=== PATIENT | male | born 1955 | race Hispanic/Latino ===

== ENCOUNTER 2018-06-06 20:23 | Observation (INO) | payer OTHER ==
--- OUTSIDE RECORDS SUMMARY | 2018-06-06 20:25 | XMS REPORT ---
:1955 Author Organization eClinicalWorks Care Team Providers Name Role Phone Rober Rocky Provider Role Unavailable Allergies No Known Allergies Problems Problem Type Condition Code Onset Dates Condition Status Problem Nocturia R35.1 Active Problem Hyperlipidemia E78.5 Active Problem Hypertension I10 Active Problem Hyponatremia E87.1 Active Problem Family history of diabetes mellitus Z83.3 Active Problem SOB (shortness of breath) R06.02 Active Problem Frequency of urination R35.0 Active Problem Allergic rhinitis, seasonal J30.2 Active Problem Erectile dysfunction N52.9 Active Problem Family hx of prostate cancer Z80.42 Active Assessment Wheezing R06.2 Active Assessment Allergic rhinitis, seasonal J30.2 Active Assessment Hyperlipidemia E78.5 Active Assessment SOB (shortness of breath) R06.02 Active Assessment Hypertension I10 Active Assessment Insomnia G47.00 Active Problem Insomnia G47.00 Active Medications Medication Code Code Instructions Start End Status Dosage System Date Date Ezetimibe [facility] [place] 35367792525 10 MG Orally Active 1 tablet Once a day Flonase ND 84139942264 50 MCG/ACT Active 1 spray in Nasally Once a each day nostril Aspirin ND 94379913973 81 MG Orally Active 1 tablet Once a day Cozaar [facility] [place] 97200550737 25 Active TAKE ONE TABLET BY MOUTH DAILY ProAir HFA [facility] [place] 23509284884 108 (90 Base) Active 2 puffs as MCG/ACT needed Inhalation every 6 hrs Albuterol ND 71876276043 (2.5 MG/3ML) June 14, Active 3 ml as Sulfate 0.083% 2018 needed Inhalation Three times a day PRN Cough, Wheezing, Shortness of Breath Symbicort ND 43827057215 160-4.5 MCG/ACT Active 2 puffs Inhalation Twice a day Results No Known Results Summary Purpose eClinicalWorks Submission
--- OUTSIDE RECORDS SUMMARY | 2018-06-06 20:26 | XMS REPORT ---
:1955 Author Organization eClinicalWorks Care Team Providers Name Role Phone Chepe Richterh Provider Role Unavailable Allergies, Adverse Reactions, Alerts Substance Reaction Event Type Viagra Info Not Available Drug Allergy Crestor Info Not Available Drug Allergy Problems Problem Type Condition Code Onset Dates Condition Status Problem Hypertension I10 Active Problem Allergic rhinitis, seasonal J30.2 Active Problem Hyperlipidemia E78.5 Active Problem SOB (shortness of breath) R06.02 Active Problem Hyponatremia E87.1 Active Problem GERD without esophagitis K21.9 Active Problem Family hx of prostate cancer Z80.42 Active Problem Frequency of urination R35.0 Active Problem Family history of diabetes mellitus Z83.3 Active Problem Erectile dysfunction N52.9 Active Assessment Allergic rhinitis, seasonal J30.2 Active Assessment GERD without esophagitis K21.9 Active Assessment Hyponatremia E87.1 Active Assessment Statin not tolerated Z78.9 Active Assessment Hypertension I10 Active Assessment Insomnia G47.00 Active Problem Insomnia G47.00 Active Assessment Hyperlipidemia E78.5 Active Problem Nocturia R35.1 Active Medications Medication Code Code Instructions Start End Status Dosage System Date Date Albuterol [facility] 97799948305 (2.5 MG/3ML) Active 3 ml as Sulfate 0.083% needed Inhalation Three times a day PRN Cough, Wheezing, Shortness of Breath Aspirin ND 47104119896 81 MG Orally Active 1 tablet Once a day Advair HFA [facility] 50296742413 115-21 MCG/ACT Feb , Active 2 puffs Inhalation 2018 Twice a day Pantoprazole ND 52044348759 40 MG Orally Active 1 tablet Sodium Once a day ProAir HFA ND 96153925422 90 Active INHALE TWO PUFFS BY MOUTH FOUR TIMES A DAY NEEDED FOR COUGH,WHEEZI NG AND SHORTNESS OF BREATH Ezetimibe ND 09914800187 10 MG Active TAKE ONE TABLET BY MOUTH DAILY Flonase ND 89825427023 50 MCG/ACT Active 1 spray in Nasally Once a each nostril day Symbicort [facility] 11213021639 160-4.5 MCG/ACT July 15, Active 2 puffs Inhalation 2018 Twice a day Ezetimibe [facility] 60367633035 10 MG Orally Active 1 tablet Once a day Cozaar [facility] 31436822028 50 MG Orally Active take one Once a day tablet by mouth daily Breo Ellipta [facility] 56016393702 100-25 MCG/INH Active 1 puff Inhalation Once a day Results No Known Results Summary Purpose eClinicalWorks Submission
--- OUTSIDE RECORDS SUMMARY | 2018-06-06 20:26 | XMS REPORT ---
[...] Start End Status Dosage System Date Date Symbicort [facility] 60705813243 160-4.5 MCG/ACT Active 2 puffs Inhalation Twice a day ProAir HFA [facility] 13472802385 108 (90 Base) Active 2 puffs as MCG/ACT needed Inhalation every 6 hrs Cozaar [facility] 44874283132 25 Active TAKE ONE TABLET BY MOUTH DAILY Albuterol ND 03298771204 (2.5 MG/3ML) Active 3 ml as Sulfate 0.083% needed Inhalation Three times a day PRN Cough, Wheezing, Shortness of Breath Aspirin ND 31871412094 81 MG Orally Active 1 tablet Once a day Ezetimibe ND 48724561343 10 MG Orally Active 1 tablet Once a day Flonase ND 15797639579 50 MCG/ACT Active 1 spray in Nasally Once a each nostril day ProAir HFA [facility] 78347297102 90 Active INHALE TWO PUFFS BY MOUTH FOUR TIMES A DAY NEEDED FOR COUGH,WHEEZI NG AND SHORTNESS OF BREATH Results No Known Results Summary Purpose eClinicalWorks Submission
[2018-06-06 20:58] LABS: Absolute Lymphocytes (CBC) 0.9 K/uL (0.7-4.9); Absolute Monocytes 0.5 K/uL (0.1-1.3); Basophils % 0.4 % (0-1.3); Eosinophils % 0.1 % (0-4.4); Lymphocytes % 8.4 % (15.3-44.8); MPV 7.2 fL (7.6-11.3); Monocytes % 4.8 % (3.3-12.3); RBC Red Blood Cell Count 4.76 M/uL (4.33-5.43)
[2018-06-06 21:16] LABS: Protime INR 1.11
[2018-06-06 21:24] LABS: Blood Morphology Comment NOT SEEN (NOT SEEN); Platelet Estimate ADEQ; Urine White Blood Cell Casts OK
[2018-06-06 21:27] LABS: ALT/SGPT 66 U/L (12-78); AST/SGOT 45 U/L (15-37); Alkaline Phosphatase 58 U/L (45-117); BUN Blood Urea Nitrogen 9 mg/dL (7-18); Bicarbonate 25 mmol/L (21-32); Bilirubin Direct 0.2 mg/dL (0-0.2); Bilirubin Total 1.5 mg/dL (0.2-1.0); CKMB Creatine Kinase MB < 1.0 ng/mL (0.3-3.6); Creatine Phosphokinase 152 U/L (39-308); Glucose Level 132 mg/dL (74-106); Lipase 77 U/L (73-393); Magnesium 1.6 mg/dL (1.8-2.4); NT PRO-BNP 59 pg/mL (<125); Potassium 4.4 mmol/L (3.5-5.1); Sodium Level 129 mmol/L (136-145); Troponin (Emerg Dept Use Only) < 0.02 ng/mL (0.0-0.045)
--- NOTE | 2018-06-06 21:29 | RAD REPORT ---
EXAM DESCRIPTION: RAD - Chest Single View - 06/06/2018 9:22 pm CLINICAL HISTORY: DYSPNEA Chest pain. COMPARISON: Chest Pa And Lat (2 Views) dated 04/13/2018; Chest Single View dated 03/08/2017; CHEST SINGL E VIEW dated 05/10/2015 FINDINGS: Portable technique limits examination quality. Mild diffuse interstitial prominence is noted which may indicate underlying bronchitis or reactive ai rway disease. No focal infiltrate typical of pneumonia seen. The heart is normal in size. No displace d fractures.
[2018-06-06] MEDS ORDERED: Levofloxacin500mg IV 500 MG/100 ML BAG IV ONE (23:23)
[2018-06-06] MEDS ORDERED: CEFTRIAXONE 1000 MG/VIAL ONE (23:23)
[2018-06-06] MEDS ORDERED: NA CHLORIDE 0.9% 100 ML IV ONE (23:24)
[2018-06-06] MEDS ORDERED: NA CHLORIDE 0.9% 1,000 ML ONE (23:24)
--- NOTE | 2018-06-07 00:48 | EDPHYS ---
Physician Documentation [facility] Name: Joel Romano Age: 62 yrs Sex: Male : 1955 Arrival Date: 06/06/2018 Time: 20:27 Bed 14 Private MD: Rober [facility] ED Physician Yogi Nair HPI: 06/06 22:03 This 62 yrs old Male presents to ER via Wheelchair with complaints of tw4 Breathing Difficulty, Chest Pain. 22:03 The patient has shortness of breath at rest. Onset: The symptoms/episode began/occurred tw4 yesterday. Duration: The symptoms are continuous, and are unchanged since they started. The patient's shortness of breath has no apparent modifying factors. Associated signs and symptoms: The patient has no apparent associated signs or symptoms. Severity of symptoms: At their worst the symptoms were moderate in the emergency department the symptoms are unchanged. The patient has not experienced similar symptoms in the past. Historical: - Allergies: 20:46 No Known Allergies; aj1 - Home Meds: 20:46 Breo Ellipta 100-25 mcg/dose inhalation dsdv 1 puff once daily [Active]; ezetimibe oral aj1 oral [Active]; pantoprazole oral oral [Active]; losartan oral oral [Active]; - PMHx: 20:46 Hyperlipidemia; Hypertension; GERD; aj1 - Immunization history:: Flu vaccine is not up to date. - Social history:: Smoking status: Patient/guardian denies using tobacco. - Ebola Screening: : Patient denies travel to an Ebola-affected area in the 21 days before illness onset. ROS: 22:03 Constitutional: Negative for fever, chills, and weight loss, Eyes: Negative for injury, tw4 pain, redness, and discharge, Cardiovascular: Negative for chest pain, palpitations, and edema, Abdomen/GI: Negative for abdominal pain, nausea, vomiting, diarrhea, and constipation, Back: Negative for injury and pain, MS/Extremity: Negative for injury and deformity, Skin: Negative for injury, rash, and discoloration. 22:03 Respiratory: Positive for Exam: 22:04 Head/Face: Normocephalic, atraumatic. Chest/axilla: Normal chest wall appearance and tw4 motion. Nontender with no deformity. No lesions are appreciated. Cardiovascular: Regular rate and rhythm with a normal S1 and S2. No gallops, murmurs, or rubs. Normal PMI, no JVD. No pulse deficits. 22:04 Abdomen/GI: Soft, non-tender, with normal bowel sounds. No distension or tympany. No guarding or rebound. No evidence of tenderness throughout. Back: No spinal tenderness. No costovertebral tenderness. Full range of motion. MS/ Extremity: Pulses equal, no cyanosis. Neurovascular intact. Full, normal range of motion. Neuro: Awake and alert, GCS 15, oriented to person, place, time, and situation. Cranial nerves II-XII grossly intact. Motor strength 5/5 in all extremities. Sensory grossly intact. Cerebellar exam normal. Normal gait. 22:04 Constitutional: The patient appears in obvious distress, moderately distressed. 22:04 Respiratory: moderate respiratory distress is noted, Respirations: normal, Breath sounds: wheezing: Vital Signs: 20:41 BP 120 / 72; Pulse 118; Resp 29; Temp 98.7; Pulse Ox 85% on R/A; Weight 77.11 kg (R); aj1 Height 5 ft. 11 in. (180.34 cm) (R); Pain 7/10; 21:15 BP 134 / 82; Pulse 106; Resp 22 S; Pulse Ox 90% on 4 lpm NC; cc3 22:10 BP 126 / 74; Pulse 89; Resp 21 S; Pulse Ox 91% on 4 lpm NC; cc3 23:27 BP 113 / 67; Pulse 91; Resp 22 S; Pulse Ox 94% 2 lpm ; cc3 06/07 00:07 BP 132 / 81; Pulse 88; Resp 18 S; Pulse Ox 90% on 2 lpm NC; cc3 01:30 BP 151 / 79; Pulse 87; Resp 18 S; Pulse Ox 92% on 2 lpm NC; cc3 06/06 20:41 Body Mass Index 23.71 (77.11 kg, 180.34 cm) aj1 MDM: 06/06 20:42 Patient medically screened. tw4 06/07 03:14 Differential diagnosis: Anemia Anxiety Reaction asthma, pneumonia, Pneumothorax. Data tw4 reviewed: vital signs, nurses notes. Data interpreted: pl sql developer: rhythm is normal sinus rhythm. Counseling: I had a detailed discussion with the patient and/or guardian regarding: the historical points, exam findings, and any diagnostic results supporting the discharge/admit diagnosis. Special discussion: I discussed with the patient/guardian in detail that at this point there is no indication for admission to the hospital. It is understood, however, that if the symptoms persist or worsen the patient needs to return immediately for re-evaluation. 06/06 20:31 Order name: Blood Culture Adult (2) [facility] 06/06 20:31 Order name: BMP; Complete Time: 21:30 [facility] 06/06 21:30 Interpretation: Normal except: GLUC 132; CL 95; NA 129; GFR 68. 06/06 20:31 Order name: CBC with Diff; Complete Time: 21:30 [facility] 06/06 21:30 Interpretation: Normal except: MPV 7.2; DEANDRE% 86.3; LYM% 8.4; NEUT A 9.0. [facility] 06/06 20:31 Order name: Ckmb [facility] 06/06 20:31 Order name: CPK [facility] 06/06 20:31 Order name: D-Dimer; Complete Time: 21:30 [facility] 06/06 21:30 Interpretation: Normal except: D-DIMER 536. [facility] 06/06 20:31 Order name: Hepatic Function; Complete Time: 21:30 [facility] 06/06 20:31 Order name: Lipase [facility] 06/06 20:31 Order name: Magnesium [facility] 06/06 20:31 Order name: NT PRO-BNP [facility] 06/06 20:31 Order name: PT-INR [facility] 06/06 20:31 Order name: Ptt, Activated [facility] 06/06 20:31 Order name: Troponin (emerg Dept Use Only) [facility] 06/06 21:24 Order name: CBC Smear Scan [facility] 06/06 20:31 Order name: XRAY CXR (1 view) [facility] 06/06 20:31 Order name: EKG; Complete Time: 20:32 [facility] 06/06 20:31 Order name: Cardiac monitoring; Complete Time: 20:46 [facility] 06/06 20:31 Order name: EKG - Nurse/Tech; Complete Time: 20:46 [facility] 06/06 20:31 Order name: IV Saline Lock; Complete Time: 20:46 [facility] 06/06 20:31 Order name: Labs collected and sent; Complete Time: 20:47 06/06 20:31 Order name: O2 Per Protocol; Complete Time: 20:47 tw4 06/06 20:31 Order name: O2 Sat Monitoring; Complete Time: 20:47 tw4 06/06 21:05 Order name: CT Chest For PE Angio tw4 06/07 01:00 Order name: Flu tw4 06/07 01:13 Order name: Lactate EDMS 06/07 01:13 Order name: Procalcitonin EDMS EC/02 22:05 Rate is 104 beats/min. Rhythm is regular, Sinus tachycardia. QRS Bulger is Normal. [place] tw4 interval is normal. QRS interval is normal. QT interval is normal. No Q waves. T waves are Normal. No ST changes noted. Clinical impression: Sinus tachycardia. Interpreted by me. Reviewed by me. Administered Medications: 23:10 Drug: NS 0.9% 1000 ml Route: IV; Rate: 1 bolus; Site: right antecubital; cc3 06/07 00:30 Follow up: Response: No adverse reaction; IV Status: Completed infusion; IV Intake: cc3 1000ml 06/06 23:15 Drug: Rocephin - (cefTRIAXone) 2 grams Route: IVPB; Infused Over: 30 mins; Site: right cc3 antecubital; 23:45 Follow up: Response: No adverse reaction; IV Status: Completed infusion; IV Intake: cc3 100ml 23:50 Drug: LevaQUIN 500 mg Volume: 100 ml; Route: IVPB; Infused Over: 60 mins; Site: right cc3 antecubital; 06/07 01:00 Follow up: Response: No adverse reaction; IV Status: Completed infusion; IV Intake: cc3 100ml Disposition: 06/07/18 00:48 Hospitalization ordered by Manuela Edmonds for Inpatient Admission. Preliminary diagnosis is Pneumonia due to other specified bacteria. - Bed requested for Telemetry/MedSurg (Inpatient). - Status is Inpatient Admission. cc3 - Condition is Stable. - Problem is new. - Symptoms have improved. UTI on Admission? No Signatures: Dispatcher [employer] EDKarissa Walters RN RN aj1 Kiana Almanzar RN RN mw Wadley, Terrence, MD MD tw4 Janina De Leon cc3 Corrections: (The following items were deleted from the chart) 00:45 00:45 06/07/2018 00:45 Discharged to Home. Impression: Pneumonia due to other specified tw4 bacteria. Condition is Stable. Forms are Medication Reconciliation Form, Thank You Letter, Antibiotic Education, Prescription Opioid Use. Follow up: Private Physician; When: Upon discharge from the Emergency Department; Reason: If symptoms return, Recheck today's complaints, Continuance of care. Problem is new. Symptoms have improved. tw4 01:16 00:48 Hospitalization Ordered by Manuela Edmonds MD for Inpatient Admission. Preliminary mw diagnosis is Pneumonia due to other specified bacteria. Bed requested for Telemetry/MedSurg (Inpatient). Status is Inpatient Admission. Condition is Stable. Problem is new. Symptoms have improved. UTI on Admission? No. tw4 01:51 01:16 06/07/2018 00:48 Hospitalization Ordered by Manuela Edmonds MD for Inpatient cc3 Admission. Preliminary diagnosis is Pneumonia due to other specified bacteria. Bed requested for Telemetry/MedSurg (Inpatient). Status is Inpatient Admission. Condition is Stable. Problem is new. Symptoms have improved. UTI on Admission? No. mw
--- NOTE | 2018-06-07 00:48 | ER ---
Nurse's Notes [facility] Name: Joel Romano Age: 62 yrs Sex: Male : 1955 Arrival Date: 06/06/2018 Time: 20:27 Bed 14 Private MD: Rocky Richter Diagnosis: Pneumonia due to other specified bacteria Presentation: 06/06 20:41 Acuity: LEV 2 aj1 20:41 Presenting complaint: Patient states: Chest pain, shortness of breath and aj1 non-productive cough since 1300 today. Patient reports that he has been to the ER multiple times for episodes of difficulty breathing, but the special forces officer has not been able to figure out why. Reports chills. Transition of care: patient was not received from another setting of care. Onset of symptoms was June 06, 2018 at 13:00. Risk Assessment: Do you want to hurt yourself or someone else? Patient reports no desire to harm self or others. Initial Sepsis Screen: Does the patient meet any 2 criteria? RR > 20 per min. HR > 90 bpm. Does the patient have a suspected source of infection? Yes: Productive cough/pneumonia. Care prior to arrival: None. 20:41 Method Of Arrival: Wheelchair aj1 Triage Assessment: 20:46 General: Appears uncomfortable, Behavior is cooperative, anxious. Pain: Complains of aj1 pain in chest Pain currently is 7 out of 10 on a pain scale. Neuro: Level of Consciousness is awake, alert, obeys commands. Cardiovascular: Patient's skin is warm and dry. Rhythm is sinus tachycardia. Respiratory: Reports shortness of breath at rest cough that is non-productive, Airway is patent Respiratory effort is even, labored, Respiratory pattern is regular, symmetrical, tachypnea Onset: The symptoms/episode began/occurred today, the patient has moderate shortness of breath. Historical: - Allergies: 20:46 No Known Allergies; aj1 - Home Meds: 20:46 Breo Ellipta 100-25 mcg/dose inhalation dsdv 1 puff once daily [Active]; ezetimibe oral aj1 oral [Active]; pantoprazole oral oral [Active]; losartan oral oral [Active]; - PMHx: 20:46 Hyperlipidemia; Hypertension; GERD; aj1 - Immunization history:: Flu vaccine is not up to date. - Social history:: Smoking status: Patient/guardian denies using tobacco. - Ebola Screening: : Patient denies travel to an Ebola-affected area in the 21 days before illness onset. Screenin:30 Abuse screen: Denies threats or abuse. Denies injuries from another. Nutritional cc3 screening: No deficits noted. Tuberculosis screening: No symptoms or risk factors identified. Fall Risk Ambulatory Aid- None/Bed Rest/Nurse Assist (0 pts). Gait- Normal/Bed Rest/Wheelchair (0 pts) Mental Status- Oriented to own ability (0 pts). Assessment: 20:46 General: see triage assessment. cc3 20:46 Respiratory: Airway is patent Respiratory effort is even, unlabored, Respiratory cc3 pattern is regular, Breath sounds with wheezes bilaterally. 21:14 Reassessment: Patient appears in no apparent distress at this time. Patient and/or cc3 family updated on plan of care and expected duration. Pain level reassessed. Patient is alert, oriented x 3, equal unlabored respirations, skin warm/dry/pink. 21:27 Reassessment: Laboratory staff named Lily called and relayed critical result for cc3 D-Dimer of 536, Dr. Nair informed. 21:40 Reassessment: Patient taken by mechanical manufacturing technician to CT scan department by stretcher on oxygen cc3 therapy by nasal cannula. 22:10 Reassessment: Patient appears in no apparent distress at this time. Patient and/or cc3 family updated on plan of care and expected duration. Pain level reassessed. Patient is alert, oriented x 3, equal unlabored respirations, skin warm/dry/pink. Patient came back from CT scan department, awaiting result. 23:26 Reassessment: Patient appears in no apparent distress at this time. Patient and/or cc3 family updated on plan of care and expected duration. Pain level reassessed. Patient is alert, oriented x 3, equal unlabored respirations, skin warm/dry/pink. / 00:07 Reassessment: Patient appears in no apparent distress at this time. Patient and/or cc3 family updated on plan of care and expected duration. Pain level reassessed. Patient is alert, oriented x 3, equal unlabored respirations, skin warm/dry/pink. 01:35 Reassessment: Patient appears in no apparent distress at this time. Patient and/or cc3 family updated on plan of care and expected duration. Pain level reassessed. Patient is alert, oriented x 3, equal unlabored respirations, skin warm/dry/pink. Patient for admission, room available to 206, report called and handed over to ARUNA Brown for continuity of care and management. 01:51 Reassessment: Patient appears in no apparent distress at this time. Patient and/or cc3 family updated on plan of care and expected duration. Pain level reassessed. Patient is alert, oriented x 3, equal unlabored respirations, skin warm/dry/pink. Patient left ER for admission vitally stable by wheelchair on oxygen therapy by nasal cannula at 2 LPM [facility] Vital Signs: 06/06 20:41 BP 120 / 72; Pulse 118; Resp 29; Temp 98.7; Pulse Ox 85% on R/A; Weight 77.11 kg (R); aj1 Height 5 ft. 11 in. (180.34 cm) (R); Pain 7/10; 21:15 BP 134 / 82; Pulse 106; Resp 22 S; Pulse Ox 90% on 4 lpm NC; cc3 22:10 BP 126 / 74; Pulse 89; Resp 21 S; Pulse Ox 91% on 4 lpm NC; cc3 23:27 BP 113 / 67; Pulse 91; Resp 22 S; Pulse Ox 94% 2 lpm ; cc3 06/07 00:07 BP 132 / 81; Pulse 88; Resp 18 S; Pulse Ox 90% on 2 lpm NC; cc3 01:30 BP 151 / 79; Pulse 87; Resp 18 S; Pulse Ox 92% on 2 lpm NC; cc3 06/06 20:41 Body Mass Index 23.71 (77.11 kg, 180.34 cm) aj1 ED Course: 06/06 20:27 Patient arrived in ED. es 20:27 Rocky Richter DO is Private Physician. es 20:30 Janina De Leon is Primary Nurse. cc3 20:30 Yogi Nair MD is Attending Physician. tw4 20:30 Patient has correct armband on for positive identification. Bed in low position. Call cc3 light in reach. Side rails up X 1. pvc monitor on. Pulse ox on. NIBP on. 20:40 Inserted saline lock: 20 gauge in right antecubital area, using aseptic technique. fc Blood collected. 20:40 Initial lab(s) drawn, by me, sent to lab. First set of blood cultures drawn by me, EKG fc done, by ED staff, reviewed by Yogi Nair MD. 20:41 Triage completed. aj1 20:46 Arm band placed on Patient placed in an exam room, in view of staff members, on oxygen, aj1 on cardiac care nurse, on pulse oximetry, ARUNA Moreno and ARUNA Roa at bedside. Patient placed on 4L nc, but O2 sat only comes up to 88%. Notified Dr. Nair of patient with shortness of breath and low O2 sat despite oxygen administration. 21:16 Radiology exam delayed due to lab results not completed at this time. (BUN/Creatinine). vm2 21:22 XRAY CXR (1 view) In Process Unspecified. EDMS 21:[address] via stretcher. vm2 21:55 CT Chest For PE Angio In Process Unspecified. EDMS 06/07 00:45 Manuela Edmonds MD is Hospitalizing Provider. tw4 01:51 No provider procedures requiring assistance completed. Patient admitted, IV remains in cc3 place. Administered Medications: 06/06 23:10 Drug: NS 0.9% 1000 ml Route: IV; Rate: 1 bolus; Site: right antecubital; cc3 06/07 00:30 Follow up: Response: No adverse reaction; IV Status: Completed infusion; IV Intake: cc3 1000ml 06/06 23:15 Drug: Rocephin - (cefTRIAXone) 2 grams Route: IVPB; Infused Over: 30 mins; Site: right cc3 antecubital; 23:45 Follow up: Response: No adverse reaction; IV Status: Completed infusion; IV Intake: cc3 100ml 23:50 Drug: LevaQUIN 500 mg Volume: 100 ml; Route: IVPB; Infused Over: 60 mins; Site: right cc3 antecubital; 06/07 01:00 Follow up: Response: No adverse reaction; IV Status: Completed infusion; IV Intake: cc3 100ml Intake: 06/06 23:45 IV: 100ml; Total: 100ml. cc3 06/07 00:30 IV: 1000ml; Total: 1100ml. cc3 01:00 IV: 100ml; Total: 1200ml. cc3 Outcome: 00:45 Discharge ordered by . tw4 00:48 Decision to Hospitalize by Provider. tw4 01:35 Admitted to Med/surg accompanied by tech, via wheelchair, room 206, with oxygen, with cc3 chart, Report called to ARUNA Brown 01:35 Condition: stable 01:35 Instructed on the need for admit, Demonstrated understanding of instructions. 01:51 Patient left the ED. cc3 Signatures: Dispatcher [employer] Karissa Sanabria, RN RN Clarisa Martinez Felicia RN RN Brittany Magana 2 Yogi Nair MD MD tw4 Janina De Leon cc3
[2018-06-07] MEDS ORDERED: ACETAMINOPHEN 500 MG TAB PO PRN (01:45)
[2018-06-07] MEDS ORDERED: ONDANSETRON 4 MG/2 ML VIAL IV PRN (01:45)
[2018-06-07] MEDS ORDERED: NA CHLORIDE 0.9% 1,000 ML IV SCH (02:00)
[2018-06-07] MEDS ORDERED: MAGNESIUM SULFATE 1 gm IVPB 1 GM/100 ML BAG IV ONE (02:21)
[2018-06-07 02:28] VITALS: BMI 24.3
[2018-06-07] MEDS: ALBUTEROL 2.5 MG/3 ML NEB SOL NEB PRN ×2 (02:30→08:07)
[2018-06-07] MEDS: IPRATROPIUM BROM 0.5MG/2.5ML NEB PRN ×2 (02:30→08:07)
--- NOTE | 2018-06-07 04:48 | P.HP ---
Certification for Inpatient Patient admitted to: Inpatient With expected LOS: >2 Midnights Practitioner: I am a practitioner with admitting privileges, knowledge of patient current condition, hospital course, and medical plan of care. Services: Services provided to patient in accordance with Admission requirements found in Title 42 Section 412.3 of the Code of Federal Regulations Patient History Date of Service: 06/07/18 Reason for admission: acute respiratory failure History of Present Illness: Mr Romano is a 62 years old male with history of HTN, Dyslipidemia, GERD, former smoker who start about 1 week ago with wet cough. Yesterday he start feeling lethargic, with progressive SOB, worsening cough. He denied fever, but has has chills and sweating episodes. At arrival the patient was febrile 100.2 F, tachypneic, O2 sat 85% on RA. Lab work shows normal WBC count, with normal lactate but elevated Procalcitonin. Sodium and chloride low consistent with volume depletion. D-Dimer was mildly elevated, subsequent CTA chest shows no PE , however, it was remarkable for bibasilar patchy infiltrate, more on the left. Allergies No Known Allergies Allergy (Verified 06/07/18 02:07) Home medications list reviewed: Yes Home Medications: Budesonide/Formoterol Fumarate [Symbicort 160-4.5 Mcg Inhaler] 1 puff IH DAILY PRN 06/07/18 Ezetimibe [Zetia*] 1 tab PO DAILY 06/07/18 Fluticasone/Vilanterol [Breo Ellipta 100-25 Mcg INH] 1 puff IH DAILY PRN Losartan Potassium [Cozaar*] 1 tab PO DAILY 06/07/18 Pantoprazole [Protonix Tab*] 1 tab PO DAILY 06/07/18 - Past Medical/Surgical History Has patient received pneumonia vaccine in the past: No Diabetic: No -: htn -: high cholesterol -: GERD Past Surgical History: Reviewed- Non-Contributory - Family History Father -: Cancer, Liver disease Notes: pacreatic [place] Mother -: Diabetes Sister -: Liver disease Brother -: Heart disease - Social History Smoking Status: Former smoker Alcohol use: Yes CD- Drugs: No Caffeine use: No Place of Residence: Home Review of Systems 10-point ROS is otherwise unremarkable Physical Examination - Vital Signs Temperature: 98.7 F Blood Pressure: 118/59 Pulse: 84 Respirations: 20 Pulse Ox (%): 91 - Physical Exam General: Alert, In no apparent distress HEENT: Atraumatic, PERRLA, Mucous membr. moist/pink, EOMI, Sclerae nonicteric Neck: Supple, 2+ carotid pulse no bruit, No LAD, Without JVD or thyroid abnormality Respiratory: Normal air movement, Crackles/rales (left base crackles) Cardiovascular: Regular rate/rhythm, Normal S1 S2 Gastrointestinal: Normal bowel sounds, No tenderness Musculoskeletal: No tenderness Integumentary: No rashes Neurological: Normal speech, Normal strength at 5/5 x4 extr, Normal tone, Normal affect Lymphatics: No axilla or inguinal lymphadenopathy - Studies Laboratory Data (last 24 hrs) 06/06/18 20:40: PT 13.0 H, INR 1.11, APTT 29.6 06/06/18 20:40: WBC 10.5, Hgb 15.1, Hct 44.0, Plt Count 319 06/06/18 20:40: Sodium 129 L, Potassium 4.4, BUN 9, Creatinine 1.11, Glucose 132 H, Magnesium 1.6 L, Total Bilirubin 1.5 H, AST 45 H, ALT 66, Alkaline Phosphatase 58, Lipase 77 Microbiology Data (last 24 hrs): 06/07/18 01:05 Nasopharnyx Influenza Type A Antigen Screen - Final 06/07/18 01:05 Nasopharnyx Influenza Type B Antigen Screen - Final Assessment and Plan - Problems (Diagnosis) (1) Acute respiratory failure Current Visit: Yes Status: Acute Qualifiers: Respiratory failure complication: hypoxia Qualified Code(s): J96.01 - Acute respiratory failure with hypoxia (2) Pneumonia Current Visit: Yes Status: Acute Qualifiers: Pneumonia type: due to unspecified organism Laterality: bilateral Lung location: lower lobe of lung Qualified Code(s): J18.1 - Lobar pneumonia, unspecified organism (3) Hyponatremia Current Visit: Yes Status: Acute (4) Volume depletion Current Visit: Yes Status: Acute - Plan Will admit the patient due to acute respiratory failure secondary to bilateral pneumonia. Influenza negative, blood cultures in process. DVT prophylaxis with Lovenox. Will order IV Rocephin and Azithromycin, IV fluids, breathing treatment and oxygen support. Consult Dr Bradford. - Advance Directives Does patient have a Living Will: No Does patient have a Durable POA for Healthcare: No - Code Status/Comfort Care Code Status Assessed: Yes Code Status: Full Code
[2018-06-07 08:09] LABS: Urine Appearance CLEAR; Urine Bilirubin NEGATIVE (NEG); Urine Blood NEGATIVE (NEG); Urine Color YELLOW; Urine Glucose NEGATIVE (NEG); Urine Protein TRACE (NEG); Urine Specific Gravity 1.015 (1.005-1.030); Urine Urobilinogen 0.2 mg/dL (0.2-1.0); Urine pH 7.5 (5.0-7.0)
[2018-06-07 08:14] LABS: Urine Microscopic Reflex ORDER UMIC
[2018-06-07] MEDS ORDERED: ARFORMOTEROL TARTRATE 15 MCG/2 ML VIAL.NEB NEB SCH (08:56)
[2018-06-07] MEDS ORDERED: AZITHROMYCIN IV 500 MG in NA CHLORIDE 0.9% 250 ML IVPB SCH (09:00)
[2018-06-07] MEDS ORDERED: CEFTRIAXONE 1 GM/NS 50 ML 1 GM/50 ML BAG IV SCH (09:00)
[2018-06-07] MEDS ORDERED: CEFUROXIME 250 MG TAB PO SCH (09:00)
[2018-06-07] MEDS ORDERED: CEFTRIAXONE/SWI 1gm 1 GM/10 ML SYR IV SCH (09:00)
[2018-06-07] MEDS ORDERED: ENOXAPARIN 40 MG/0.4 ML SQ SCH (09:00)
[2018-06-07] MEDS ORDERED: predniSONE 20 MG TAB PO SCH (09:00)
[2018-06-07] MEDS ORDERED: HOME MED 1 EA UNK (Fluticasone/Vilanterol [Breo Ellipta 100-25 Mcg Inh] 1 PUFF) IH PRN (09:13)
[2018-06-07] MEDS ORDERED: Budesonide/Formoterol Fumarate (Symbicort) 160-4.5 Mcg Inhaler IH PRN (09:13)
[2018-06-07 09:24] LABS: Urine Bacteria NONE SEEN /HPF (NONE SEEN); Urine RBC <5 /HPF (NONE SEEN)
[2018-06-07 09:25] LABS: Urine Culture Reflex Order NOT NEEDED
--- NOTE | 2018-06-07 12:39 | P.CNS ---
Date of Consult: 06/07/18 Chief Complaint: Chest pain History of Present Illness: Patient is he was initially evaluated for lower sternal pain and 8 resolved with the use of bronchodilators and proton pump inhibitor the time of my followup 1 or 2 weeks ago he was doing much better he in no discomfort admitted to the hospital with sudden onset of discomfort he also complains of wheezing and tightness he may have underlying obstructive airways disease patient stop taking his Breo under my advice patient is mildly hypernatremic feeling a lot better not pain has resolved Allergies No Known Allergies Allergy (Verified 06/07/18 02:07) Home Medications: Budesonide/Formoterol Fumarate [Symbicort 160-4.5 Mcg Inhaler] 1 puff IH DAILY PRN 06/07/18 Ezetimibe [Zetia*] 1 tab PO DAILY 06/07/18 Fluticasone/Vilanterol [Breo Ellipta 100-25 Mcg INH] 1 puff IH DAILY PRN Losartan Potassium [Cozaar*] 1 tab PO DAILY 06/07/18 Pantoprazole [Protonix Tab*] 1 tab PO DAILY 06/07/18 - Past Medical/Surgical History Diabetic: No -: htn -: high cholesterol -: GERD - Family History Father Medical History: Cancer, Liver disease Notes: pacreatic [place] Mother Medical History: Diabetes Sister Medical History: Liver disease Brother Medical History: Heart disease - Social History Alcohol use: Yes CD- Drugs: No Caffeine use: No Place of Residence: Home Review of Systems 10-point ROS is otherwise unremarkable General: Weakness Physical Examination Temp Pulse Resp BP Pulse Ox 99.2 F 70 18 131/72 95 06/07/18 12:00 06/07/18 12:00 06/07/18 12:00 06/07/18 12:00 06/07/18 12:00 General: Alert, Oriented x3 HEENT: Atraumatic Neck: Supple Respiratory: Clear to auscultation bilaterally Cardiovascular: No edema, Regular rate/rhythm Laboratory Data (last 24 hrs) 06/06/18 20:40: PT 13.0 H, INR 1.11, APTT 29.6 06/06/18 20:40: WBC 10.5, Hgb 15.1, Hct 44.0, Plt Count 319 04/02/19 20:40: Sodium 129 L, Potassium 4.4, BUN 9, Creatinine 1.11, Glucose 132 H, Magnesium 1.6 L, Total Bilirubin 1.5 H, AST 45 H, ALT 66, Alkaline Phosphatase 58, Lipase 77 - Problems (1) Chest pain Current Visit: Yes Status: Acute Plan: Patient is 62 years of age admitted with lower sternal pain he had this pain before patient is also complaining of shortness of breath chest tightness as symptoms improve with the use of PPI and bronchodilator bronchodilator was recently stopped and his symptoms reoccurred more than likely he has underlying obstructive airways disease and will need to resume his Breo at home patient has mild hyponatremia normal renal function CT scan reviewed shows nonspecific inflammatory changes in the left lower lobe official report is pending patient can be discharged home resume his Breo and PPI in addition to low-dose prednisone and cefuroxime follow up with me in 2 weeks otherwise is stable no fever
[2018-06-07 14:40] LABS: Potassium 4.1 mmol/L (3.5-5.1)
[2018-06-07 14:58] LABS: Magnesium 2.4 mg/dL (1.8-2.4)
[2018-06-07 16:12] VITALS: BP 123/71; TEMP 97.9
[2018-06-07 16:19] VITALS: O2SAT 98
--- NOTE | 2018-06-07 23:58 | DS ---
Date of Discharge: 06/07/2018 Retail Selling Specialist: Dr. Bradford with Pulmonology. Discharge Diagnoses: 1.Acute respiratory failure with hypoxia, resolved. 2.Bilateral pneumonia, lower lobe, improving. 3.Hyponatremia, improved. 4.Volume depletion. 5.Obstructive airway disease. 6.Mixed hyperlipidemia, stable. 7.Essential hypertension stable. Hospital Course: The patient is a 62-year-old male with history of hypertension, dyslipidemia, GERD, who comes in with a cough and shortness of breath. The patient is a former smoker. The patient's D -dimer was elevated. CT did not show any PE, did show some bibasilar patchy infiltrates, more on the left. The patient was started on antibiotics and IV fluids. The patient was seen by Dr. Bradford w [facility] Pulmonology and he was switched over to p.o. antibiotics with Ceftin and Brovana. The patient wa s also placed on some oral steroids. The patient's sodium level was repeated and the patient was the n weaned off oxygen. The patient was then cleared for discharge from pulmonology standpoint and was sent home in a stable condition. Activity: As tolerated. Medications: As per medication reconciliation list. Followup: Follow up with PCP in 2-3 days. Follow up with turntable worker, Dr. Bradford, in 2 weeks. Return to ER for worsening condition. Physical Examination: General: Awake, alert, oriented x3. No acute distress. CV: S1, S2. No murmurs. Peripheral pulses present. Respiratory: Diminished breath sounds at the bases. Minimal wheezing. Gastrointestinal: Abdomen is soft, nontender, nondistended. Positive bowel sounds. Extremities: No clubbing, cyanosis, or edema. Neurologic: Nonfocal. SA/MODL Voice ID: [id number] Report ID: [id number]
--- NOTE | 2018-06-08 08:50 | RAD REPORT ---
EXAM DESCRIPTION: [id number] - Chest For Pe Angio TECHNIQUE: CT angiography of the chest was performed with axial dataset after bolus intravenous inje ction of intravenous contrast including computer-generated multiplanar MIP reformations. Total Dose L ength Product: 389. This exam was performed according to our departmental dose-optimization program, which includes automated exposure control, adjustment of the mA and/or kV according to patient size a nd/or use of iterative reconstruction technique. Comparison studies: None. CLINICAL HISTORY: DYSPNEA. CT Chest: FINDINGS: Pulmonary arteries: Main, right, left pulmonary arteries are opacified without evidence fo r large, central or saddle embolus. The branching segmental arteries are normal proximally but distal ly not well evaluated due to heterogeneous bolus timing. No evidence for acute pulmonary embolism oth erwise. Cardiac: Heart size: Normal. Pericardial effusion None. Right ventricular strain: None. Left atrial clot: None. Aorta: Normal. Lungs: Small interstitial infiltrate in the right middle lobe. Patchy airspace consolidation in the left lower lobe. Small acinar nodular opacity at the right base and in the lingula. Pleura: No effusion. Mediastinum: Mildly enlarged lymph nodes particularly in the prevascular compartment where the larges t node measures 2.5 cm. Kaylyn: Subcentimeter bilateral hilar nodes.. Musculoskeletal: Unremarkable. Upper abdomen: Fatty liver. IMPRESSION: 1. There is no evidence for acute pulmonary embolism. 2. Patchy bilateral pneumonia particularly in the left lower lobe without pleural effusion. 3. Mild adenopathy. Electronically signed by: Jesus Barroso MD 06/06/2018 10:05 PM CDT Due to temporary technical issues with the PACS/Fluency reporting system, reports are being signed by the in house radiologist as a courtesy to ensure prompt reporting. The interpreting radiologist is f ully responsible for the content of the report.
[2018-06-08] MEDS ORDERED: LOSARTAN POTASSIUM 50 MG PO SCH (09:00)
[2018-06-08] MEDS ORDERED: EZETIMIBE 10 MG PO SCH (09:00)
[2018-06-08] MEDS ORDERED: PANTOPRAZOLE 40 MG PO SCH (09:00)
== END 2018-06-07 17:55 | disposition home or self-care (01) ==
LOC: ER 20:23 → ERHOLD 06-07 01:17 → INTOOBSV 06-07 01:17 → 2ND 06-07 01:41
PROVIDERS: ADMIT Internal Medicine; ATTEND Family Medicine
DX: J96.01 Acute respiratory failure with hypoxia (principal); J18.1 Lobar pneumonia, unspecified organism; E87.1 Hypo-osmolality and hyponatremia; E86.9 Volume depletion, unspecified; J44.9 Chronic obstructive pulmonary disease, unspecified; E78.2 Mixed hyperlipidemia; I10 Essential (primary) hypertension; K21.9 Gastro-esophageal reflux disease without esophagitis; E78.00 Pure hypercholesterolemia, unspecified; Z87.891 Personal history of nicotine dependence
CPT/HCPCS: 96365; 96367; 87040 ×2; 85025; 80048 ×2; 36415; 83735 ×2; 82550; 85610; 85379; 80076; 83605; 85730; 84484; 82553; 83690; 84145; 83880; 87804 ×2; 71275; 71045; 94640; 99285; Q9967; J1650; J3475; J7605; J0696; J7030 ×2; G0378 ×2; 81003; 81015; J0456; J7512

== ENCOUNTER 2020-02-13 08:12 | Day surgery (SDC) | payer OTHER ==
--- NOTE | 2020-02-11 08:58 | RAD REPORT ---
EXAM DESCRIPTION: RAD - Chest Pa And Lat (2 Views) - 02/11/2020 8:51 am CLINICAL HISTORY: pre op Chest pain. COMPARISON: Chest Single View dated 06/06/2018; Chest Pa And Lat (2 Views) dated 04/13/2018; Chest Singl e View dated 03/08/2017; CHEST SINGLE VIEW dated 05/10/2015 FINDINGS: The lungs are clear. The heart is upper limit of normal in size. No displaced fractures. IMPRESSION: No acute or concerning finding suspected.
[2020-02-11 08:59] LABS: Absolute Lymphocytes (CBC) 2.9 K/uL (0.7-4.9); Basophils % 1.4 % (0-1.3); Hematocrit 40.9 % (39.6-49.0); Lymphocytes % 43.7 % (15.3-44.8); MPV 7.1 fL (7.6-11.3); RBC Red Blood Cell Count 4.38 M/uL (4.33-5.43)
[2020-02-13] MEDS ORDERED: Ringers Lactate 1,000 ML IV ONE (09:07)
[2020-02-13 09:21] VITALS: BP 148/87; TEMP 97.4; O2SAT 98
[2020-02-13] MEDS ORDERED: LIDOCAINE 1% MPF 5 ML VIAL ONE (10:42)
[2020-02-13] MEDS ORDERED: propofoL 200 MG/20 ML VIAL IV ONE (10:42)
--- NOTE | 2020-02-13 11:05 | ENDO RPT ---
[address], [address] COLONOSCOPY PROCEDURE REPORT EXAM DATE: 02/13/2020 PATIENT NAME: Joel Romano MR #: [id number] BIRTHDATE: 1955 ATTENDING: Chago Claire M.D. STATUS: outpatient POLICE CHIEF: Donna Blackman RN and Nola Reynolds RN INDICATIONS: The patient is a 64 yr old Male here for a colonoscopy due to colon cancer screening and constipation PROCEDURE PERFORMED: Colonoscopy with hot biopsy polypectomy MEDICATIONS: Per Anesthesia. ESTIMATED BLOOD LOSS: None CONSENT: The patient understands the risks and benefits of the procedure and understands that these risks include, but are not limited to: sedation, allergic reaction, infection, perforation and/or bleeding. Alternative means of evaluation and treatment include, among others: physical exam, x-rays, and/or surgical intervention. The patient elects to proceed with this endoscopic procedure. DESCRIPTION OF PROCEDURE: During intra-op preparation period all mechanical medical equipment was checked for proper function. Hand hygiene and appropriate measures for infection prevention was taken. Procedure, possible complications, alternatives including, but not limited to possibility of bleeding, perforation, tear, infection, sepsis, need for surgery, need for blood transfusion, were explained to the patient. After the risks, benefits and alternatives of the procedure were thoroughly explained, Informed consent was verified, confirmed and timeout was successfully executed by the treatment team. The patient was placed in the left lateral position. A digital rectal exam was performed and revealed an enlarged prostate. After appropriate level of anesthesia, the scope was passed. The EC-[id number] ([id number]) endoscope was introduced through the anus and advanced to the cecum, which was identified by the ileocecal valve. The quality of the prep was good. The instrument was then slowly withdrawn as the colon was fully examined. Scope withdrawal time was 15 minutes. COLON FINDINGS: Small internal hemorrhoids were found. A small smooth semi-pedunculated polyp was found in the rectum. A biopsy was performed. Retroflexed views revealed no abnormalities. The scope was then completely withdrawn from the patient and the procedure terminated. ADVERSE EVENTS: There were no complications. IMPRESSIONS: 1. Small internal hemorrhoids 2. Small semi-pedunculated polyp was found in the rectum; biopsy was performed RECOMMENDATIONS: 1. follow-up: office 1 week(s) 2. increase dietary water 3. fiber rich diet RECALL: Return in 3 year(s) for Colonoscopy. Chago Claire M.D. eSigned: Chago Claire M.D. 02/13/2020 11:05 AM cc: Rocky Richter MD CPT CODES: ICD9 CODES: 1. 600.0 Hypertrophy (benign) of prostate 2. 569.0 Anal and rectal polyp PATIENT NAME: Juan Antonio Joel C. MR#: [id number]
[2020-02-13] MEDS: FENTANYL CITR 100 MCG/2 ML ONE ×2 (11:18→11:38)
--- OUTSIDE RECORDS SUMMARY | 2020-02-13 11:40 | XMS REPORT | Continuity of Care Document ---
:1955 Author Organization [facility] t Address [address] [place] [address] Care Team Providers Name Role Phone Unavailable Unavailable Unavailable Problems Condition Condition Condition Status Onset Resolution Last Treating Co mments Source Name Details Category Date Date Treatment Clinician Date Nocturia Nocturia [facility] Hyperlipid Hyperlipid Problem Active [facility] emia [facility] Hypertensi Hypertensi Problem Active [facility] Hyponatrem Hyponatrem Problem Active [facility] ia [facility] Family Family Problem Active [facility] history of history of Lani kes - diabetes diabetes Memori a mellitus mellitus l [facility] SOB SOB Problem Active [facility] (shortness (shortness Lani kes - of breath) of breath) Me moria [facility] Frequency Frequency Problem Active [facility] - urination urination Navdeep diane l [facility] Allergic Allergic Diagnosis Active [facility] rhinitis, rhinitis, Luke s - seasonal seasonal Memori a l [facility] Erectile Erectile Problem Active [facility] dysfunctio dysfunctio Lani kes - n n Memoria [facility] Family hx Family hx Problem Active [facility] - prostate prostate Memori a cancer cancer [facility] Insomnia Insomnia Problem [facility] GERD GERD Problem Active [facility] without without [facility] - esophagiti esophagiti Me moria s s l [facility] Chronic Chronic Problem Active [facility] obstructiv obstructiv Lani kes - e e Memoria pulmonary pulmonary l disease, disease, Outpat i unspecifie unspecifie en t d COPD d COPD Clinics type type Subclinica Subclinica Diagnosis Active [facility] - hypothyroi hypothyroi Me moria dism dism l [facility] Non-season Non-season Problem Active [facility] al al [facility] - allergic allergic Memori a rhinitis, rhinitis, l unspecifie unspecifie Ou tpati d trigger d trigger ent Clinics Allergic Allergic Problem Active [facility] rhinitis, rhinitis, Luke s - unspecifie unspecifie Me moria d d l seasonalit seasonalit Ou tpati y, y, ent unspecifie unspecifie Cl inics d trigger d trigger Screen for Screen for Diagnosis Active [facility] colon colon [facility] - cancer cancer Memoria [facility] Statin not Statin not Diagnosis Active [facility] tolerated tolerated Luke s - Memoria l [facility] Former Former Diagnosis Active [facility] heavy [facility] Elevated Elevated Diagnosis Active [facility] PSA PSA kes - [facility] Encounter Encounter Diagnosis Active [facility] for for [facility] - wellness wellness Memori a examinatio examinatio l n in adult n in adult Ou tpati ent Clinics Allergies, Adverse Reactions, Alerts Allergy Allergy Status Severity Reaction(s) Onset Inactive Treating Comm ents Source Name Type Date Date Clinician Viagra Adverse Active Info Not [facility] Reaction Available [facility] Crestor Adverse Active Info Not [facility] Reaction Available [facility] Medications Ordered Filled Start Stop Current Ordering Indication Dosage Frequency Signature Comments Components Source Medication Medication Date Date Medication? Clinician (SIG) Name Name Fluticasone Fluticasone 2020-0 Yes Rocky [address] [facility] -Salmeterol -Salmeterol 5-15 [facility] - 00:00: Memoria 00 [facility] Aspirin Aspirin Yes Rocky [address] [facility] Advair HFA Advair HFA Yes Rocky [address] [facility] [address] [facility] Flonase Flonase Yes Rocky [address] spray [address] [facility]ter each [facility] - nostril Memoria [facility] Cozaar Cozaar Yes Rocky take one [facility] tablet by [facility] - mouth Memoria daily [facility] Ezetimibe Ezetimibe Yes Rocky [address] [facility] Omeprazole Omeprazole Yes Rocky [address] [facility] Albuterol Albuterol Yes Rocky [address] [facility] Sulfate Sulfate Richter needed [facility] Albuterol Albuterol Yes Rocky [address] [facility] Sulfate HFA Sulfate HFA [facility] needed [facility] Immunizations Ordered Filled Immunization Date Status Comments Sour e Immunization Name Name Flucelvax - Flucelvax - 2018-12-[address] [facility] - multidose vial multidose vial 00:00:00 [facility] Afluria Afluria 2018-07-[address] [facility] - 00:00:00 [facility] TDAP > 7 TDAP > 7 2018-07-[address] [facility] - Years-Adacel Years-Adacel 00:00:00 [facility] Procedures This patient has no known procedures. Encounters Start End Encounter Admission Attending Care Care Encounter Source Date/Time Date/Time Type Type Clinicians Facility Department ID 2019-10-25 2019-10-25 [facility] [id number] [facility] 11:00:00 11:00:00 [facility] Medicine Medicine Outpati ent Clinics 2019-09-12 2019-09-12 [facility] [id number] [facility] 13:02:00 13:02:00 [facility] Medicine l Medicine Outpati ent Clinics 2019-08-17 2019-08-17 [facility] [id number] [facility] 10:00:00 10:00:00 [facility] Medicine l Medicine Outpati ent Clinics 2019-07-24 2019-07-24 [facility] [id number] [facility] 15:08:00 15:08:00 [facility] [employer] [facility] Medicine l Medicine Outpati ent Clinics 2019-07-13 2019-07-13 [facility] [id number] 10:33:00 10:33:00 [facility] Medicine l Medicine Outpati ent Clinics 2019-07-09 2019-07-09 [facility] [id number] [address] 08:00:00 08:00:00 t Calvin Calvin benchee Luke s - Drive [facility] Medicine l Medicine Outpati ent Clinics 2019-04-02 2019-04-02 [facility] [id number] [facility] 16:24:00 16:24:00 t Calvin Calvin benchee [employer] Loft s - Drive [facility] l Medicine Outpati ent Clinics 2019-04-02 2019-04-02 [facility] [id number] [address] 09:45:00 09:45:00 t Calvin Calvin benchee [employer] - Drive [facility] l Medicine Outpati ent Clinics 2019-03-19 2019-03-19 [facility] [id number] [address] 09:00:00 09:00:00 t Calvin Calvin benchee [employer] s - Drive [facility] l Medicine Outpati ent Clinics 2018-12-25 2018-12-25 [facility] [id number] [address] 10:00:00 10:00:00 t Calvin Calvin [employer] s - Drive [facility] Medicine l Medicine Outpati ent Clinics 2018-09-26 2018-09-26 [facility] [id number] [address] 14:45:00 14:45:00 t Calvin Calvin [employer] s - Drive [facility] Medicine l Medicine Outpati ent Clinics 2018-07-12 2018-07-12 [facility] [id number] 14:45:00 14:45:00 t Calvin Calvin benchee [employer] - Drive [facility] Medicine l Medicine Outpati ent Clinics 2018-06-12 2018-06-12 [facility] [id number] 14:45:00 14:45:00 t Calvin Calvin [employer] s - Drive [facility] l Medicine Outpati ent Clinics 2018-05-08 2018-05-08 [facility] [id number] 09:00:00 09:00:00 t Calvin Calvin benchee [employer] - Drive [facility] Medicine l Medicine Outpati ent Clinics 2017-08-15 2017-08-15 [facility] [id number] 08:30:00 08:30:00 t [facility] 2017-06-14 2017-06-14 Outpatient Denzel Ramirez [id number] [address] 11:00:00 11:00:00 [facility] Results This patient has no known results.
[2020-02-13] MEDS ORDERED: GLUCAGON 1 MG/VIAL ONE ×2 (12:08→12:35)
[2020-02-13] MEDS ORDERED: ONDANSETRON 4 MG/2 ML VIAL ONE (12:13)
--- NOTE | 2020-02-13 13:19 | RAD REPORT ---
EXAM DESCRIPTION: RAD - Abdomen W Erect - 02/13/2020 12:38 pm CLINICAL HISTORY: post colonoscopy , abdominal pain and distention COMPARISON: No comparisons TECHNIQUE: Supine and upright views of the abdomen were obtained. FINDINGS: There is prominent- is distention of the colon, not unexpected or unusual post colonoscopy . There is no free air or pneumatosis. Air is seen within several nondilated small bowel loops. No velasco spicious calcifications. Stomach is decompressed. No bone abnormalities of significance. IMPRESSION: Prominent gas distention of the entire colon without free air, pneumatosis or other armen gent finding.
== END 2020-02-13 14:05 | disposition home or self-care (01) ==
LOC: OR 08:12
PROVIDERS: ATTEND Surgery
PROC: 0DBP8ZX Excision of Rectum, Via Natural or Artificial Opening Endoscopic, Diagnostic (ICD-10-PCS; principal; 2020-02-13 09:30)
DX: D12.8 Benign neoplasm of rectum (principal); K64.9 Unspecified hemorrhoids; K59.00 Constipation, unspecified; Z20.828 Contact with and (suspected) exposure to other viral communicable diseases; I10 Essential (primary) hypertension; R09.81 Nasal congestion
CPT/HCPCS: 93005; 85025; 80048; 36415; 88305; 74019; 71046; 45384; U0002; J2704; J1610 ×2; J3010; J7120; J2405

== ENCOUNTER 2020-04-20 14:44 | Observation (INO) | payer OTHER ==
[2020-04-20 15:41] LABS: Absolute Lymphocytes (CBC) 2.8 K/uL (0.7-4.9); Basophils % 0.6 % (0-1.3); Lymphocytes % 18.9 % (15.3-44.8); MPV 7.2 fL (7.6-11.3); RBC Red Blood Cell Count 4.61 M/uL (4.33-5.43)
[2020-04-20 15:42] LABS: Protime INR 1.01
[2020-04-20 15:57] LABS: ALT/SGPT 30 U/L (12-78); AST/SGOT 21 U/L (15-37); Albumin 4.3 g/dL (3.4-5.0); Alkaline Phosphatase 61 U/L (45-117); BUN Blood Urea Nitrogen 11 mg/dL (7-18); Bicarbonate 26 mmol/L (21-32); Bilirubin Direct 0.1 mg/dL (0-0.2); Bilirubin Total 0.6 mg/dL (0.2-1.0); Glucose Level 93 mg/dL (74-106); Magnesium 1.8 mg/dL (1.8-2.4); NT PRO-BNP 10 pg/mL (<125); Potassium 3.9 mmol/L (3.5-5.1); Protein, Total 8.1 g/dL (6.4-8.2); Sodium Level 132 mmol/L (136-145); Troponin (Emerg Dept Use Only) < 0.02 ng/mL (0.0-0.045)
[2020-04-20] MEDS ORDERED: ONDANSETRON 4 MG/2 ML VIAL ONE (16:31)
[2020-04-20] MEDS ORDERED: MORPHINE 4 MG/ML SYR ONE (16:31)
--- NOTE | 2020-04-20 16:38 | RAD REPORT ---
EXAM DESCRIPTION: Nery Single View04/20/2020 3:42 pm CLINICAL HISTORY: Chest pain COMPARISON: 2019 FINDINGS: The lungs appear clear of acute infiltrate. The heart is normal size IMPRESSION: No acute abnormalities displayed
--- NOTE | 2020-04-20 18:41 | RAD REPORT ---
EXAM DESCRIPTION: CT - Chest For Pe Angio - 04/20/2020 6:21 pm CLINICAL HISTORY: Chest pain COMPARISON: 2019 TECHNIQUE: Dynamically enhanced axial 3 mm thick images of the chest were obtained during administra tion of <100> mL Isovue 370 IV contrast. Coronal and oblique reconstruction images were generated and reviewed. Exam utilizes a protocol for optimal evaluation of pulmonary arterial tree. Maximum intensity projections 3D imaging was utilized All CT scans are performed using dose optimization technique as appropriate and may include automated exposure control or mA/KV adjustment according to patient size. FINDINGS: Suboptimal opacification of the pulmonary arteries. In addition respiratory motion artifac t limits evaluation the peripheral pulmonary arteries. No gross central pulmonary embolism seen A thoracic aortic aneurysm is not noted. A pleural effusion is not seen. A pericardial effusion is not seen. A lung consolidation is not present. Fatty liver IMPRESSION: No gross central pulmonary embolism seen
[2020-04-20] MEDS ORDERED: CEFTRIAXONE/SWI 1gm 1 GM/10 ML SYR ONE (18:57)
--- NOTE | 2020-04-20 19:01 | ER ---
Nurse's Notes [facility] Name: Joel Romano Age: 64 yrs Sex: Male : 1955 Arrival Date: 04/20/2020 Time: 14:46 Bed 16 Private MD: Diagnosis: Chest pain, unspecified Presentation: 04/20 14:55 Chief complaint: Patient states: Chest pressure since 8 am, gotten worse today. No SOB ll1 or cough. Coronavirus screen: Client denies travel out of the [place] in the last 14 days. At this time, the client does not indicate any symptoms associated with coronavirus-19. Ebola Screen: Patient denies travel to an Ebola-affected area in the 21 days before illness onset. Initial Sepsis Screen: Does the patient meet any 2 criteria? HR > 90 bpm. No. Patient's initial sepsis screen is negative. Does the patient have a suspected source of infection? No. Patient's initial sepsis screen is negative. Risk Assessment: Do you want to hurt yourself or someone else? Patient reports no desire to harm self or others. Onset of symptoms was April 20, 2020. 14:55 Method Of Arrival: Ambulatory ll1 14:55 Acuity: LEV 3 ll1 Historical: - Allergies: 14:57 eggs; ll1 14:57 preservitives; ll1 - PMHx: 14:57 GERD; Hyperlipidemia; Hypertension; ll1 - PSHx: 14:57 None; ll1 - Immunization history:: Flu vaccine is up to date. - Social history:: Smoking status: Patient denies any tobacco usage or history of. Screenin:34 Abuse screen: Denies threats or abuse. Nutritional screening: No deficits noted. vg1 Tuberculosis screening: No symptoms or risk factors identified. Fall Risk No fall in past 12 months (0 pts). No secondary diagnosis (0 pts). IV access (20 points). Ambulatory Aid- None/Bed Rest/Nurse Assist (0 pts). Gait- Normal/Bed Rest/Wheelchair (0 pts) Mental Status- Oriented to own ability (0 pts). Total Sawyer Fall Scale indicates No Risk (0-24 pts). Assessment: 15:30 General: Appears in no apparent distress. uncomfortable, Behavior is calm, cooperative. vg1 Pain: Complains of pain in mid-sternal area Pain does not radiate. Pain currently is 7 out of 10 on a pain scale. Quality of pain is described as sharp, Pain began earlier today. Neuro: Level of Consciousness is awake, alert, obeys commands, Oriented to person, place, time, situation. Neuro: Denies headache. Cardiovascular: Patient's skin is warm and dry. Respiratory: Airway is patent Respiratory effort is even, unlabored, Respiratory pattern is regular, symmetrical. GI: Patient currently denies diarrhea, nausea, vomiting. : No signs and/or symptoms were reported regarding the genitourinary system. EENT: No signs and/or symptoms were reported regarding the EENT system. Derm: Skin is intact, is healthy with good turgor. Musculoskeletal: Circulation, motion, and sensation intact. 17:52 Reassessment: Patient appears in no apparent distress at this time. No changes from vg1 previously documented assessment. Patient and/or family updated on plan of care and expected duration. Pain level reassessed. Patient is alert, oriented x 3, equal unlabored respirations, skin warm/dry/pink. Patient states symptoms have not improved. Vital Signs: 14:55 BP 177 / 113; Pulse 97; Resp 18; Temp 98.6; Pulse Ox 99% ; Weight 79.38 kg; Height 5 ll1 ft. 10 in. (177.80 cm); Pain 7/10; 15:33 BP 159 / 106; Pulse 95; Resp 20; Pulse Ox 100% on R/A; vg1 16:30 BP 185 / 114; Pulse 110; Resp 18; Pulse Ox 95% on R/A; vg1 17:30 BP 166 / 104; Pulse 113; Resp 18; Pulse Ox 95% on R/A; vg1 18:30 BP 160 / 93; Pulse 108; Resp 20; Pulse Ox 95% on R/A; vg1 19:00 BP 160 / 96; Pulse 105; Resp 16; Pulse Ox 96% on R/A; vg1 14:55 Body Mass Index 25.11 (79.38 kg, 177.80 cm) ll1 ED Course: 14:46 Patient arrived in ED. ds1 14:56 Triage completed. ll1 14:57 Arm band placed on Patient placed in an exam room, on a stretcher. ll1 15:04 Kurt Negrete PA is PHCP. [facility] 15:04 Yogi Nair MD is Attending Physician. [facility] 15:09 Brittany Emery, RN is Primary Nurse. vg1 15:28 Initial lab(s) drawn, by me, sent to lab. Inserted saline lock: 20 gauge in left vg1 antecubital area, using aseptic technique. Blood collected. 15:34 EKG done, by ED staff, reviewed by Kurt MONTELONGO. Patient maintains SpO2 saturation vg1 greater than 95% on room air. 15:35 Patient has correct armband on for positive identification. Placed in gown. Bed in low vg1 position. Call light in reach. Side rails up X 1. 15:35 school lunch monitor on. Pulse ox on. NIBP on. vg1 19:00 Kolton Wilkerson MD is Hospitalizing Provider. [facility] 20:40 Repeat lab(s) drawn. by me, sent to lab. jp3 20:40 Troponin (emerg Dept Use Only) Sent. jp3 21:09 No provider procedures requiring assistance completed. Patient admitted, IV remains in vg1 place. Administered Medications: 16:20 Drug: Zofran (Ondansetron) 4 mg Route: IVP; Site: left antecubital; vg1 21:21 Follow up: Response: No adverse reaction vg1 16:21 Drug: morphine 4 mg {Note: rass 0.} Route: IVP; Site: left antecubital; vg1 21:20 Follow up: Response: No adverse reaction; Pain is decreased vg1 18:45 Drug: Rocephin 1 grams Route: IV; Rate: calculated rate; Site: left antecubital; vg1 21:08 Follow up: IV Status: Completed infusion vg1 Outcome: 19:01 Decision to Hospitalize by Provider. [facility] 21:09 Admitted to Tele accompanied by tech, via wheelchair, room 215, with chart, Report vg1 called to ARUNA Peña 21:09 Condition: stable vg1 21:09 Instructed on the need for admit. 21:20 Patient left the ED. vg1 Signatures: Kurt Negrete PA PA [facility] Violetta Hernandez ds1 Earl Frank jp3 Brittany Emery, RN RN vg1 Nimco Ruiz RN RN ll1 Corrections: (The following items were deleted from the chart) 14:57 14:55 Pulse 100bpm; Resp 18bpm; Pulse Ox 99%; Temp 98.6F; 79.38 kg; Height 5 ft. 10 ll1 in.; BMI: 25.1; Pain 7/10; ll1
--- NOTE | 2020-04-20 19:01 | EDPHYS ---
Physician Documentation [facility] Name: Joel Romano Age: 64 yrs Sex: Male : 1955 Arrival Date: 04/20/2020 Time: 14:46 Bed 16 Private MD: ED Physician Yogi Nair HPI: 04/20 15:06 This 64 yrs old Male presents to ER via Ambulatory with complaints of Chest jmm Pain. 15:06 The patient or guardian reports chest pain that is located primarily in the substernal jmm area. Onset: 1 week(s) ago. The pain does not radiate. The chest pain is described as tightness. Duration: The patient or guardian reports a single episode, that is still ongoing. Modifying factors: The symptoms are alleviated by nothing. the symptoms are aggravated by nothing. The patient has not experienced similar symptoms in the past. Historical: - Allergies: 14:57 eggs; ll1 14:57 preservitives; ll1 - PMHx: 14:57 GERD; Hyperlipidemia; Hypertension; ll1 - PSHx: 14:57 None; ll1 - Immunization history:: Flu vaccine is up to date. - Social history:: Smoking status: Patient denies any tobacco usage or history of. ROS: 15:06 Constitutional: Negative for fever, chills, and weight loss. jmm 15:06 Cardiovascular: Positive for chest pain. 15:06 Respiratory: Positive for Negative for shortness of breath. 15:06 All other systems are negative. Exam: 15:06 Constitutional: This is a well developed, well nourished patient who is awake, alert, jmm and in no acute distress. Head/Face: atraumatic. Eyes: EOMI, no conjunctival erythema appreciated ENT: Moist Mucus Membranes Neck: Trachea midline, Supple Chest/axilla: Normal chest wall appearance and motion. Cardiovascular: Regular rate and rhythm. No edema appreciated Respiratory: Normal respirations, no respiratory distress appreciated Abdomen/GI: Non distended, soft Back: Normal ROM Skin: General appearance color normal MS/ Extremity: Moves all extremities, no obvious deformities appreciated, no edema noted to the lower extremities Neuro: Awake and alert, normal gait Psych: Behavior is normal, Mood is normal, Patient is cooperative and pleasant Vital Signs: 14:55 BP 177 / 113; Pulse 97; Resp 18; Temp 98.6; Pulse Ox 99% ; Weight 79.38 kg; Height 5 ll1 ft. 10 in. (177.80 cm); Pain 7/10; 15:33 BP 159 / 106; Pulse 95; Resp 20; Pulse Ox 100% on R/A; vg1 16:30 BP 185 / 114; Pulse 110; Resp 18; Pulse Ox 95% on R/A; vg1 17:30 BP 166 / 104; Pulse 113; Resp 18; Pulse Ox 95% on R/A; vg1 18:30 BP 160 / 93; Pulse 108; Resp 20; Pulse Ox 95% on R/A; vg1 19:00 BP 160 / 96; Pulse 105; Resp 16; Pulse Ox 96% on R/A; vg1 14:55 Body Mass Index 25.11 (79.38 kg, 177.80 cm) ll1 MDM: 15:39 Patient medically screened. [facility] 18:56 Data reviewed: vital signs, nurses notes. Counseling: I had a detailed discussion with [facility] the patient and/or guardian regarding: the historical points, exam findings, and any diagnostic results supporting the discharge/admit diagnosis, lab results, the need for further work-up and treatment in the hospital. 18:56 ED course: I discussed the patient with Dr. Wilkerson whom accepted the patient for [facility] admission. . 04/20 15:06 Order name: Basic Metabolic Panel [facility] 04/20 15:06 Order name: CBC with Diff [facility] 04/20 15:06 Order name: LFT's [facility] 04/20 15:06 Order name: Magnesium [facility] 04/20 15:06 Order name: NT PRO-BNP [facility] 04/20 15:06 Order name: PT-INR [facility] 04/20 15:06 Order name: Troponin (emerg Dept Use Only) [facility] 04/20 15:53 Order name: Protime (+INR); Complete Time: 18:41 [facility] 04/20 15:55 Order name: CBC with Automated Diff; Complete Time: 16:05 [facility] 04/20 16:14 Order name: Basic Metabolic Panel; Complete Time: 16:41 [facility] 04/20 16:14 Order name: Liver (Hepatic) Function; Complete Time: 16:41 [facility] 04/20 16:14 Order name: Troponin (Emerg Dept Use Only); Complete Time: 16:41 [facility] 04/20 16:14 Order name: NT PRO-BNP; Complete Time: 16:41 [facility] 04/20 16:14 Order name: Magnesium; Complete Time: 16:41 [facility] 04/20 15:06 Order name: XRAY Chest (1 view) [facility] 04/20 15:06 Order name: EKG; Complete Time: 15:07 [facility] 04/20 15:06 Order name: Cardiac monitoring; Complete Time: 15:18 [facility] 04/20 15:06 Order name: EKG - Nurse/Tech; Complete Time: 15:18 [facility] 04/20 15:06 Order name: IV Saline Lock; Complete Time: 15:30 [facility] 04/20 16:38 Order name: RAD; Complete Time: 16:41 [facility] 04/20 17:31 Order name: D-Dimer [facility] 04/20 17:50 Order name: CT Chest For PE Angio [facility] 04/20 18:29 Order name: D-Dimer; Complete Time: 18:41 [facility] 04/20 18:41 Order name: CT; Complete Time: 18:41 [facility] 04/20 19:21 Order name: COVID-19 : Document "Date of Symptom Onset" if Symptomatic. [facility] 04/20 19:56 Order name: CORONAVIRUS [facility] 04/20 20:41 Order name: SARS-COV-2 RT PCR; Complete Time: 14:38 [facility] 04/20 15:06 Order name: Labs collected and sent; Complete Time: 15:30 [facility] 04/20 15:06 Order name: O2 Per Protocol; Complete Time: 15:18 [facility] 04/20 15:06 Order name: O2 Sat Monitoring; Complete Time: 15:19 [facility] Administered Medications: 16:20 Drug: Zofran (Ondansetron) 4 mg Route: IVP; Site: left antecubital; vg1 21:21 Follow up: Response: No adverse reaction vg1 16:21 Drug: morphine 4 mg {Note: rass 0.} Route: IVP; Site: left antecubital; vg1 21:20 Follow up: Response: No adverse reaction; Pain is decreased vg1 18:45 Drug: Rocephin 1 grams Route: IV; Rate: calculated rate; Site: left antecubital; vg1 21:08 Follow up: IV Status: Completed infusion vg1 Disposition: 04/20/20 19:01 Hospitalization ordered by Kolton Wilkerson for Observation. Preliminary diagnosis is Chest pain, unspecified. - Bed requested for Telemetry/MedSurg (observation). - Status is Observation. vg1 - Condition is Stable. - Problem is new. - Symptoms are unchanged. Addendum: 04/25/2020 19:23 Co-signature as Attending Physician, Yogi Nair MD I agree with the assessment and t w4 plan of care. Signatures: Dispatcher [employer] EDMS Kiana Almanzar, RN RN Kurt Negrete PA PA jmm Wadley, Terrence, MD MD tw4 Brittany Emery RN RN vg1 Nimco Ruiz RN RN ll1 Corrections: (The following items were deleted from the chart) 04/20 20:58 19:01 Hospitalization Ordered by Kolton Wilkerson MD for Observation. Preliminary diagnosis is Chest pain, unspecified. Bed requested for Telemetry/MedSurg (observation). Status is Observation. Condition is Stable. Problem is new. Symptoms are unchanged. [facility] 21:20 20:58 04/20/2020 19:01 Hospitalization Ordered by Kolton Wilkerson MD for Observation. vg1 Preliminary diagnosis is Chest pain, unspecified. Bed requested for Telemetry/MedSurg (observation). Status is Observation. Condition is Stable. Problem is new. Symptoms are unchanged.
[2020-04-20] MEDS ORDERED: SODIUM CHLORIDE 0.9% 10ML INJ IV PRN (19:34)
[2020-04-20] MEDS ORDERED: ACETAMINOPHEN 500 MG TAB PO PRN (19:35)
[2020-04-20] MEDS ORDERED: ALBUTEROL 2.5 MG/3 ML NEB SOL NEB PRN (19:35)
[2020-04-20] MEDS ORDERED: ONDANSETRON 4 MG/2 ML VIAL IV PRN (19:35)
[2020-04-20] MEDS ORDERED: MORPHINE 2 MG/ML SYR IV PRN (19:35)
[2020-04-20] MEDS ORDERED: HYDRALAZINE HCL 20 MG/ML VIAL IV PRN (19:38)
--- NOTE | 2020-04-20 19:47 | P.HP ---
Certification for Inpatient Patient admitted to: Observation With expected LOS: <2 Midnights Patient will require the following post-hospital care: None Practitioner: I am a practitioner with admitting privileges, knowledge of patient current condition, hospital course, and medical plan of care. Services: Services provided to patient in accordance with Admission requirements found in Title 42 Section 412.3 of the Code of Federal Regulations Patient History Date of Service: 04/20/20 Reason for admission: Chest pain History of Present Illness: 64-year-old male with past medical history of hypertension, recurrent GERD, former tobacco use, quit over 40 years ago, no previous history of coronary artery disease, admitted after presenting because of chest pain. Patient states chest pain is more substernal , described it as chest tightness. He has described chest tightness is typical of his usual acid reflux. He states no symptoms of palpitation, dizziness. . He described previous workup for COPD including PFT which he reports was relatively normal. He states his symptoms typically improved after MDI albuterol inhaler. He denies any nausea or vomiting. He describes a family history of father having coronary artery disease but from complication of prostate cancer in his 70s In the ER chest x-ray was normal EKG shows mild sinus tachycardia at 92 beats per min but no ST in insert changes. CTA of the chest shows no evidence of PE or infiltrates. Initial cardiac enzyme was negative He has been admitted for presumed rule out chest pain. In the ED his blood pressure was elevated at 174/116 on presentation Allergies egg Adverse Reaction (Verified 02/11/20 08:54) congestion wheat Adverse Reaction (Verified 02/11/20 08:54) congestion Home Medications: Ezetimibe [Zetia*] 1 tab PO BEDTIME 06/07/18 Losartan Potassium [Cozaar*] 100 mg PO BEDTIME 06/07/18 Albuterol Sulfate [Proair Hfa] 1 puff IH PRN PRN 02/11/20 Fexofenadine HCl [Mariza Allergy] 60 mg PO DAILY 02/11/20 - Past Medical/Surgical History Diabetic: No -: htn -: high cholesterol -: GERD Past Surgical History: Reviewed- Non-Contributory - Family History Father -: Cancer, Liver disease Notes: pacreatic CA Mother -: Diabetes Sister -: Liver disease Brother -: Heart disease - Social History Smoking Status: Former smoker Smoking therapy provided: No Alcohol use: Yes CD- Drugs: No Caffeine use: No Place of Residence: Home Review of Systems 10-point ROS is otherwise unremarkable Physical Examination - Physical Exam General: Alert, In no apparent distress, Oriented x3, Cooperative HEENT: Atraumatic, Normocephalic, PERRLA Neck: Supple, 2+ carotid pulse no bruit, JVD not distended Respiratory: Normal air movement, Expiratory wheezes (moderate) Cardiovascular: No edema, Normal pulses, Regular rate/rhythm, Normal S1 S2 Capillary refill: <2 Seconds Gastrointestinal: Normal bowel sounds, Non-distended, Tenderness (epigastric area) Musculoskeletal: No clubbing, No swelling Integumentary: No rashes, No breakdown Neurological: Normal gait, Normal speech, Normal strength at 5/5 x4 extr, Normal tone, Cranial nerves 3-12 intact - Studies Laboratory Data (last 24 hrs) 04/20/20 15:28: PT 11.6, INR 1.01 04/20/20 15:28: WBC 14.70 H, Hgb 14.4, Hct 43.0, Plt Count 312 04/20/20 15:28: Sodium 132 L, Potassium 3.9, BUN 11, Creatinine 0.87, Glucose 93, Magnesium 1.8 D, Total Bilirubin 0.6, AST 21, ALT 30, Alkaline Phosphatase 61 Imagings Data: CT chest-FINDINGS: Suboptimal opacification of the pulmonary arteries. In addition respiratory motion artifact limits evaluation the peripheral pulmonary arteries. No gross central pulmonary embolism seen A thoracic aortic aneurysm is not noted. A pleural effusion is not seen. A pericardial effusion is not seen. A lung consolidation is not present. Fatty liver IMPRESSION: No gross central pulmonary embolism seen Assessment and Plan - Problems (Diagnosis) (1) Hypertensive urgency Current Visit: Yes Status: Acute (2) Gastric reflux syndrome Current Visit: Yes Status: Acute (3) Reactive airway disease with acute exacerbation Current Visit: Yes Status: Acute (4) Chest pain Current Visit: No Status: Acute - Plan #Chest pain-likely due to gastritis Rule out acute coronary syndrome. Serial set of cardiac enzymes. Obtain lipid panel Continue losartan/Lovenox/statin #GERD-with reflux symptoms -will start IV Protonix b.i.d. -may need EGD as outpatient - advice to do PPI daily at discharge #Hypertension urgency-continue losartan We add amlodipine IV hydralazine p.r.n. #Reactive airway disease with intermittent wheezing-start IV Solu-Medrol -duo nebs Q 6 #DVT prophylaxis-subcutaneous Lovenox #Advanced directives-full code #Disposition-possible hospital stay for less than 24 hr Discharge Plan: Home - Advance Directives Does patient have a Living Will: No Does patient have a Durable POA for Healthcare: No Physician Review: Patient Assessed, Agree with Above Assessment and Plan Time Spent Managing Pts Care (In Minutes): 65
[2020-04-20] MEDS ORDERED: LOSARTAN POTASSIUM 50 MG TABLET PO SCH (21:00)
[2020-04-20] MEDS ORDERED: EZETIMIBE 10 MG TAB PO SCH (21:00)
[2020-04-20] MEDS: ALBUTEROL 2.5 MG/3 ML NEB SOL NEB SCH (21:40)
[2020-04-20] MEDS: IPRATROPIUM BROM 0.5MG/2.5ML NEB SCH (21:40)
[2020-04-20] MEDS: PANTOPRAZOLE 40 MG INJ IVP SCH (22:08)
[2020-04-20] MEDS: AMLODIPINE 5 MG TAB PO SCH (22:09)
[2020-04-20] MEDS: METHYLPREDNISOLONE 40 MG INJ IV SCH (22:10)
[2020-04-20] MEDS: NA CHLORIDE 0.9% 1,000 ML IV SCH (22:13)
[2020-04-20 22:41] VITALS: BMI 25.7
[2020-04-21] MEDS: METHYLPREDNISOLONE 40 MG INJ IV SCH ×2 (01:00→09:22)
[2020-04-21] MEDS: ALBUTEROL 2.5 MG/3 ML NEB SOL NEB SCH ×2 (01:40→07:52)
[2020-04-21] MEDS: IPRATROPIUM BROM 0.5MG/2.5ML NEB SCH ×3 (01:40→14:30)
[2020-04-21 04:54] LABS: Albumin 3.9 g/dL (3.4-5.0); Bilirubin Total 1.2 mg/dL (0.2-1.0); Potassium 4.2 mmol/L (3.5-5.1); Protein, Total 7.6 g/dL (6.4-8.2)
[2020-04-21] MEDS: NA CHLORIDE 0.9% 1,000 ML IV SCH (06:33)
--- NOTE | 2020-04-21 08:35 | P.DS ---
Admission Date: 04/20/20 Discharge Date: 04/21/20 Primary Care Provider: Dr. Richter Disposition: ROUTINE DISCHARGE Discharge Condition: GOOD Reason for Admission: Chest pain Consultations: none Procedures: COVID: Negative CT Scan: FINDINGS: Suboptimal opacification of the pulmonary arteries. In addition respiratory motion artifact limits evaluation the peripheral pulmonary arteries. No gross central pulmonary embolism seen A thoracic aortic aneurysm is not noted. A pleural effusion is not seen. A pericardial effusion is not seen. A lung consolidation is not present. Fatty liver IMPRESSION: No gross central pulmonary embolism seen CXR: COMPARISON: 2019 FINDINGS: The lungs appear clear of acute infiltrate. The heart is normal size IMPRESSION: No acute abnormalities displayed Medical Problem List: Chest pain atypical likely GERD related Hypertension uncontrolled Hyperlipidemia COPD Allergic rhinitis Hyperglycemia with pre diabetes CT scan showing a fatty liver Brief History of Present Illness: 64-year-old male with history of hypertension, hyperlipidemia, former tobacco use and COPD. Patient presented with chest pain. Patient reports chest pain mainly to the epigastric region. Radiated to the upper abdomen. Patient was admitted for further evaluation and treatment. Patient reports history of GERD. Patient had not been taking his anti reflux medication. Initial CT scan unremarkable. Chest x-ray unremarkable. Patient was admitted for further evaluation and treatment. Blood pressures were elevated upon admission. Hospital Course: Patient presented with chest pain. Chest pain was atypical to the epigastric region. Patient with history of GERD. Patient ran out of medication. So far cardiac enzymes unremarkable. CT chest unremarkable. At discharge patient without significant pain. At discharge patient will continue with Protonix 40 mg daily. Recommend GI follow up as an outpatient. Patient would benefit with EGD as an outpatient to further evaluate. Would also recommend follow up with cardiology as an outpatient for further evaluation including echocardiogram and cardiac stress test due to multiple risk factors. Patient with hypertension. Blood pressure on controlled. Additional medication was required. At discharge patient will continue with Norvasc 5 mg daily and losartan 100 mg daily. Patient may also continue with aspirin 81 mg daily. Recommend to maintain blood pressure less than 130/80. If blood pressure remains above 140/90 then blood pressure medication may need to be further adjusted. This can be done with the help of his PCP. Patient with hyperlipidemia. LDL 104. At discharge patient will continue with Lipitor 10 mg daily and Zetia daily as prescribed. Recommend follow up with PCP to further monitor and adjust. Patient with history of COPD. Patient takes Symbicort. Patient will continue with this at discharge. Patient was given IV Solu-Medrol during his stay. Will provide pro air 2 puffs 3 times a day as needed for shortness of breath. Will send home with Prednisone 10 mg one pill twice daily for 7 days then one pill daily for 7 days. Patient with history of tobacco use. Patient no longer smokes. This can be further monitored and evaluated by pulmonology as an outpatient. Patient with allergic rhinitis. At discharge patient will continue with Mariza as directed. Patient with hyperglycemia. Hemoglobin A1c 5.6. Patient with pre diabetes. Education on diabetes provided. Recommend to recheck hemoglobin A1c in 3-6 months to monitor his progress. This can be further monitored and addressed by PCP. CT scan revealed fatty liver. Education on fatty liver provided. Vital Signs/Physical Exam: Temp Pulse Resp BP Pulse Ox 96.5 F L 78 18 159/79 H 98 04/21/20 04:00 04/21/20 04:00 04/21/20 04:00 04/21/20 04:00 04/21/20 04:00 General: Alert, In no apparent distress, Oriented x3, Cooperative HEENT: Atraumatic Neck: Supple Respiratory: Clear to auscultation bilaterally, Normal air movement Cardiovascular: Normal pulses, Regular rate/rhythm Gastrointestinal: Normal bowel sounds, Soft and benign, Non-distended, No tenderness, No masses, No rebound, No guarding Musculoskeletal: No erythema, No tenderness, No warmth Neurological: Normal speech, Normal strength at 5/5 x4 extr, Normal tone, Normal affect Laboratory Data at Discharge: WBC 14.70 K/uL (4.3-10.9) H 04/20/20 15:28 Hgb 14.4 g/dL (13.6-17.9) 04/20/20 15:28 Hct 43.0 % (39.6-49.0) 04/20/20 15:28 Plt Count 312 K/uL (152-406) 04/20/20 15:28 PT 11.6 SECONDS (9.5-12.5) 04/20/20 15:28 INR 1.01 04/20/20 15: Sodium 133 mmol/L (136-145) L 04/21/20 04:12 Potassium 4.2 mmol/L (3.5-5.1) 04/21/20 04:12 BUN 10 mg/dL (7-18) 04/21/20 04:12 Creatinine 1.06 mg/dL (0.55-1.3) 04/21/20 04:12 Glucose 194 mg/dL (74-106) H 04/21/20 04:12 Magnesium 1.8 mg/dL (1.8-2.4) D 04/20/20 15:28 Total Bilirubin 1.2 mg/dL (0.2-1.0) H 04/21/20 04:12 AST 15 U/L (15-37) 04/21/20 04:12 ALT 25 U/L (12-78) 04/21/20 04:12 Alkaline Phosphatase 52 U/L (45-117) 04/21/20 04:12 Troponin I < 0.02 ng/mL (0.0-0.045) 04/21/20 04:12 Triglycerides 43 mg/dL (<150) 04/21/20 04:12 Cholesterol 211 mg/dL (<200) H 04/21/20 04:12 HDL Cholesterol 98 mg/dL (40-60) H 04/21/20 04:12 Cholesterol/HDL Ratio 2.15 04/21/20 04:12 Home Medications: Ezetimibe [Zetia*] 1 tab PO BEDTIME 06/07/18 Losartan Potassium [Cozaar*] 100 mg PO BEDTIME 06/07/18 Fexofenadine HCl [Mariza Allergy] 60 mg PO DAILY 02/11/20 Albuterol Sulfate [Proair Hfa] 2 puff IH TID PRN #1 hfa.aer.ad 04/21/20 Amlodipine Besylate [Norvasc] 5 mg PO DAILY #30 tablet 04/21/20 Aspirin [Aspirin EC 81 MG] 81 mg PO DAILY #90 tablet. 04/21/20 Atorvastatin Calcium 1 tab PO DAILY 04/21/20 Budesonide/Formoterol Fumarate [Symbicort 160-4.5 Mcg Inhaler] 2 puff IH BID #1 hfa.aer.ad 04/21/20 Pantoprazole [Protonix Tab] 40 mg PO DAILY #30 tab 04/21/20 predniSONE [Deltasone*] 10 mg PO SEECOM #21 tab 02/15/21 New Medications: Aspirin [Aspirin EC 81 MG] 81 mg PO DAILY #90 tablet. predniSONE [Deltasone*] 10 mg PO SEECOM #21 tab Amlodipine Besylate [Norvasc] 5 mg PO DAILY #30 tablet Albuterol Sulfate [Proair Hfa] 2 puff IH TID PRN #1 hfa.aer.ad PRN Reason: Shortness Of Breath Pantoprazole [Protonix Tab] 40 mg PO DAILY #30 tab Budesonide/Formoterol Fumarate [Symbicort 160-4.5 Mcg Inhaler] 2 puff IH BID #1 hfa.aer.ad Physician Discharge Instructions: Recommend follow up with PCP in 1 week to follow up this hospitalization. Patient presented with chest pain. Chest pain was atypical to the epigastric region. Patient with history of GERD. Patient ran out of medication. So far cardiac enzymes unremarkable. CT chest unremarkable. At discharge patient without significant pain. At discharge patient will continue with Protonix 40 mg daily. Recommend GI follow up as an outpatient. Patient would benefit with EGD as an outpatient to further evaluate. Would also recommend follow up with cardiology as an outpatient for further evaluation including echocardiogram and cardiac stress test due to multiple risk factors. Patient with hypertension. Blood pressure on controlled. Additional medication was required. At discharge patient will continue with Norvasc 5 mg daily and losartan 100 mg daily. Patient may also continue with aspirin 81 mg daily. Recommend to maintain blood pressure less than 130/80. If blood pressure remains above 140/90 then blood pressure medication may need to be further adjusted. This can be done with the help of his PCP. Patient with hyperlipidemia. LDL 104. At discharge patient will continue with Lipitor 10 mg daily and Zetia daily as prescribed. Recommend follow up with PCP to further monitor and adjust. Patient with history of COPD. Patient takes Symbicort. Patient will continue with this at discharge. Patient was given IV Solu-Medrol during his stay. Will provide pro air 2 puffs 3 times a day as needed for shortness of breath. Patient with history of tobacco use. Patient no longer smokes. This can be further monitored and evaluated by pulmonology as an outpatient. Patient was evaluate for home oxygen prior to discharge. Patient with allergic rhinitis. At discharge patient will continue with Mariza as directed. Patient with hyperglycemia. Suspect diabetes mellitus type 2. Hemoglobin A1c obtained. Education on diabetes provided. This can be further monitored and addressed by PCP. CT scan revealed fatty liver. Education on fatty liver provided. Diet: AHA Activity: Ad geraldine Followup: Rocky Richter, [Primary Care Provider] - Time spent managing pt's care (in minutes): 55
[2020-04-21] MEDS ORDERED: ASPIRIN EC 81 MG TAB PO SCH (09:00)
[2020-04-21] MEDS ORDERED: ENOXAPARIN 40 MG/0.4 ML SQ SCH (09:00)
[2020-04-21] MEDS: AMLODIPINE 5 MG TAB PO SCH (09:19)
[2020-04-21] MEDS: PANTOPRAZOLE 40 MG INJ IVP SCH (09:20)
[2020-04-21 10:01] VITALS: O2SAT 98
[2020-04-21 12:26] VITALS: BP 133/72; TEMP 97.8
--- NOTE | 2020-04-21 13:14 | EKG ---
Test Date: 2020-04-20 Test Time: 15:13:50 Generator Operator: TERRY MEASUREMENT RESULTS: Intervals: Rate: 92 WA: 188 QRSD: 96 QT: 366 QTc: 452 Anderson: P: 71 WA: 188 QRS: 76 T: 64 INTERPRETIVE STATEMENTS: Normal sinus rhythm Normal ECG Compared to ECG 02/11/2020 08:33:31 Sinus bradycardia no longer present Electronically Signed On 04-21-20 13:12:33 SCALE TECHNICIAN by Malachi Payne
[2020-04-21] MEDS ORDERED: predniSONE 10 MG TAB PO SCH (21:00)
== END 2020-04-21 15:22 | disposition home or self-care (01) ==
LOC: ER 14:44 → ERHOLD 19:36 → 2ND 21:11
PROVIDERS: ADMIT Internal Medicine; ATTEND Family Medicine
DX: R07.89 Other chest pain (principal); I10 Essential (primary) hypertension; E78.5 Hyperlipidemia, unspecified; J44.9 Chronic obstructive pulmonary disease, unspecified; J30.9 Allergic rhinitis, unspecified; R73.9 Hyperglycemia, unspecified; R73.03 Prediabetes; K76.0 Fatty (change of) liver, not elsewhere classified; J45.901 Unspecified asthma with (acute) exacerbation; K21.9 Gastro-esophageal reflux disease without esophagitis; R00.0 Tachycardia, unspecified; E78.00 Pure hypercholesterolemia, unspecified; Z20.822 Contact with and (suspected) exposure to COVID-19; Z87.891 Personal history of nicotine dependence; Z91.012 Allergy to eggs; Z83.3 Family history of diabetes mellitus; Z82.49 Family history of ischemic heart disease and other diseases of the circulatory system; Z80.42 Family history of malignant neoplasm of prostate
CPT/HCPCS: 96365; 93005; 85025; 80048; 36415; 83735; 85610; 80061; 82947 ×3; 85379; 80076; 83036; 84484 ×4; 80053; 83880; 71275; 71045; 94640; 96375; 99285; 96366; U0003; Q9967; C9113 ×2; J1650; J2270; J0696; J7030 ×2; J2405; J2920 ×2; G0378

== ENCOUNTER 2022-08-18 05:55 | Emergency (ER) | payer OTHER ==
--- OUTSIDE RECORDS SUMMARY | 2022-08-18 05:59 | XMS REPORT | Continuity of Care Document ---
:1955 Author Organization [facility] t Address [address] [place] [address] [place] [id number] Care Team Providers Name Role Phone Rocky Richter Attending Clinician Unavailable Problems Condition Condition Condition Status Onset Resolution Last Treating Co mments Source Name Details Category Date Date Treatment Clinician Date Nocturia Nocturia Problem Commo n [facility] Insomnia Insomnia Problem Commo n [facility] Hyperlipid Hyperlipid Problem C ommon emia emia [facility] Hypertensi Hypertensi Problem C ommon on on [facility] Frequency Frequency Problem Com mon of of Spirit urination urination - CH I [facility] Seasonal Allergic Problem Commo n allergic rhinitis, Spiri t rhinitis seasonal [facility] FH: Family Problem Common Diabetes history of Spir it mellitus diabetes - [facility] mellitus [facility] Hyponatrem Hyponatrem Problem C ommon ia ia [facility] [id number] [id number] Problem Common (shortness Spirit of breath) [facility] [id number] Non-season Problem Com mon al Spirit allergic - [facility] rhinitis, St unspecifie [facility] Erectile Erectile Problem Commo n dysfunctio dysfunctio Sp sage n n [facility] [id number] Tinnitus, Problem Co mmon 102 bilateral [facility] Family Family hx Problem Common history of of Spirit prostate prostate - [facility] cancer cancer [facility] [id number] GERD Problem Common without [facility] esophagiti [facility] s [facility] [id number] Chronic Problem Common obstructiv [facility] e [facility] pulmonary [facility] unspecifie [facility] type [id number] Subclinica Problem Com mon l [facility] hypothyroi - [facility] dism [facility] Allergies, Adverse Reactions, Alerts Allergy Allergy Status Severity Reaction(s) Onset Inactive Treating Comm ents Source Name Type Date Date Clinician rosuvast rosuvast Active Unknown Commo n atin atin [facility] sildenaf sildenaf Active Unknown Commo n il il [facility] Social History Social Habit Start Date Stop Date Quantity Comments Source History of Tobacco Use Co mmon [facility] Sex Assigned At Com [facility] Smoking Status Start Date Stop Date Source Never Smoker Common [facility] Medications Ordered Filled Start Stop Current Ordering Indication Dosage Frequency Signature Comments Components Source Medication Medication Date Date Medication? Clinician (SIG) Name Name Jelly Reaves No 40mg Common (Triamcinol (Triamcinol 6-10 S pirit one) one) 00:00: [facility] Jelly Reaves No 40mg Common (Triamcinol (Triamcinol 6-10 S pirit one) one) 00:00: [facility] Jelly Reaves No 40mg Common (Triamcinol (Triamcinol 6-10 S pirit one) one) 00:00: - [facility] Fluticasone Fluticasone 2020-0 Yes Rocky 1 puff Common -Salmeterol -Salmeterol 5-15 Richter Spirit 00:00: [facility] Fluticasone Fluticasone 2020-0 No 1{puff} BID Fluticason -Salmeterol -Salmeterol 5-15 e-Salmeter 250-50 250-50 00:00: ol 250-50 MCG/DOSE MCG/DOSE 00 MCG/DOSE Fluticasone Fluticasone 2020-0 No 1{puff} BID Fluticason -Salmeterol -Salmeterol 5-15 e-Salmeter 250-50 250-50 00:00: ol 250-50 MCG/DOSE MCG/DOSE 00 MCG/DOSE Fluticasone Fluticasone 2020-0 No 1{puff} BID Fluticason -Salmeterol -Salmeterol 5-15 e-Salmeter 250-50 250-50 00:00: ol 250-50 MCG/DOSE MCG/DOSE 00 MCG/DOSE Fluticasone Fluticasone 2019-0 No 1{puff} BID Fluticason -Salmeterol -Salmeterol 5-15 e-Salmeter 250-50 250-50 00:00: ol 250-50 MCG/DOSE MCG/DOSE 00 MCG/DOSE Fluticasone Fluticasone 2020-0 No 1{puff} BID Fluticason -Salmeterol -Salmeterol 5-15 e-Salmeter 250-50 250-50 00:00: ol 250-50 MCG/DOSE MCG/DOSE 00 MCG/DOSE Kenalog Kenalog 2019-0 No 40mg Common (Triamcinol (Triamcinol 1-13 S pirit one) one) 00:00: - [facility] 00 [facility] Kenalog Kenalog 2020-0 No 40mg Common (Triamcinol (Triamcinol 1-13 S pirit one) one) 00:00: - [facility] 00 [facility] Kenalog Kenalog 2020-0 No 40mg Common (Triamcinol (Triamcinol 1-13 S pirit one) one) 00:00: - [facility]I 00 [facility] Kenalog Kenalog 2020-0 No 40mg Common (Triamcinol (Triamcinol 1-13 S pirit one) one) 00:00: - [facility] 00 [facility] Aspirin Aspirin Yes Rokcy 1 tablet Com mon Richter Spirit [facility] Advair HFA Advair HFA Yes Rocky 2 puffs Common Richter Spirit [facility] Flonase Flonase Yes Rocky 1 spray in C ommon Richter each Spirit nostril [facility] Cozaar Cozaar Yes Rocky take one Commo n Richter tablet by Spirit mouth - [facility] daily [facility] Ezetimibe Ezetimibe Yes Rocky 1 tablet Common Richter [facility] Omeprazole Omeprazole Yes Rocky 1 capsule Common Richter [facility] Albuterol Albuterol Yes Rocky 3 ml as Common Sulfate Sulfate Richter needed [facility] Albuterol Albuterol Yes Rocky 2 puffs as Common Sulfate HFA Sulfate HFA Richter needed [facility] Albuterol Albuterol No 3{ml_as Albuterol Sulfate Sulfate _needed Sulfate (2.5 (2.5 } (2.5 MG/3ML) MG/3ML) MG/3ML) 0.083% 0.083% 0.083% Atorvastati Atorvastati No 1{table QD Atorvastat n Calcium n Calcium t} in Calcium 10 MG 10 MG 10 MG Albuterol Albuterol No 2{puffs QID Albuterol Sulfate HFA Sulfate HFA _as_nee Sulfate 108 (90 108 (90 ded} HFA 108 Base) Base) (90 Base) MCG/ACT MCG/ACT MCG/ACT Symbicort Symbicort No 2{puffs BID Symbicort 160-4.5 160-4.5 } 160-4.5 MCG/ACT MCG/ACT MCG/ACT amLODIPine amLODIPine No 1{table QD amLODIPine Besylate 5 Besylate 5 t} Besylate 5 MG MG MG Omeprazole Omeprazole No 1{capsu QD Omeprazole 40 MG 40 MG le} 40 MG Advair HFA Advair HFA No 2{puffs BID Advair HFA 230-21 230-21 } 230-21 MCG/ACT MCG/ACT MCG/ACT Cozaar 100 Cozaar 100 No QD Cozaar 100 MG MG MG Ezetimibe Ezetimibe No 1{table QD Ezetimibe 10 MG 10 MG t} 10 MG Prednisone Prednisone No Prednisone 20 mg 20 mg 20 mg Pantoprazol Pantoprazol No 1{table QD Pantoprazo e Sodium 40 e Sodium 40 t} le Sodium MG MG 40 MG Flonase 50 Flonase 50 No 1{spray QD Flonase 50 MCG/ACT MCG/ACT _in_eac MCG/ACT h_nostr il} Vitamin B12 Vitamin B12 No 1{table QD Vitamin 1000 MCG 1000 MCG t} B12 1000 MCG Vitamin D3 Vitamin D3 No Vitamin D3 Symbicort Symbicort No 2{puffs BID Symbicort 160-4.5 160-4.5 } 160-4.5 MCG/ACT MCG/ACT MCG/ACT Atorvastati Atorvastati No 1{table QD Atorvastat n Calcium n Calcium t} in Calcium 10 MG 10 MG 10 MG CoQ-10 CoQ-10 No CoQ-10 Cozaar 100 Cozaar 100 No QD Cozaar 100 MG MG MG amLODIPine amLODIPine No 1{table QD amLODIPine Besylate 5 Besylate 5 t} Besylate 5 MG MG MG Flonase 50 Flonase 50 No 1{spray QD Flonase 50 MCG/ACT MCG/ACT _in_eac MCG/ACT h_nostr il} Albuterol Albuterol No 2{puffs QID Albuterol Sulfate HFA Sulfate HFA _as_nee Sulfate 108 (90 108 (90 ded} HFA 108 Base) Base) (90 Base) MCG/ACT MCG/ACT MCG/ACT Prednisone Prednisone No Prednisone 20 mg 20 mg 20 mg Advair HFA Advair HFA No 2{puffs BID Advair HFA 230-21 230-21 } 230-21 MCG/ACT MCG/ACT MCG/ACT Pantoprazol Pantoprazol No 1{table QD Pantoprazo e Sodium 40 e Sodium 40 t} le Sodium MG MG 40 MG Omeprazole Omeprazole No 1{capsu QD Omeprazole 40 MG 40 MG le} 40 MG Albuterol Albuterol No 3{ml_as Albuterol Sulfate Sulfate _needed Sulfate (2.5 (2.5 } (2.5 MG/3ML) MG/3ML) MG/3ML) 0.083% 0.083% 0.083% Ezetimibe Ezetimibe No 1{table QD Ezetimibe 10 MG 10 MG t} 10 MG Pantoprazol Pantoprazol No 1{table QD Pantoprazo e Sodium 40 e Sodium 40 t} le Sodium MG MG 40 MG Aspirin 81 Aspirin 81 No 1{table QD Aspirin 81 MG MG t} MG Flonase 50 Flonase 50 No 1{spray QD Flonase 50 MCG/ACT MCG/ACT _in_eac MCG/ACT h_nostr il} Ezetimibe Ezetimibe No 1{table QD Ezetimibe 10 MG 10 MG t} 10 MG amLODIPine amLODIPine No 1{table QD amLODIPine Besylate 5 Besylate 5 t} Besylate 5 MG MG MG CoQ-10 CoQ-10 No CoQ-10 Albuterol Albuterol No 3{ml_as Albuterol Sulfate Sulfate _needed Sulfate (2.5 (2.5 } (2.5 MG/3ML) MG/3ML) MG/3ML) 0.083% 0.083% 0.083% Pantoprazol Pantoprazol No 1{table QD Pantoprazo e Sodium 40 e Sodium 40 t} le Sodium MG MG 40 MG Ezetimibe Ezetimibe No Ezetimibe 10 MG 10 MG 10 MG amLODIPine amLODIPine No amLODIPine Besylate 5 Besylate 5 Besylate 5 MG MG MG Advair HFA Advair HFA No 2{puffs BID Advair HFA 230-21 230-21 } 230-21 MCG/ACT MCG/ACT MCG/ACT Vitamin B12 Vitamin B12 No 1{table QD Vitamin 1000 MCG 1000 MCG t} B12 1000 MCG Pantoprazol Pantoprazol No 1{table QD Pantoprazo e Sodium 40 e Sodium 40 t} le Sodium MG MG 40 MG Vitamin D3 Vitamin D3 No Vitamin D3 Albuterol Albuterol No 2{puffs QID Albuterol Sulfate HFA Sulfate HFA _as_nee Sulfate 108 (90 108 (90 ded} HFA 108 Base) Base) (90 Base) MCG/ACT MCG/ACT MCG/ACT Cozaar 100 Cozaar 100 No QD Cozaar 100 MG MG MG Aspirin 81 Aspirin 81 No 1{table QD Aspirin 81 MG MG t} MG Omeprazole Omeprazole No 1{capsu QD Omeprazole 40 MG 40 MG le} 40 MG Atorvastati Atorvastati No 1{table QD Atorvastat n Calcium n Calcium t} in Calcium 10 MG 10 MG 10 MG Losartan Losartan No Losartan Potassium Potassium Potassium 100 MG 100 MG 100 MG Prednisone Prednisone No Prednisone 20 mg 20 mg 20 mg Symbicort Symbicort No 2{puffs BID Symbicort 160-4.5 160-4.5 } 160-4.5 MCG/ACT MCG/ACT MCG/ACT Flonase 50 Flonase 50 No 1{spray QD Flonase 50 MCG/ACT MCG/ACT _in_eac MCG/ACT h_nostr il} Vitamin B12 Vitamin B12 No 1{table QD Vitamin 1000 MCG 1000 MCG t} B12 1000 MCG Symbicort Symbicort No 2{puffs BID Symbicort 160-4.5 160-4.5 } 160-4.5 MCG/ACT MCG/ACT MCG/ACT Aspirin 81 Aspirin 81 No 1{table QD Aspirin 81 MG MG t} MG Omeprazole Omeprazole No 1{capsu QD Omeprazole 40 MG 40 MG le} 40 MG Losartan Losartan No Losartan Potassium Potassium Potassium 100 MG 100 MG 100 MG Albuterol Albuterol No 3{ml_as Albuterol Sulfate Sulfate _needed Sulfate (2.5 (2.5 } (2.5 MG/3ML) MG/3ML) MG/3ML) 0.083% 0.083% 0.083% Pantoprazol Pantoprazol No 1{table QD Pantoprazo e Sodium 40 e Sodium 40 t} le Sodium MG MG 40 MG Ezetimibe Ezetimibe No Ezetimibe 10 MG 10 MG 10 MG Ezetimibe Ezetimibe No 1{table QD Ezetimibe 10 MG 10 MG t} 10 MG Albuterol Albuterol No 2{puffs QID Albuterol Sulfate HFA Sulfate HFA _as_nee Sulfate 108 (90 108 (90 ded} HFA 108 Base) Base) (90 Base) MCG/ACT MCG/ACT MCG/ACT Vitamin D3 Vitamin D3 No Vitamin D3 CoQ-10 CoQ-10 No CoQ-10 amLODIPine amLODIPine No amLODIPine Besylate 5 Besylate 5 Besylate 5 MG MG MG Atorvastati Atorvastati No 1{table QD Atorvastat n Calcium n Calcium t} in Calcium 10 MG 10 MG 10 MG Advair HFA Advair HFA No 2{puffs BID Advair HFA 230-21 230-21 } 230-21 MCG/ACT MCG/ACT MCG/ACT Prednisone Prednisone No Prednisone 20 mg 20 mg 20 mg Pantoprazol Pantoprazol No 1{table QD Pantoprazo e Sodium 40 e Sodium 40 t} le Sodium MG MG 40 MG Vitamin B12 Vitamin B12 No 1{table QD Vitamin 1000 MCG 1000 MCG t} B12 1000 MCG Aspirin 81 Aspirin 81 No 1{table QD Aspirin 81 MG MG t} MG Flonase 50 Flonase 50 No 1{spray QD Flonase 50 MCG/ACT MCG/ACT _in_eac MCG/ACT h_nostr il} CoQ-10 CoQ-10 No CoQ-10 Atorvastati Atorvastati No 1{table QD Atorvastat n Calcium n Calcium t} in Calcium 10 MG 10 MG 10 MG Symbicort Symbicort No 2{puffs BID Symbicort 160-4.5 160-4.5 } 160-4.5 MCG/ACT MCG/ACT MCG/ACT Cozaar 100 Cozaar 100 No QD Cozaar 100 MG MG MG Pantoprazol Pantoprazol No 1{table QD Pantoprazo e Sodium 40 e Sodium 40 t} le Sodium MG MG 40 MG Pantoprazol Pantoprazol No 1{table QD Pantoprazo e Sodium 40 e Sodium 40 t} le Sodium MG MG 40 MG Ezetimibe Ezetimibe No 1{table QD Ezetimibe 10 MG 10 MG t} 10 MG Albuterol Albuterol No 2{puffs QID Albuterol Sulfate HFA Sulfate HFA _as_nee Sulfate 108 (90 108 (90 ded} HFA 108 Base) Base) (90 Base) MCG/ACT MCG/ACT MCG/ACT Prednisone Prednisone No Prednisone 20 mg 20 mg 20 mg Advair HFA Advair HFA No 2{puffs BID Advair HFA 230-21 230-21 } 230-21 MCG/ACT MCG/ACT MCG/ACT Omeprazole Omeprazole No 1{capsu QD Omeprazole 40 MG 40 MG le} 40 MG amLODIPine amLODIPine No 1{table QD amLODIPine Besylate 5 Besylate 5 t} Besylate 5 MG MG MG Albuterol Albuterol No 3{ml_as Albuterol Sulfate Sulfate _needed Sulfate (2.5 (2.5 } (2.5 MG/3ML) MG/3ML) MG/3ML) 0.083% 0.083% 0.083% Vitamin B12 Vitamin B12 No 1{table QD Vitamin 1000 MCG 1000 MCG t} B12 1000 MCG Aspirin 81 Aspirin 81 No 1{table QD Aspirin 81 MG MG t} MG Pantoprazol Pantoprazol No 1{table QD Pantoprazo e Sodium 40 e Sodium 40 t} le Sodium MG MG 40 MG CoQ-10 CoQ-10 No CoQ-10 Immunizations Ordered Immunization Filled Immunization Date Status Commen ts Source Name Name Flucelvax - single Flucelvax - single 2021-11-12 Completed [facility] dose syringe dose syringe 10:33:00 - [facility] Flucelvax - single Flucelvax - single 2021-11-12 Completed [facility] dose syringe dose syringe 10:33:00 - [facility] Flucelvax - single Flucelvax - single 2021-02-10 Completed [facility] dose syringe dose syringe 14:41:00 - [facility] Flucelvax - single Flucelvax - single 2021-02-10 Completed [facility] dose syringe dose syringe 14:41:00 - [facility] Flucelvax - single Flucelvax - single 2021-02-10 Completed [facility] dose syringe dose syringe 14:41:00 - [facility] Flucelvax - single Flucelvax - single 2021-02-10 Completed [facility] dose syringe dose syringe 14:41:00 - [facility] Flucelvax - single Flucelvax - single 2021-02-10 Completed [facility] dose syringe dose syringe 14:41:00 - [facility] COVID-19 Vaccine COVID-19 Vaccine 2020-05-28 Completed Co mmon Spirit (Naveen) (Naveen) 13:44:00 - [facility] COVID-19 Vaccine COVID-19 Vaccine 2020-05-28 Completed Co mmon Spirit (Naveen) (Naveen) 13:44:00 [facility] COVID-19 Vaccine COVID-19 Vaccine 2020-05-28 Completed Co mmon Spirit (Naveen) (Naveen) 13:44:00 [facility] COVID-19 Vaccine COVID-19 Vaccine 2020-05-28 Completed Co mmon Spirit (Naveen) (Naveen) 13:44:00 [facility] COVID-19 Vaccine COVID-19 Vaccine 2020-05-28 Completed Co mmon Spirit (Naveen) (Naveen) 13:44:00 [facility] Afluria single dose Afluria single dose 2020-02-18 Completed [facility] 13:32:00 [facility] Afluria single dose Afluria single dose 2020-02-18 Completed [facility] 13:32:00 - [facility] Afluria single dose Afluria single dose 2020-02-18 Completed [facility] 13:32:00 - [facility] Afluria single dose Afluria single dose 2020-02-18 Completed [facility] 13:32:00 - [facility] Afluria single dose Afluria single dose 2020-02-18 Completed [facility] 13:32:00 - [facility] Flucelvax - Flucelvax - 2018-12-25 Completed Common Spiri t multidose vial multidose vial 09:59:00 - [facility] Flucelvax - Flucelvax - 2018-12-25 Completed [facility] Spiri t multidose vial multidose vial 09:59:00 - [facility] Flucelvax - Flucelvax - 2018-12-25 Completed [facility] Spiri t multidose vial multidose vial 09:59:00 - [facility] Flucelvax - Flucelvax - 2018-12-25 Completed Common Spiri t multidose vial multidose vial 09:59:00 - [facility] Flucelvax - Flucelvax - 2018-12-25 Completed Common Spiri t multidose vial multidose vial 09:59:00 - [facility] Flucelvax - Flucelvax - 2018-12-25 Completed Common Spiri t multidose vial multidose vial 00:00:00 - [facility] Adacel (Tdap) Adacel (Tdap) 2018-07-12 Completed Common S pirit 15:04:00 - [facility] Adacel (Tdap) Adacel (Tdap) 2018-07-12 Completed Common S pirit 15:04:00 - [facility] Adacel (Tdap) Adacel (Tdap) 2018-07-12 Completed Common S pirit 15:04:00 - [facility] Adacel (Tdap) Adacel (Tdap) 2018-07-12 Completed Common S pirit 15:04:00 - [facility] Adacel (Tdap) Adacel (Tdap) 2018-07-12 Completed Common S pirit 15:04:00 - [facility] 15:03:00 - [facility] Afluria Afluria 2018-07-12 Completed [facility] 15:03:00 - [facility] Afluria Afluria 2018-07-12 Completed [facility] 15:03:00 - [facility] 15:03:00 - [facility]12 [facility] 00:00:00 - [facility] TDAP > 7 TDAP > 7 2018-07-12 Completed [facility] Years-Adacel Years-Adacel 00:00:00 - [facility] Vital Signs Vital Name Observation Time Observation Value Comments Source height 2021-11-12 10:50:00 71 [in_i] [facility] weight 2021-11-12 10:50:00 179 [lb_av] [facility] temperature 2021-11-12 10:50:00 97.6 [degF] [facility] bmi 2021-11-12 10:50:00 24.96 kg/m2 [facility] oximetry 2021-11-12 10:50:00 99 % [facility] respiratory rate 2021-11-12 10:50:00 16 /min Comm on [facility] blood pressure 2021-11-12 10:50:00 136 mm[Hg] Common [facility] - systolic [facility] blood pressure 2021-11-12 10:50:00 69 mm[Hg] Common [facility] - diastolic [facility] height 2021-08-14 09:50:00 71 [in_i] [facility] weight 2021-08-14 09:50:00 181.2 [lb_av] [facility] temperature 2021-08-14 09:50:00 97.5 [degF] Common [facility] bmi 2021-08-14 09:50:00 25.27 kg/m2 Common [facility] oximetry 2021-08-14 09:50:00 100 % Common [facility] respiratory rate 2021-08-14 09:50:00 18 /min Comm on [facility] blood pressure 2021-08-14 09:50:00 135 mm[Hg] Common [facility] - systolic [facility] blood pressure 2021-08-14 09:50:00 72 mm[Hg] Common [facility] diastolic [facility] height 2021-02-10 14:30:00 71 [in_i] [facility] weight 2021-02-10 14:30:00 178.9 [lb_av] [facility] temperature 2021-02-10 14:30:00 97.3 [degF] [facility] bmi 2021-02-10 14:30:00 24.95 kg/m2 [facility] oximetry 2021-02-10 14:30:00 99 % Common [facility] respiratory rate 2021-02-10 14:30:00 17 /min Comm on [facility] blood pressure 2021-02-10 14:30:00 128 mm[Hg] [facility] systolic [facility] blood pressure 2021-02-10 14:30:00 85 mm[Hg] Common [facility] diastolic [facility] Procedures This patient has no known procedures. Encounters Start End Encounter Admission Attending Care Care Encounter Source Date/Time Date/Time Type Type Clinicians Facility Department ID 2022-02-10 [facility] [id number] Common 09:20:01 [facility] [id number] [facility] 2021-09-17 [facility] [id number] Common 14:25:00 [place] [id number] [facility] 2021-04-01 Outpatient Richter, STLMLC STLMLC [id number] Common 13:27:44 Rocky [id number] [facility] 2021-04-01 Outpatient Richter, STLMLC STLMLC [id number] Common 12:43:53 Rocky [id number] [facility] 2021-04-01 Outpatient Richter, STLMLC STLMLC [id number] Common 12:33:03 Rocky [id number] [facility] 2021-04-01 Outpatient Richter, STLMLC STLMLC [id number] Common 12:13:11 Rocky [id number] [facility] 2021-04-01 Outpatient Richter, STLMLC STLMLC [id number] Common 12:12:20 Rocky [id number] [facility] 2021-04-01 Outpatient Richter, STLMLC STLMLC [id number] Common 12:08:00 Rocky [id number] [facility] 2021-04-01 Outpatient Richter, STLMLC STLMLC [id number] Common 11:19:27 Rocky [id number] [facility] 2021-04-01 Outpatient Richter, STLMLC STLMLC [id number] Common 11:18:34 Rocky [id number] [facility] 2021-04-01 Outpatient Richter, STLMLC STLMLC [id number] Common 11:18:09 Rocky [id number] [facility] 2021-04-01 Outpatient Richter, STLMLC STLMLC [id number] Common 11:03:20 Rocky [id number] [facility] 2021-04-01 Outpatient Richter, STLMLC STLMLC [id number] Common 11:01:56 Rocky [id number] [facility] 2021-04-01 Outpatient Richter, STLMLC STLMLC [id number] Common 10:59:52 Rocky [id number] [facility] 2022-02-11 2022-02-11 (TEL) STLMLC STLMLC [id number] Co mmon 00:00:00 00:00:00 [facility] 2021-11-12 2021-11-12 PREV VISIT STLMLC STLMLC [id number] Common 00:00:00 00:00:00 EST AGE Richard 40-64 - [facility] 2021-08-14 2021-08-14 OFFICE STLMLC STLMLC [id number] Co mmon 00:00:00 00:00:00 VISIT [facility] ESTAB PT - CHI LEVEL 4 [facility] 2021-08-06 2021-08-06 (TEL) STLMLC STLMLC [id number] Co mmon 00:00:00 00:00:00 [facility] 2021-02-10 2021-02-10 OFFICE STLMLC STLMLC [id number] Co mmon 00:00:00 00:00:00 VISIT Richard [facility] LEVEL 4 [facility] 2020-09-23 2020-09-23 Outpatient STLMLC STLMLC [id number] Common 00:00:00 00:00:00 [facility] 2020-05-28 2020-05-28 Outpatient STLMLC STLMLC [id number] Common 00:00:00 00:00:00 [facility] 2020-05-27 2020-05-27 Outpatient STLMLC STLMLC [id number] Common 00:00:00 00:00:00 [facility] 2020-04-30 2020-04-30 Outpatient STLMLC STLMLC [id number] Common 00:00:00 00:00:00 [facility] 2020-02-18 2020-02-18 Outpatient STLMLC STLMLC [id number] Common 00:00:00 00:00:00 [facility] 2020-02-15 2020-02-15 Outpatient STLMLC STLMLC [id number] Common 00:00:00 00:00:00 [facility] 2019-10-25 2019-10-25 [id number] Common 11:00:00 11:00:[address] [facility] 2019-09-12 2019-09-12 [id number] Common 13:02:00 13:02:[address] [facility] 2019-08-17 2019-08-17 [facility] [id number] Common 10:00:00 10:00:[address] [facility] 2019-07-24 2019-07-24 [facility] [id number] Common 15:08:00 15:08:[address] [facility] 2019-07-13 2019-07-13 [id number] Common 10:33:00 10:33:[address] [facility] 2019-07-09 2019-07-09 [facility] [id number] Common 08:00:00 08:00:[address] [facility] 2019-04-02 2019-04-02 [facility] [id number] Common 16:24:00 16:24:[address] [facility] 2019-04-02 2019-04-02 [facility] [id number] Common 09:45:00 09:45:[address] [facility] 2019-03-19 2019-03-19 [facility] [id number] Common 09:00:00 09:00:[address] [facility] 2018-12-25 2018-12-25 [facility] [id number] Common 10:00:00 10:00:[address] [facility] 2018-09-26 2018-09-26 [facility] [id number] Common 14:45:00 14:45:[address] [facility] 2018-07-12 2018-07-12 [facility] [id number] Common 14:45:00 14:45:[address] [facility] 2018-06-12 2018-06-12 [facility] [id number] Common 14:45:00 14:45:[address] [facility] 2018-05-08 2018-05-08 [facility] [id number] Common 09:00:00 09:00:[address] [facility] 2017-08-15 2017-08-15 [facility] [id number] Common 08:30:00 08:30:[address] [facility] 2017-06-14 2017-06-14 [facility] [id number] Common 11:00:00 11:00:[address] [facility] Results This patient has no known results.
--- NOTE | 2022-08-18 06:29 | ER ---
Nurse's Notes [facility] Name: Joel Romano Age: 67 yrs Sex: Male : 1955 Arrival Date: 08/18/2022 Time: 05:55 Bed 6 Private MD: Diagnosis: Cyst to left temporal region Presentation: 08/18 06:15 Chief complaint: Patient states: left side temporal cyst,onset 10 years ago, worse in pf1 the past 5 days. 06:15 Coronavirus screen: Vaccine status: Patient reports receiving the 1st dose of the Covid pf1 vaccine. J\T\J Client denies travel out of the [place] in the last 14 days. At this time, the client does not indicate any symptoms associated with coronavirus-19. Ebola Screen: Patient negative for fever greater than or equal to 101.5 degrees Fahrenheit, and additional compatible Ebola Virus Disease symptoms. Initial Sepsis Screen: Does the patient meet any 2 criteria? No. Patient's initial sepsis screen is negative. Does the patient have a suspected source of infection? No. Patient's initial sepsis screen is negative. Risk Assessment: Do you want to hurt yourself or someone else? Patient reports no desire to harm self or others. 06:15 Method Of Arrival: Ambulatory pf1 06:15 Acuity: LEV 5 pf1 Historical: - Allergies: 06:28 Eggs; pf1 06:28 preservitives; pf1 06:28 Wheat/glutens; pf1 - PMHx: 06:28 GERD; Hyperlipidemia; Hypertension; pf1 - PSHx: 06:28 None; pf1 - Immunization history:: Adult Immunizations up to date, Client reports receiving the Ruddy \T\ Ruddy single-dose vaccine. Last tetanus immunization: < 5 years ago Flu vaccine is not up to date. - Social history:: Smoking status: Patient denies any tobacco usage or history of. Patient uses alcohol, on a daily basis. Patient/guardian denies using street drugs. Screenin:37 [facility] ED Fall Risk Assessment (Adult) History of falling in the last 3 months, pf1 including since admission No falls in past 3 months (0 pts) Confusion or Disorientation No (0 pts) Intoxicated or Sedated No (0 pts) Impaired Gait No (0 pts) Mobility Assist Device Used No (0 pt) Altered Elimination No (0 pt) Score/Fall Risk Level 0 - 2 = Low Risk Oriented to surroundings, Maintained a safe environment, Educated pt \T\ family on fall prevention, incl call for assistance when getting out of bed, Assessed \T\ reinforced patient's understanding of fall precautions, Provided non-skid footwear, Hourly rounding (assess needs \T\ fall precautionary measures) done, Used ambulatory aids as needed (educated on \T\ assisted with), Used gait belt as appropriate. Abuse screen: Denies threats or abuse. Nutritional screening: No deficits noted. Tuberculosis screening: No symptoms or risk factors identified. Assessment: 06:15 General: Appears in no apparent distress. comfortable, well groomed, well developed, pf1 Behavior is calm, cooperative, appropriate for age, quiet. 06:15 Pain: Complains of pain in left temporal region of location of cyst Pain currently is 6 pf1 out of 10 on a pain scale. Neuro: No deficits noted. Level of Consciousness is awake, alert, obeys commands, Oriented to person, place, time, situation. Cardiovascular: No deficits noted. Capillary refill < 3 seconds Patient's skin is warm and dry. Respiratory: No deficits noted. Airway is patent Respiratory effort is even, unlabored, Respiratory pattern is regular, symmetrical. GI: No deficits noted. No signs and/or symptoms were reported involving the gastrointestinal system. : No deficits noted. No signs and/or symptoms were reported regarding the genitourinary system. EENT: No deficits noted. No signs and/or symptoms were reported regarding the EENT system. Derm: cyst to left temporal region. Musculoskeletal: No deficits noted. No signs and/or symptoms reported regarding the musculoskeletal system. Vital Signs: 06:15 BP 154 / 83; Pulse 71; Resp 18; Temp 97.4; Pulse Ox 99% on R/A; Weight 77.11 kg; Height pf1 5 ft. 10 in. ; Pain 6/10; 06:15 Body Mass Index 24.39 (77.11 kg, 177.8 cm) pf1 06:15 Pain Scale: Adult pf1 ED Course: 05:59 Patient arrived in ED. [id number] 05:59 Cristóbal Ortega MD is Attending Physician. rt 06:15 Patient has correct armband on for positive identification. Bed in low position. Call pf1 light in reach. 06:15 Arm band placed on right wrist. pf1 06:28 Triage completed. pf1 06:37 No provider procedures requiring assistance completed. Patient did not have IV access pf1 during this emergency room visit. Administered Medications: No medications were administered Medication: 06:38 VIS not applicable for this client. pf1 Outcome: 06:28 Discharge ordered by MD. rt 06:37 Discharged to home ambulatory. pf1 06:37 Condition: unchanged 06:37 Discharge instructions given to patient, Instructed on discharge instructions, follow up and referral plans. Demonstrated understanding of instructions, follow-up care. 06:38 Patient left the ED. pf1 Signatures: Bhavana Hollingsworth [email or web address] Cristóbal Ortega MD MD rt Mery Wagner, RN RN pf1
--- NOTE | 2022-08-18 06:29 | EDPHYS ---
Physician Documentation [facility] Name: Joel Romano Age: 67 yrs Sex: Male : 1955 Arrival Date: 08/18/2022 Time: 05:55 Bed 6 Private MD: ED Physician Cristóbal Ortega HPI: 08/18 06:41 This 67 yrs old Male presents to ER via Ambulatory with complaints of Cyst, rt Blurred Vision. 06:41 Patient presents to the ED with 10 years of a cyst to the skin of the left temporal rt region. Patient states that is not growing, however, states that it became mildly red. He reported he had a blurred vision, but, this did resolve when he put his glasses on. He has not seen anybody for this. He denies other acute complaints at this time. Symptoms are mild in severity, no other aggravating alleviating factors.. Historical: - Allergies: 06:28 Eggs; pf1 06:28 preservitives; pf1 06:28 Wheat/glutens; pf1 - PMHx: 06:28 GERD; Hyperlipidemia; Hypertension; pf1 - PSHx: 06:28 None; pf1 - Immunization history:: Adult Immunizations up to date, Client reports receiving the Ruddy \T\ Ruddy single-dose vaccine. Last tetanus immunization: < 5 years ago Flu vaccine is not up to date. - Social history:: Smoking status: Patient denies any tobacco usage or history of. Patient uses alcohol, on a daily basis. Patient/guardian denies using street drugs. ROS: 06:42 Constitutional: Negative for fever, chills, and weight loss, Cardiovascular: Negative rt for chest pain, palpitations, and edema, Respiratory: Negative for shortness of breath, cough, wheezing, and pleuritic chest pain, Abdomen/GI: Negative for abdominal pain, nausea, vomiting, diarrhea, and constipation, Neuro: Negative for headache, weakness, numbness, tingling, and seizure, Psych: Negative for depression, anxiety, suicide ideation, homicidal ideation, and hallucinations. 06:42 Skin: Positive for Cyst, negative for drainage. Exam: 06:42 Constitutional: This is a well developed, well nourished patient who is awake, alert, rt and in no acute distress. Head/Face: Normocephalic, atraumatic. Chest/axilla: Normal chest wall appearance and motion. Nontender with no deformity. No lesions are appreciated. Cardiovascular: Regular rate and rhythm with a normal S1 and S2. No gallops, murmurs, or rubs. Normal PMI, no JVD. No pulse deficits. Respiratory: Lungs have equal breath sounds bilaterally, clear to auscultation and percussion. No rales, rhonchi or wheezes noted. No increased work of breathing, no retractions or nasal flaring. Abdomen/GI: Soft, non-tender, with normal bowel sounds. No distension or tympany. No guarding or rebound. No evidence of tenderness throughout. 06:42 Eyes: Conjunctiva normal, pupils equally round reactive to light, extraocular muscles intact. 06:42 Skin: There is an apparent cyst without fluctuance, obvious drainage or erythema to the left parietotemporal region. Is freely mobile.. Vital Signs: 06:15 BP 154 / 83; Pulse 71; Resp 18; Temp 97.4; Pulse Ox 99% on R/A; Weight 77.11 kg; Height pf1 5 ft. 10 in. ; Pain 6/10; 06:15 Body Mass Index 24.39 (77.11 kg, 177.8 cm) pf1 06:15 Pain Scale: Adult pf1 MDM: 06:28 Patient medically screened. rt 06:43 Differential Diagnosis Epidermal cyst, basal cell carcinoma. Data reviewed: vital rt signs, nurses notes. Test considered but Not performed: CT: Chronic issue, blurred vision resolved when the patient put his glasses back on, further imaging is not indicated.. Counseling: I had a detailed discussion with the patient and/or guardian regarding: the historical points, exam findings, and any diagnostic results supporting the discharge/admit diagnosis, the need for outpatient follow up, Discussed possibly for cancer, believe the patient needs a biopsy, believe that patient be best served at a dermatology clinic. This was discussed with the patient.. Administered Medications: No medications were administered Disposition Summary: 08/18/22 06:28 Discharge Ordered Location: Home rt Problem: new rt Symptoms: are unchanged rt Condition: Stable rt Diagnosis - Cyst to left temporal region rt Followup: rt - With: Private Physician - When: 2 - 3 days - Reason: Discharge Instructions: - Discharge Summary Sheet rt - Epidermoid Cyst, [id number] rt Forms: - Medication Reconciliation Form rt - Thank You Letter rt - Antibiotic Education rt - Prescription Opioid Use rt Signatures: Cristóbal Ortega MD MD rt Mery Wagner, RN RN pf1
[2022-08-18 06:57] VITALS: BP 154/83; TEMP 97.4; O2SAT 99
== END 2022-08-18 06:38 | disposition home or self-care (01) ==
LOC: ER 05:55
DX: L72.8 Other follicular cysts of the skin and subcutaneous tissue (principal); Z91.02 Food additives allergy status; Z91.012 Allergy to eggs; Z91.018 Allergy to other foods
CPT/HCPCS: 99282

== ENCOUNTER 2022-09-23 20:34 | Inpatient (IN) | payer OTHER ==
--- OUTSIDE RECORDS SUMMARY | 2022-09-23 20:38 | XMS REPORT | Continuity of Care Document ---
:1955 Author Organization [facility] t Address [address] [place] [address] [place] [id number] Care Team Providers Name Role Phone Rocky Richter Attending Clinician Unavailable Problems Condition Condition Condition Status Onset Resolution Last Treating Co mments Source Name Details Category Date Date Treatment Clinician Date Nocturia Nocturia Problem Commo n [facility] Insomnia Insomnia Problem Commo n [facility] Hyperlipid Hyperlipid Problem C ommon emia emia [facility] Hypertensi Hypertensi Problem C ommon on on [facility] Frequency Frequency Problem Com mon of of Spirit urination urination - CH I [facility] Seasonal Allergic Problem Commo n allergic rhinitis, Spiri t rhinitis seasonal [facility] FH: Family Problem Common Diabetes history of Spir it mellitus diabetes - [facility] mellitus [facility] Hyponatrem Hyponatrem Problem C ommon ia ia [facility] [id number] SOB Problem Common (shortness Spirit of breath) [facility] [id number] Non-season Problem Com mon al Spirit allergic - [facility] Erectile Erectile Problem Commo n dysfunctio dysfunctio Sp sage n n [facility] [id number] Tinnitus, Problem Co mmon 102 bilateral [facility] Family Family hx Problem Common history of of Spirit prostate prostate - [facility] cancer cancer [facility] [id number] GERD Problem Common without Spirit esophagiti - [facility] s [facility] [id number] Chronic Problem Common obstructiv [facility] e [facility] pulmonary [facility] unspecifie Medica [facility] d [facility] Center type [id number] Subclinica Problem Com mon l [facility] hypothyroi - CHI dism [facility] Allergies, Adverse Reactions, Alerts Allergy Allergy Status Severity Reaction(s) Onset Inactive Treating Comm ents Source Name Type Date Date Clinician rosuvast rosuvast Active Unknown Commo n atin atin [facility] sildenaf sildenaf Active Unknown Commo n il il [facility] Social History Social Habit Start Date Stop Date Quantity Comments Source History of Tobacco Use Co mmon [facility] Sex Assigned At Com mon [facility] Smoking Status Start Date Stop Date Source Never Smoker Common [facility] Medications Ordered Filled Start Stop Current Ordering Indication Dosage Frequency Signature Comments Components Source Medication Medication Date Date Medication? Clinician (SIG) Name Name Jelly Reaves No 40mg Common (Triamcinol (Triamcinol 6-10 S pirit one) one) 00:00: [facility] Jelly Reaves No 40mg Common (Triamcinol (Triamcinol 6-10 S pirit one) one) 00:00: [facility] Jelly Reaves No 40mg Common (Triamcinol (Triamcinol 6-10 S pirit one) one) 00:00: [facility] Fluticasone Fluticasone 2020-0 Yes Rocky 1 puff Common -Salmeterol -Salmeterol 5-15 Richter Spirit 00:00: [facility] Fluticasone Fluticasone 2020-0 No 1{puff} BID Fluticason [...] 250-50 MCG/DOSE MCG/DOSE 00 MCG/DOSE Kenalog Kenalog 0 No 40mg Common (Triamcinol (Triamcinol 1-13 S pirit one) one) 00:00: - [facility]I 00 [facility] Kenalog Kenalog 2019-0 No 40mg Common (Triamcinol (Triamcinol 1-13 S pirit one) one) 00:00: - CHI [facility] Kenalog Kenalog 2020-0 No 40mg Common (Triamcinol (Triamcinol 1-13 S pirit one) one) 00:00: - [facility]I 00 [facility] Kenalog Kenalog 2019-0 No 40mg Common (Triamcinol (Triamcinol 1-13 S pirit one) one) 00:00: - [facility]I 00 [facility] Aspirin Aspirin Yes Rocky 1 tablet Com mon Richter [facility] Advair HFA Advair HFA Yes Rocky 2 puffs Common Richter Spirit [facility] Flonase Flonase Yes Rocky 1 spray in C ommon Richter each Spirit nostril [facility] Cozaar Cozaar Yes Rocky take one Commo n Richter tablet by Spirit mouth - CHI daily [facility] Ezetimibe Ezetimibe Yes Rocky 1 tablet Common Richter [facility] Omeprazole Omeprazole Yes Rocky 1 capsule Common Richter [facility] Albuterol Albuterol Yes Rocky 3 ml as Common Sulfate Sulfate Richter needed [facility] Albuterol Albuterol Yes Rocky 2 puffs as Common Sulfate HFA Sulfate HFA Richter needed [facility] Albuterol Albuterol No 3{ml_as Albuterol Sulfate [...] Spirit dose syringe dose syringe 10:33:00 - [facility] Flucelvax - single Flucelvax - single 2021-11-12 Completed Common Spirit dose syringe dose syringe 10:33:00 - [facility] Flucelvax - single Flucelvax - single 2021-02-10 Completed Common Spirit dose syringe dose syringe 14:41:00 - [facility] Flucelvax - single Flucelvax - single 2021-02-10 Completed Common Spirit dose syringe dose syringe 14:41:00 - [facility] Flucelvax - single Flucelvax - single 2021-02-10 Completed Common Spirit dose syringe dose syringe 14:41:00 - [facility] Flucelvax - single Flucelvax - single 2021-02-10 Completed Common Spirit dose syringe dose syringe 14:41:00 - [facility] Flucelvax - single Flucelvax - single 2021-02-10 Completed Common Spirit dose syringe dose syringe 14:41:00 - [facility] COVID-19 Vaccine COVID-19 Vaccine 2020-05-28 Completed Co mmon Spirit (Naveen) (Naveen) 13:44:00 - [facility] COVID-19 Vaccine COVID-19 Vaccine 2020-05-28 Completed Co mmon Spirit (Naveen) (Naveen) 13:44:00 [facility] COVID-19 Vaccine COVID-19 Vaccine 2020-05-28 Completed Co mmon Spirit (Naveen) (Naveen) 13:44:00 [facility] COVID-19 Vaccine COVID-19 Vaccine 2020-05-28 Completed Co mmon Spirit (Naveen) (Naveen) 13:44:00 [facility] COVID-19 Vaccine COVID-19 Vaccine 2020-05-28 Completed Co mmon Spirit (Naveen) (Naveen) 13:44:00 [facility] Afluria single dose Afluria single dose 2020-02-18 Completed Common Spirit 13:32:00 [facility] Afluria single dose Afluria single dose 2020-02-18 Completed Common Spirit 13:32:00 - [facility] Afluria single dose Afluria single dose 2020-02-18 Completed Common Spirit 13:32:00 - [facility] Afluria single dose Afluria single dose 2020-02-18 Completed Common Spirit 13:32:00 - [facility] Afluria single dose Afluria single dose 2020-02-18 Completed Common Spirit 13:32:00 - [facility] Flucelvax - Flucelvax - 2018-12-25 Completed Common Spiri t multidose vial multidose vial 09:59:00 - [facility] Flucelvax - Flucelvax - 2018-12-25 Completed Common Spiri t multidose vial multidose vial 09:59:00 - [facility] Flucelvax - Flucelvax - 2018-12-25 Completed Common Spiri t multidose vial multidose vial 09:59:00 - [facility] Flucelvax - Flucelvax - 2018-12-25 Completed Common Spiri t multidose vial multidose vial 09:59:00 - [facility] Flucelvax - Flucelvax - 2018-12-25 Completed Common Spiri t multidose vial multidose vial 09:59:00 - [facility] Flucelvax - Flucelvax - 2018-12-25 Completed Common Spiri t multidose vial multidose vial 00:00:00 - [facility] Adacel (Tdap) Adacel (Tdap) 2018-07-12 Completed Common S pirit 15:04:00 - [facility] Adacel (Tdap) Adacel (Tdap) 2018-07-12 Completed Common S pirit 15:04:00 - [facility] Adacel (Tdap) Adacel (Tdap) 2018-07-12 Completed Common S pirit 15:04:00 - [facility] Adacel (Tdap) Adacel (Tdap) 2018-07-12 Completed Common S pirit 15:04:00 - [facility] Adacel (Tdap) Adacel (Tdap) 2018-07-12 Completed Common S [facility] 15:03:00 - [facility] 2018[facility]12 Completed [facility] 15:03:00 - [facility] 2018[facility]12 Completed [facility] 15:03:00 - [facility] 2018-07-12 Completed [facility] 15:03:00 - [facility] 2018-07-12 Completed [facility] 15:03:[facility] - [facility] 2018-07-12 Completed [facility] 00:00:00 - [facility] TDAP > 7 TDAP > 7 2018-07-12 Completed Common Spirit Years-Adacel Years-Adacel 00:00:00 - [facility] Vital Signs Vital Name Observation Time Observation Value Comments Source height 2021-11-12 10:50:00 71 [in_i] [facility] weight 2021-11-12 10:50:00 179 [lb_av] [facility] temperature 2021-11-12 10:50:00 97.6 [degF] [facility] bmi 2021-11-12 10:50:00 24.96 kg/m2 [facility] oximetry 2021-11-12 10:50:00 99 % [facility] respiratory rate 2021-11-12 10:50:00 16 /min Comm on [facility] blood pressure 2021-11-12 10:50:00 136 mm[Hg] Common [facility] - systolic [facility] blood pressure 2021-11-12 10:50:00 69 mm[Hg] Common [facility] - diastolic [facility] height 2021-08-14 09:50:00 71 [in_i] [facility] weight 2021-08-14 09:50:00 181.2 [lb_av] [facility] temperature 2021-08-14 09:50:00 97.5 [degF] Common [facility] bmi 2021-08-14 09:50:00 25.27 kg/m2 Common [facility] oximetry 2021-08-14 09:50:00 100 % [facility] respiratory rate 2021-08-14 09:50:00 18 /min Comm on [facility] blood pressure 2021-08-14 09:50:00 135 mm[Hg] Common [facility] - systolic [facility] blood pressure 2021-08-14 09:50:00 72 mm[Hg] Common [facility] diastolic [facility] height 2021-02-10 14:30:00 71 [in_i] [facility] weight 2021-02-10 14:30:00 178.9 [lb_av] [facility] temperature 2021-02-10 14:30:00 97.3 [degF] [facility] bmi 2021-02-10 14:30:00 24.95 kg/m2 [facility] oximetry 2021-02-10 14:30:00 99 % [facility] respiratory rate 2021-02-10 14:30:00 17 /min Comm on [facility] blood pressure 2021-02-10 14:30:00 128 mm[Hg] Common [facility] systolic [facility] blood pressure 2021-02-10 14:30:00 85 mm[Hg] [facility] diastolic [facility] Procedures This patient has no known procedures. Encounters Start End Encounter Admission Attending Care Care Encounter Source Date/Time Date/Time Type Type Clinicians Facility Department ID 2022-09-23 [facility] [id number] Common 13:58:00 [facility] [id number] [facility] 2022-08-19 Outpatient Richter, [facility] [id number] Common 09:00:00 [facility] [id number] [facility] 2022-02-10 Outpatient Richter, STLMLC STLMLC [id number] Common 09:20:01 Rocky [id number] [facility] 2021-09-17 Outpatient Richter, STLMLC STLMLC [id number] Common 14:25:00 Rocky [id number] [facility] 2021-04-01 Outpatient Richter, STLMLC STLMLC [id number] Common 13:27:44 [place] [id number] [facility] 2021-04-01 Outpatient Richter, STLMLC STLMLC [id number] Common 12:43:53 Rocky [id number] [facility] 2021-04-01 Outpatient Richter, STLMLC STLMLC [id number] Common 12:33:03 Rocky [id number] [facility] 2021-04-01 Outpatient Richter, STLMLC STLMLC [id number] Common 12:13:11 Rocky [id number] [facility] 2021-04-01 Outpatient Richter, STLMLC STLMLC [id number] Common 12:12:20 Rocky [id number] [facility] 2021-04-01 Outpatient Richter, STLMLC STLMLC [id number] Common 12:08:00 Rocky [id number] [facility] 2021-04-01 Outpatient Richter, STLMLC STLMLC [id number] Common 11:19:27 Rocky [id number] [facility] 2021-04-01 Outpatient Richter, STLMLC STLMLC [id number] Common 11:18:34 Rocky [id number] [facility] 2021-04-01 Outpatient Richter, STLMLC STLMLC [id number] Common 11:18:09 Rocky [id number] [facility] 2021-04-01 Outpatient Richter, STLMLC STLMLC [id number] Common 11:03:20 Rocky [id number] [facility] 2021-04-01 Outpatient Richter, STLMLC STLMLC [id number] Common 11:01:56 Rocky [id number] [facility] 2021-04-01 Outpatient Richter, STLMLC STLMLC [id number] Common 10:59:52 [facility] [id number] [facility] 2022-02-11 2022-02-11 (TEL) STLMLC STLMLC [id number] Co mmon 00:00:00 00:00:00 [facility] 2021-11-12 2021-11-12 PREV VISIT STLMLC STLMLC [id number] Common 00:00:00 00:00:00 EST AGE [facility] 40-64 - CHI [facility] 2021-08-14 2021-08-14 OFFICE STLMLC STLMLC [id number] Co mmon 00:00:00 00:00:00 VISIT [facility] PT - CHI LEVEL 4 [facility] 2021-08-06 2021-08-06 (TEL) STLMLC STLMLC [id number] Co mmon 00:00:00 00:00:00 [facility] 2021-02-10 2021-02-10 OFFICE STLMLC STLMLC [id number] Co mmon 00:00:00 00:00:00 VISIT [facility] PT - CHI LEVEL 4 [facility] 2020-09-23 2020-09-23 Outpatient STLMLC STLMLC [id number] Common 00:00:00 00:00:00 [facility] 2020-05-28 2020-05-28 Outpatient STLMLC STLMLC [id number] Common 00:00:00 00:00:00 [facility] 2020-05-27 2020-05-27 Outpatient STLMLC STLMLC [id number] Common 00:00:00 00:00:00 [facility] 2020-04-30 2020-04-30 Outpatient STLMLC STLMLC [id number] Common 00:00:00 00:00:00 [facility] 2020-02-18 2020-02-18 Outpatient STLMLC STLMLC [id number] Common 00:00:00 00:00:00 [facility] 2020-02-15 2020-02-15 Outpatient STLMLC STLMLC [id number] Common 00:00:00 00:00:00 [facility] 2019-10-25 2019-10-25 [id number] Common 11:00:00 11:00:[address] [facility] 2019-09-12 2019-09-12 [facility] [id number] Common 13:02:00 13:02:[address] [facility] 2019-08-17 2019-08-17 [facility] [id number] Common 10:00:00 10:00:[address] [facility] 2019-07-24 2019-07-24 [facility] [id number] Common 15:08:00 15:08:00 [address] [facility] [address] Spir it Road [facility] 2019-07-13 2019-07-13 [facility] [id number] Common 10:33:00 10:33:[address] [facility] 2019-07-09 2019-07-09 [facility] [id number] Common 08:00:00 08:00:[address] [facility] 2019-04-02 2019-04-02 [facility] [id number] Common 16:24:00 16:24:[address] [facility] 2019-04-02 2019-04-02 [facility] [id number] Common 09:45:00 09:45:[address] [facility] 2019-03-19 2019-03-19 [facility] [id number] Common 09:00:00 09:00:[address] [facility] 2018-12-25 2018-12-25 [facility] [id number] Common 10:00:00 10:00:[address] [facility] 2018-09-26 2018-09-26 [facility] [id number] Common 14:45:00 14:45:[address] [facility] 2018-07-12 2018-07-12 [facility] [id number] Common 14:45:00 14:45:[address] [facility] 2018-06-12 2018-06-12 [facility] [id number] Common 14:45:00 14:45:[address] [facility] 2018-05-08 2018-05-08 [facility] [id number] Common 09:00:00 09:00:[address] [facility] 2017-08-15 2017-08-15 [facility] [id number] Common 08:30:00 08:30:[address] [facility] 2017-06-14 2017-06-14 [facility] [id number] Common 11:00:00 11:00:[address] [facility] Results This patient has no known results.
[2022-09-23] MEDS ORDERED: METHYLPREDNISOLONE 125 MG INJ ONE (20:54)
[2022-09-23] MEDS ORDERED: MORPHINE 4 MG/ML SYR ONE (20:55)
[2022-09-23] MEDS ORDERED: ONDANSETRON 4 MG/2 ML VIAL ONE (20:55)
[2022-09-23] MEDS ORDERED: LEVALBUTEROL 1.25 MG/3 ML NEB ONE (20:55)
[2022-09-23] MEDS ORDERED: NA CHLORIDE 0.9% 1,000 ML ONE (20:56)
[2022-09-23] MEDS ORDERED: IPRATROPIUM BROM 0.5MG/2.5ML ONE (20:56)
[2022-09-23] MEDS ORDERED: FAMOTIDINE 20 MG/2 ML VIAL IV ONE (20:56)
[2022-09-23 21:02] LABS: Absolute Lymphocytes (CBC) 3.3 K/uL (0.7-4.9); Hematocrit 41.8 % (39.6-49.0); Lymphocytes % 35.5 % (15.3-44.8); MCV 94.1 fL (80-100); MPV 7.2 fL (7.6-11.3); RBC Red Blood Cell Count 4.44 M/uL (4.33-5.43)
[2022-09-23 21:17] LABS: Albumin 4.1 g/dL (3.4-5.0); Bilirubin Direct 0.2 mg/dL (0-0.2); Bilirubin Indirect, Calculated 0.6 mg/dL (0.2-0.8); Bilirubin Total 0.8 mg/dL (0.2-1.0); Magnesium 2.1 mg/dL (1.6-2.4); Potassium 3.7 mEq/L (3.5-5.1); Protein, Total 7.7 g/dL (6.4-8.2); Troponin High Sensitivity 5.7 pg/mL (<58.9)
--- NOTE | 2022-09-23 21:23 | EDPHYS ---
Physician Documentation [facility] Name: Joel Romano Age: 67 yrs Sex: Male : 1955 Arrival Date: 09/23/2022 Time: 20:34 Bed 7 Private MD: OMAR Physician Rainer Sampson HPI: 09/23 20:39 This 67 yrs old Male presents to ER via Unassigned with complaints of chest maurisio pain days, sob. 20:39 The patient has shortness of breath at rest, with light activity. Onset: The maurisio symptoms/episode began/occurred gradually, 3 day(s) ago. Duration: The symptoms are continuous, and are steadily getting worse. The patient's shortness of breath has no apparent modifying factors. The patient or guardian reports chest pain that is located primarily in the anterior chest wall, bilaterally. Onset: 3 day(s) ago. The pain does not radiate. Associated signs and symptoms: The patient has no apparent associated signs or symptoms. Severity of symptoms: At their worst the symptoms were moderate in the emergency department the symptoms are unchanged. Associated signs and symptoms: Pertinent positives: cough, shortness of breath. The chest pain is described as a pressure, sharp. Duration: The patient or guardian reports multiple episodes, that wax and wane. Modifying factors: The symptoms are alleviated by remaining still, the symptoms are aggravated by activity, deep breath, movement. Severity of pain: At its worst the pain was moderate in the emergency department the pain is unchanged. The patient has not experienced similar symptoms in the past. Historical: - Allergies: 21:10 Eggs; kl 21:10 preservitives; kl 21:10 Wheat/glutens; kl - PMHx: 21:10 GERD; Hyperlipidemia; Hypertension; COPD; kl - PSHx: 21:10 None; kl - Immunization history:: Client reports receiving the 2nd dose of the Covid vaccine, Last tetanus immunization: up to date Pneumococcal vaccine is up to date, Flu vaccine is up to date. - Family history:: not pertinent. - Social history:: Smoking status: Patient/guardian denies using tobacco, but has a distant history of tobacco abuse. ROS: 20:39 Constitutional: Negative for fever, chills, and weight loss, Eyes: Negative for injury, maurisio pain, redness, and discharge, ENT: Negative for injury, pain, and discharge, Neck: Negative for injury, pain, and swelling, Abdomen/GI: Negative for abdominal pain, nausea, vomiting, diarrhea, and constipation, Back: Negative for injury and pain, : Negative for injury, bleeding, discharge, and swelling, MS/Extremity: Negative for injury and deformity, Skin: Negative for injury, rash, and discoloration, Neuro: Negative for headache, weakness, numbness, tingling, and seizure, Psych: Negative for depression, anxiety, suicide ideation, homicidal ideation, and hallucinations, Allergy/Immunology: Negative for hives, rash, and allergies, Endocrine: Negative for neck swelling, polydipsia, polyuria, polyphagia, and marked weight changes, Hematologic/Lymphatic: Negative for swollen nodes, abnormal bleeding, and unusual bruising. 20:39 Cardiovascular: Positive for chest pain. 20:39 Respiratory: Positive for cough, shortness of breath, at rest. Exam: 20:39 Constitutional: This is a well developed, well nourished patient who is awake, alert, maurisio and in no acute distress. Head/Face: Normocephalic, atraumatic. Eyes: Pupils equal round and reactive to light, extra-ocular motions intact. Lids and lashes normal. Conjunctiva and sclera are non-icteric and not injected. Cornea within normal limits. Periorbital areas with no swelling, redness, or edema. ENT: Nares patent. No nasal discharge, no septal abnormalities noted. Tympanic membranes are normal and external auditory canals are clear. Oropharynx with no redness, swelling, or masses, exudates, or evidence of obstruction, uvula midline. Mucous membranes moist. Neck: Trachea midline, no thyromegaly or masses palpated, and no cervical lymphadenopathy. Supple, full range of motion without nuchal rigidity, or vertebral point tenderness. No Meningismus. Chest/axilla: Normal chest wall appearance and motion. Nontender with no deformity. No lesions are appreciated. Abdomen/GI: Soft, non-tender, with normal bowel sounds. No distension or tympany. No guarding or rebound. No evidence of tenderness throughout. Back: No spinal tenderness. No costovertebral tenderness. Full range of motion. Male : Normal genitalia with no discharge or lesions. Skin: Warm, dry with normal turgor. Normal color with no rashes, no lesions, and no evidence of cellulitis. MS/ Extremity: Pulses equal, no cyanosis. Neurovascular intact. Full, normal range of motion. Neuro: Awake and alert, GCS 15, oriented to person, place, time, and situation. Cranial nerves II-XII grossly intact. Motor strength 5/5 in all extremities. Sensory grossly intact. Cerebellar exam normal. Normal gait. Psych: Awake, alert, with orientation to person, place and time. Behavior, mood, and affect are within normal limits. 20:39 Cardiovascular: Rate: normal, Rhythm: regular, Pulses: Pulses are 4+ in bilateral radial, brachial, femoral, popliteal, posterior tibial and and dorsalis pedis arteries.. Heart sounds: normal, Edema: is not appreciated, JVD: is not appreciated. 20:39 Respiratory: mild respiratory distress is noted, Respirations: labored breathing, that is mild, asymmetrical chest movement, is not seen, Breath sounds: bronchial sounds, that are mild, decreased breath sounds, that are mild, rhonchi, are not appreciated, stridor, is not appreciated, + upper airway congestion. wheezing: inspiratory expiratory Respiratory rate: 26 21:23 ECG was reviewed by the Attending Physician. [facility] 21:36 ECG was reviewed by the Attending Physician. [facility] Vital Signs: 20:30 BP 175 / 107; Pulse 105; Resp 25; Pulse Ox 90% on R/A; Weight 77.11 kg (R); Height 5 kl ft. 10 in. ; Pain 7/10; 21:06 BP 147 / 91; Pulse 66; Resp 20; Temp 98.1; Pulse Ox 100% on Nebulizer Mask; kl 22:24 BP 148 / 84; Pulse 73; Resp 20; Pulse Ox 95% on 2 lpm NC; kl 23:36 BP 142 / 78; Pulse 82; Resp 20; Temp 97.9(TE); Pulse Ox 97% on 2 lpm NC; Pain 0/10; kl 20:30 Body Mass Index 24.39 (77.11 kg, 177.8 cm) kl 20:30 Pain Scale: Adult kl 23:36 Pain Scale: Adult kl MDM: 20:36 Patient medically screened. maurisio 20:45 Differential diagnosis: Chronic Obstructive Pulmonary Disease abnormal EKG, anxiety, maurisio chest wall pain, congestive heart failure esophagitis, hiatal hernia, pancreatitis, pleurisy, pneumonia, pneumothorax, pulmonary embolus, stable angina, Myocardial Infarction pneumonia, pulmonary edema, Pulmonary Embolism reactive airway disease, Unstable Angina. Antibiotic administration: Rocephin and Zithromax given. HEART Score: History: Moderately Suspicious (1), ECG: Non specific repolarization disturbance / LBTB / PM (1), Age: > 45 and < 65 years (1), Risk Factors: > or = 3 Risk factors for atherosclerotic disease (2), [Hypercholesterolemia] [Hypertension] [+ Family HX] Troponin: < or = 1 x Normal Limit (0). The patient was given aspirin in the Emergency Department. Immunization status: Pneumococcal vaccine: Influenza vaccine: within last 5 years. Data reviewed: vital signs, nurses notes, lab test result(s), EKG, radiologic studies, CT scan, plain films. Management of patient was discussed with the following:. Management of patient was discussed with the following: Hospitalist: emir castanon. Test considered but Not performed: MRI: no mri chest. Care significantly affected by the following chronic conditions: Hypertension, Chronic Obstructive Pulmonary Disease. Counseling: I had a detailed discussion with the patient and/or guardian regarding: the historical points, exam findings, and any diagnostic results supporting the discharge/admit diagnosis, the presence of at least one elevated blood pressure reading (>120/80) during this emergency department visit, lab results, radiology results, the need for further work-up and treatment in the hospital. 09/23 20:38 Order name: Basic Metabolic Panel; Complete Time: 21:21 [facility] 09/23 20:38 Order name: CBC with Diff; Complete Time: 21:04 [facility] 09/23 20:38 Order name: LFT's; Complete Time: 21:21 [facility] 09/23 20:38 Order name: Magnesium; Complete Time: 21:21 [facility] 09/23 20:38 Order name: NT PRO-BNP; Complete Time: 21:21 [facility] 09/23 20:38 Order name: PT-INR; Complete Time: 22:13 09/23 20:38 Order name: Troponin HS; Complete Time: 21:21 [facility] 09/23 20:38 Order name: Lipase; Complete Time: 21:21 [facility] 09/23 20:38 Order name: Flu 09/23 20:38 Order name: COVID-19 SARS RT PCR 09/23 22:00 Order name: Blood Culture Adult (2) 09/23 22:00 Order name: Lactate w/ 2H reflex if indic. [facility] 09/23 20:38 Order name: XRAY Chest (1 view); Complete Time: 21:30 [facility] 09/23 20:38 Order name: CT Chest For PE Angio; Complete Time: 22:13 [facility] 09/23 20:38 Order name: EKG; Complete Time: 20:39 [facility] 09/23 20:38 Order name: Cardiac monitoring [facility] 09/23 20:38 Order name: EKG - Nurse/Tech [facility] 09/23 20:38 Order name: IV Saline Lock [facility] 09/23 20:38 Order name: Labs collected and sent [facility] 09/23 20:38 Order name: O2 Per Protocol [facility] 09/23 20:38 Order name: O2 Sat Monitoring [facility] EC:36 Rate is 101 beats/min. Rhythm is regular. QRS [place] is Normal. ND interval is normal. [facility] QRS interval is normal. QT interval is normal. No Q waves. T waves are Normal. No ST changes noted. Clinical impression: Sinus tachycardia and No evidence of ischemia. Interpreted by me. Reviewed by me. Administered Medications: 20:40 Drug: Levalbuterol Inhalation 3.75 mg Route: Inhalation; kl 20:40 Drug: Ipratropium Inhalation Aerosol 0.5 mg Route: Inhalation; kl 21:47 Follow up: Response: No adverse reaction; Marked relief of symptoms kl 20:42 Drug: NS 0.9% IV 1000 ml Route: IV; Rate: 1 bolus; Site: left forearm; kl 21:48 Follow up: IV Status: Completed infusion; IV Intake: 1000ml kl 20:42 Drug: MethylPrednisoLONE IVP 125 mg Route: IVP; Site: left forearm; kl 21:47 Follow up: Response: No adverse reaction kl 20:45 Drug: Ondansetron IVP 4 mg Route: IVP; Site: left forearm; kl 21:47 Follow up: Response: No adverse reaction; Marked relief of symptoms kl 20:50 Drug: Famotidine IVP 20 mg Route: IVP; Site: left forearm; kl 21:48 Follow up: Response: No adverse reaction kl 20:50 Drug: morphine IVP or IV 4 mg Route: IVP; Infused Over: 4 mins; Site: left forearm; kl 21:47 Follow up: Response: No adverse reaction; Marked relief of symptoms kl 21:29 Drug: Rocephin IV 1 grams Route: IV; Rate: per protocol; Site: left antecubital; kd3 21:46 Drug: Magnesium Sulfate IVPB 2 grams Route: IVPB; Infused Over: 2 hrs; Site: left kl forearm; 22:35 Drug: Zithromax IVPB 500 mg Route: IVPB; Infused Over: 1 hrs; Site: left forearm; kl Disposition Summary: 09/23/22 21:22 Hospitalization Ordered Hospitalization Status: Observation maurisio Provider: Manish Vasquez cha Location: Telemetry/MedSurg (observation) maurisio Condition: Fair maurisio Problem: new maurisio Symptoms: have improved maurisio Bed/Room Type: Standard maurisio Room Assignment: 216(09/23/22 22:18) cg Diagnosis - Chest pain on breathing maurisio - Chest pain, unspecified maurisio - COPD/ Chronic obstructive pulmonary disease with (acute) exacerbation maurisio - Essential (primary) hypertension maurisio - Other pneumonia, unspecified organism - posterior lateral lingula maurisio Forms: - Medication Reconciliation Form maurisio - SBAR form maurisio Signatures: Dispatcher [employer] EDLibra Cespedes RN RN kl Anderson, Corey, MD MD cha Attema, Lee, INSPECTOR FLOOR SUB ASSEMBLY-C INSPECTOR FLOOR SUB ASSEMBLY-Cla1 Chasity Emery RN RN cg Jessica Marie RN RN kd3 Corrections: (The following items were deleted from the chart) 21:36 21:23 Rate is 85 beats/min. Rhythm is regular. QRS [place] is Normal. ND interval is maurisio normal. QRS interval is normal. QT interval is prolonged at 492 msec. No Q waves. T waves are Normal. No ST changes noted. Clinical impression: NSR w/ Non-specific ST/T Changes and No evidence of ischemia. Interpreted by me. Reviewed by me. [facility] :18 21:22 maurisio cg
--- NOTE | 2022-09-23 21:23 | ER ---
Nurse's Notes [facility] [place] Name: Joel Romano Age: 67 yrs Sex: Male : 1955 Arrival Date: 09/23/2022 Time: 20:34 Bed 7 Private MD: Diagnosis: Chest pain on breathing;Chest pain, unspecified;COPD/ Chronic obstructive pulmonary disease with (acute) exacerbation;Essential (primary) hypertension;Other pneumonia, unspecified organism-posterior lateral lingula Presentation: 09/23 20:30 Chief complaint: Patient states: diff breathing chest pressure x 3 days worse this kl evening. Coronavirus screen: Vaccine status: Patient reports receiving the 2nd dose of the covid vaccine. Ebola Screen: Patient negative for fever greater than or equal to 101.5 degrees Fahrenheit, and additional compatible Ebola Virus Disease symptoms. Initial Sepsis Screen: Does the patient meet any 2 criteria? RR > 20 per min. HR > 90 bpm. Does the patient have a suspected source of infection? No. Patient's initial sepsis screen is negative. Risk Assessment: Do you want to hurt yourself or someone else? Patient reports no desire to harm self or others. Onset of symptoms was September 21, 2022. 20:30 Method Of Arrival: EMS: [facility] kl 20:30 Acuity: LEV 2 kl Triage Assessment: 20:30 General: Appears distressed, uncomfortable, well groomed, unkempt, Behavior is kl cooperative, anxious. Pain: Complains of pain in chest. EENT: No deficits noted. No signs and/or symptoms were reported regarding the EENT system. Neuro: No deficits noted. Cardiovascular: Rhythm is sinus tachycardia. Respiratory: Airway is patent Trachea midline Respiratory effort is labored, with nasal flaring, with retractions, Respiratory pattern is tachypnea Sputum is Breath sounds with wheezes bilaterally. the patient has moderate shortness of breath. GI: No deficits noted. No signs and/or symptoms were reported involving the gastrointestinal system. : No deficits noted. No signs and/or symptoms were reported regarding the genitourinary system. Derm: No deficits noted. No signs and/or symptoms reported regarding the dermatologic system. Musculoskeletal: No deficits noted. No signs and/or symptoms reported regarding the musculoskeletal system. Historical: - Allergies: 21:10 Eggs; kl 21:10 preservitives; kl 21:10 Wheat/glutens; kl - PMHx: 21:10 GERD; Hyperlipidemia; Hypertension; COPD; kl - PSHx: 21:10 None; kl - Immunization history:: Client reports receiving the 2nd dose of the Covid vaccine, Last tetanus immunization: up to date Pneumococcal vaccine is up to date, Flu vaccine is up to date. - Family history:: not pertinent. - Social history:: Smoking status: Patient/guardian denies using tobacco, but has a distant history of tobacco abuse. Screenin:08 [facility] ED Fall Risk Assessment (Adult) History of falling in the last 3 months, kl including since admission No falls in past 3 months (0 pts) Confusion or Disorientation No (0 pts) Intoxicated or Sedated No (0 pts) Impaired Gait No (0 pts) Mobility Assist Device Used No (0 pt) Altered Elimination No (0 pt) Score/Fall Risk Level 0 - 2 = Low Risk Oriented to surroundings, Maintained a safe environment. Abuse screen: Denies threats or abuse. Nutritional screening: No deficits noted. Tuberculosis screening: No symptoms or risk factors identified. Assessment: 21:08 Reassessment: Patient states feeling better. Patient states symptoms have improved. kl Respiratory: Airway is patent Trachea midline Respiratory effort is even, relaxed. 22:24 Reassessment: Patient appears in no apparent distress at this time. Patient and/or kl family updated on plan of care and expected duration. Pain level reassessed. Patient is alert, oriented x 3, equal unlabored respirations, skin warm/dry/pink. Patient denies pain at this time. Patient states feeling better. Patient states symptoms have improved. Vital Signs: 20:30 BP 175 / 107; Pulse 105; Resp 25; Pulse Ox 90% on R/A; Weight 77.11 kg (R); Height 5 kl ft. 10 in. ; Pain 7/10; 21:06 BP 147 / 91; Pulse 66; Resp 20; Temp 98.1; Pulse Ox 100% on Nebulizer Mask; kl 22:24 BP 148 / 84; Pulse 73; Resp 20; Pulse Ox 95% on 2 lpm NC; kl 23:36 BP 142 / 78; Pulse 82; Resp 20; Temp 97.9(TE); Pulse Ox 97% on 2 lpm NC; Pain 0/10; kl 20:30 Body Mass Index 24.39 (77.11 kg, 177.8 cm) kl 20:30 Pain Scale: Adult kl 23:36 Pain Scale: Adult ED Course: 20:35 Patient arrived in ED. la1 20:36 Rainer Sampson MD is Attending Physician. maurisio 21:04 Triage completed. kl 21:09 Patient has correct armband on for positive identification. Bed in low position. Call kl light in reach. Side rails up X2. Client placed on continuous cardiac and pulse oximetry monitoring. NIBP monitoring applied. 21:09 No provider procedures requiring assistance completed. Maintain EMS IV. Dressing kl intact. Good blood return noted. Site clean \T\ dry. Gauge \T\ site: 20 gauge left forearm. Response to oxygen therapy: symptoms improved. 21:13 Jessica Marie, ARUNA is Primary Nurse. kd3 21:21 Manish Vasquez MD is Hospitalizing Provider. maurisio 21:23 XRAY Chest (1 view) In Process Unspecified. EDMS 21:37 CT Chest For PE Angio In Process Unspecified. EDMS 22:24 Lactate w/ 2H reflex if indic. Sent. kl 22:24 Blood Culture Adult (2) Sent. kl 22:36 EKG completed in triage. Results shown to MD. kl 22:36 Patient admitted, IV remains in place. kl Administered Medications: 20:40 Drug: Levalbuterol Inhalation 3.75 mg Route: Inhalation; kl 20:40 Drug: Ipratropium Inhalation Aerosol 0.5 mg Route: Inhalation; kl 21:47 Follow up: Response: No adverse reaction; Marked relief of symptoms kl 20:42 Drug: NS 0.9% IV 1000 ml Route: IV; Rate: 1 bolus; Site: left forearm; kl 21:48 Follow up: IV Status: Completed infusion; IV Intake: 1000ml kl 20:42 Drug: MethylPrednisoLONE IVP 125 mg Route: IVP; Site: left forearm; kl 21:47 Follow up: Response: No adverse reaction kl 20:45 Drug: Ondansetron IVP 4 mg Route: IVP; Site: left forearm; kl 21:47 Follow up: Response: No adverse reaction; Marked relief of symptoms kl 20:50 Drug: Famotidine IVP 20 mg Route: IVP; Site: left forearm; kl 21:48 Follow up: Response: No adverse reaction kl 20:50 Drug: morphine IVP or IV 4 mg Route: IVP; Infused Over: 4 mins; Site: left forearm; kl 21:47 Follow up: Response: No adverse reaction; Marked relief of symptoms 21:29 Drug: Rocephin IV 1 grams Route: IV; Rate: per protocol; Site: left antecubital; kd3 21:46 Drug: Magnesium Sulfate IVPB 2 grams Route: IVPB; Infused Over: 2 hrs; Site: left kl forearm; 22:35 Drug: Zithromax IVPB 500 mg Route: IVPB; Infused Over: 1 hrs; Site: left forearm; kl Medication: 22:36 VIS not applicable for this client. Intake: 21:48 IV: 1000ml; Total: 1000ml. Outcome: 21:22 Decision to Hospitalize by Provider. maurisio 22:35 Admitted to Med/surg via wheelchair, room 216, Report called to Tatiana van 22:35 Condition: improved 22:35 Discharge instructions given to patient, family, Instructed on the need for admit, Demonstrated understanding of instructions. 23:36 Patient left the ED. Signatures: Dispatcher [employer] EDLibra Cespedes, RN Rainer Tiwari MD MD cha Attema, Lee, MANAGER PLAN-C MANAGER PLAN-Cla1 Jessica Marie, RN RN kd3
[2022-09-23] MEDS ORDERED: CEFTRIAXONE 1000 MG/VIAL ONE (21:26)
[2022-09-23 21:29] LABS: Protime INR 1.14
--- NOTE | 2022-09-23 21:29 | RAD REPORT ---
EXAM DESCRIPTION: RAD - Chest Single View - 09/23/2022 9:22 pm CLINICAL HISTORY: Dyspnea;Chest pain Chest pain. COMPARISON: Chest Single View dated 04/20/2020; Chest Pa And Lat (2 Views) dated 02/11/2020; Chest Sin gle View dated 06/06/2018; Chest Pa And Lat (2 Views) dated 04/13/2018 FINDINGS: Portable technique limits examination quality. The lungs are grossly clear. The heart is normal in size. No displaced fractures. IMPRESSION: No acute intrathoracic process suspected.
[2022-09-23] MEDS ORDERED: Magnesium Sulfate 2gm IVPB 2 G/50 ML BAG IV ONE (21:33)
--- NOTE | 2022-09-23 21:51 | RAD REPORT ---
EXAM DESCRIPTION: CT - Chest For Pe Angio - 09/23/2022 9:35 pm CLINICAL HISTORY: Chest pain. Chest pain;Dyspnea COMPARISON: Chest For Pe Angio dated 04/20/2020 TECHNIQUE: CT angiogram of the pulmonary arteries was performed with MIP. All CT scans are performed using dose optimization technique as appropriate and may include automated exposure control or mA/KV adjustment according to patient size. FINDINGS: No evidence of pulmonary thromboembolism. No acute aortic finding demonstrated. Ground-glass opacity is seen in the posteromedial in the lingula. The lungs are otherwise clear. No significant pericardial or pleural fluid. No concerning bony finding. IMPRESSION: No evidence of pulmonary thromboembolism. Ground-glass opacity posteromedial lingula may represent infection.
--- NOTE | 2022-09-23 22:34 | P.HP ---
Certification for Inpatient Patient admitted to: Inpatient With expected LOS: >2 Midnights Patient will require the following post-hospital care: None Practitioner: I am a practitioner with admitting privileges, knowledge of patient current condition, hospital course, and medical plan of care. Services: Services provided to patient in accordance with Admission requirements found in Title 42 Section 412.3 of the Code of Federal Regulations Patient History Date of Service: 09/23/22 Reason for admission: COPD exacerbation, pneumonia History of Present Illness: 67-year-old male with history of hypertension, hyperlipidemia, COPD presents to the emergency department with chief complaint of shortness of breath, wheezing. He reports his symptoms been increasing over the course of the last few days, his labs are significant for sodium 133 white blood cell count 9.3 chest x-ray is unremarkable CTA of the chest shows groundglass opacity posterior medial lingula may represent infection. SIRS criteria present including leukocytosis, tachycardia, blood cultures obtained, lactic acid obtained, patient started on antibiotics with Rocephin/Zithromax. Patient will be admitted for COPD exacerbation, pneumonia. Allergies egg Adverse Reaction (Verified 02/11/20 08:54) congestion wheat Adverse Reaction (Verified 02/11/20 08:54) congestion Home Medications: Ezetimibe [Zetia*] 1 tab PO BEDTIME 06/07/18 Losartan Potassium [Cozaar*] 100 mg PO BEDTIME 06/07/18 Fexofenadine HCl [Mariza Allergy] 60 mg PO DAILY 02/11/20 Albuterol Sulfate [Proair Hfa] 2 puff IH TID PRN #1 hfa.aer.ad 04/21/20 Amlodipine Besylate [Norvasc] 5 mg PO DAILY #30 tablet 04/21/20 Aspirin [Aspirin EC 81 MG] 81 mg PO DAILY #90 tablet.dr 04/21/20 Atorvastatin Calcium 1 tab PO DAILY 04/21/20 Budesonide/Formoterol Fumarate [Symbicort 160-4.5 Mcg Inhaler] 2 puff IH BID #1 hfa.aer.ad 04/21/20 Pantoprazole [Protonix Tab] 40 mg PO DAILY #30 tab 04/21/20 predniSONE [Deltasone*] 10 mg PO SEECOM #21 tab 04/21/20 - Past Medical/Surgical History Diabetic: No -: htn -: high cholesterol -: GERD -: COPD -: None Psychosocial/ Personal History: Patient lives at home with his - Family History Father -: Cancer, Liver disease Notes: pacreatic [place] Mother -: Diabetes Sister -: Liver disease Brother -: Heart disease - Social History Smoking Status: Never smoker Alcohol use: Yes CD- Drugs: No Caffeine use: Yes Place of Residence: Home Review of Systems 10-point ROS is otherwise unremarkable Respiratory: Shortness of Breath, Wheezing Physical Examination - Physical Exam General: Alert, In no apparent distress, Oriented x3 HEENT: Atraumatic, PERRLA, Mucous membr. moist/pink, EOMI, Sclerae nonicteric Neck: Supple, 2+ carotid pulse no bruit, No LAD, Without JVD or thyroid abnormality Respiratory: Normal air movement, Expiratory wheezes Cardiovascular: Regular rate/rhythm, Normal S1 S2 Gastrointestinal: Normal bowel sounds, No tenderness Musculoskeletal: No tenderness Integumentary: No rashes Neurological: Normal gait, Normal speech, Normal strength at 5/5 x4 extr, Normal tone, Normal affect Lymphatics: No axilla or inguinal lymphadenopathy - Studies Laboratory Data (last 24 hrs) 09/23/22 20:35: PT 12.5, INR 1.14 09/23/22 20:35: WBC 9.30, Hgb 13.7, Hct 41.8, Plt Count 353 09/23/22 20:35: Sodium 131 L, Potassium 3.7, BUN 8, Creatinine 0.89, Glucose 106, Magnesium 2.1, Total Bilirubin 0.8, AST 25, ALT 28, Alkaline Phosphatase 58, Lipase 26 Assessment and Plan - Plan Assessment: Sepsis secondary to pneumonia COPD with exacerbation Hypertension Hyperlipidemia Plan: Sepsis secondary to pneumonia Blood cultures, lactate obtained, continue antibiotics Rocephin/Zithromax. SIRS radiographs including tachypnea, tachycardia, pneumonia confirmed on CT scan. COPD with exacerbation Patient takes Symbicort but has been low so only using it periodically, also uses albuterol as needed. Continue ICS, p.o. steroids, as needed nebulizer treatments. Hypertension Hyperlipidemia Continue home medications. DVT PPX: Lovenox Code status: Full Discharge Plan: Home Plan to discharge in: 48 Hours - Advance Directives Does patient have a Living Will: No Does patient have a Durable POA for Healthcare: No - Code Status/Comfort Care Code Status Assessed: Yes (Full code) Critical Care: No Time Spent Managing Pts Care (In Minutes): 55
[2022-09-23] MEDS ORDERED: NA CHLORIDE 0.9% 100 ML ONE (22:49)
[2022-09-23] MEDS ORDERED: AZITHROMYCIN 500 MG INJ IVPB ONE (22:49)
[2022-09-23] MEDS ORDERED: ALBUTEROL 2.5 MG/3 ML NEB SOL NEB PRN (23:27)
[2022-09-23] MEDS ORDERED: NA CHLORIDE 0.9% 1,000 ML IV SCH (23:27)
[2022-09-23] MEDS ORDERED: ONDANSETRON 4 MG/2 ML VIAL IV PRN (23:27)
[2022-09-23] MEDS ORDERED: BENZONATATE 100 MG CAP PO PRN (23:27)
[2022-09-23] MEDS ORDERED: IPRATROPIUM BROM 0.5MG/2.5ML NEB PRN (23:27)
[2022-09-24 00:05] VITALS: BMI 24.7
[2022-09-24 03:53] LABS: Absolute Lymphocytes (CBC) 1.2 K/uL (0.7-4.9); Hematocrit 38.5 % (39.6-49.0); Lymphocytes % 12.8 % (15.3-44.8); MCV 93.4 fL (80-100); MPV 7.8 fL (7.6-11.3); RBC Red Blood Cell Count 4.12 M/uL (4.33-5.43)
[2022-09-24 04:10] LABS: Potassium 4.4 mEq/L (3.5-5.1); Troponin High Sensitivity 8.1 pg/mL (<58.9)
--- NOTE | 2022-09-24 08:08 | P.CNS ---
Date of Consult: 09/24/22 Reason for Consult: COPD exacerbation Chief Complaint: Shortness of breath History of Present Illness: Patient is 67 years of age well-known to me has been sick since last Tuesday complaining of worsening shortness of breath chest tightness denies any fever c hills or chest pain and up here in the emergency room. Patient uses Symbicort he is intolerant to PPIs Allergies egg Adverse Reaction (Verified 02/11/20 08:54) congestion wheat Adverse Reaction (Verified 02/11/20 08:54) congestion Home Medications: Ezetimibe [Zetia*] 20 mg PO SEECOM 06/07/18 Losartan Potassium [Cozaar*] 100 mg PO DAILY 06/07/18 Fexofenadine HCl [Mariza Allergy] 180 mg PO DAILY 02/11/20 Albuterol Sulfate [Proair Hfa] 2 puff IH TID PRN #1 hfa.aer.ad 04/21/20 Amlodipine Besylate [Norvasc] 5 mg PO DAILY #30 tablet 04/21/20 Atorvastatin Calcium 20 mg PO SEECOM 04/21/20 Budesonide/Formoterol Fumarate [Symbicort 160-4.5 Mcg Inhaler] 2 puff IH BID #1 hfa.aer.ad 04/21/20 Omeprazole [Prilosec] 40 mg PO DAILY 09/24/22 Ubidecarenone [Co Q-10] 100 mg PO DAILY 09/24/22 Vitamin B Complex [B-Complex] 1 each PO SEECOM 09/24/22 - Past Medical/Surgical History Diabetic: No -: htn -: high cholesterol -: GERD -: COPD -: None Psychosocial/ Personal History: Patient lives at home with his - Family History Father Medical History: Cancer, Liver disease Notes: pacreatic [place] Mother Medical History: Diabetes Sister Medical History: Liver disease Notes: fatty liver. cataract Brother Medical History: Heart disease - Social History Smoking Status: Former smoker Alcohol use: Yes CD- Drugs: No Caffeine use: Yes Place of Residence: Home Review of Systems 10-point ROS is otherwise unremarkable Respiratory: Shortness of Breath Physical Examination Temp Pulse Resp BP Pulse Ox 97.6 F 61 17 137/80 94 09/24/22 04:00 09/24/22 04:00 09/24/22 04:00 09/24/22 04:00 09/24/22 04:00 General: Alert, In no apparent distress, Oriented x3 HEENT: Atraumatic Neck: Supple Respiratory: Clear to auscultation bilaterally Cardiovascular: No edema, Regular rate/rhythm, Normal S1 S2 Gastrointestinal: Normal bowel sounds, Hypoactive, Non-distended Laboratory Data (last 24 hrs) 09/23/22 20:35: PT 12.5, INR 1.14 09/23/22 20:35: WBC 9.30, Hgb 13.7, Hct 41.8, Plt Count 353 09/23/22 20:35: Sodium 131 L, Potassium 3.7, BUN 8, Creatinine 0.89, Glucose 106, Magnesium 2.1, Total Bilirubin 0.8, AST 25, ALT 28, Alkaline Phosphatase 58, Lipase 26 - Problems (1) Asthma exacerbation Current Visit: Yes Status: Acute Plan: Patient is 67 years of age with a history of obstructive airways disease is never smoked has been sick for about a week complaining of worsening shortness of breath chest tightness. He does use Symbicort at home. Very nonspecific changes on the chest CT scan doubt infection his white count is normal specific changes in the left lingula plan to treat patient with p.o. antibiotics start patient on doxycycline is not at risk for resistant infection continue with prednisone DC IV fluids ambulate check room air pulse ox plan for discharge follow-up with me in 2 weeks
[2022-09-24] MEDS: predniSONE 20 MG TAB PO SCH ×2 (08:38→16:54)
[2022-09-24] MEDS: DOXYCYCLINE 100 MG CAP PO SCH ×2 (08:38→20:39)
[2022-09-24] MEDS: ENOXAPARIN 40 MG/0.4 ML SQ SCH (08:38)
[2022-09-24] MEDS: DULERA 200/5 (MOMETASONE/FORMOTEROL) INHALER IH SCH ×2 (08:38→20:40)
[2022-09-24] MEDS ORDERED: AZITHROMYCIN IV 500 MG in NA CHLORIDE 0.9% 250 ML IVPB SCH (20:00)
[2022-09-24] MEDS ORDERED: CEFTRIAXONE 1,000 MG in NA CHLORIDE 0.9% 50 ML IVPB SCH (21:00)
--- NOTE | 2022-09-24 21:18 | P.PN ---
Subjective Date of Service: 09/24/22 Chief Complaint: Shortness of breath No acute events since admission. He reports shortness of breath and cough have improved since admission. He denies any chest pain or palpitations. He is currently on 2 L nasal cannula and reports that he does not use oxygen at home. Review of Systems 10-point ROS is otherwise unremarkable Respiratory: Cough, Shortness of Breath Physical Examination - Vital Signs Temperature: 99.0 F Blood Pressure: 156/86 Pulse: 61 Respirations: 17 Pulse Ox (%): 97 - Physical Exam General: Alert, In no apparent distress, Oriented x3 HEENT: Atraumatic, Mucous membr. moist/pink, Sclerae nonicteric Neck: JVD not distended Respiratory: Diminished, Expiratory wheezes Cardiovascular: No edema, Regular rate/rhythm, Normal S1 S2, No gallops, No rubs, No murmurs Gastrointestinal: Normal bowel sounds, Soft and benign, Non-distended, No tenderness, No rebound, No guarding Musculoskeletal: No clubbing Integumentary: No rashes Neurological: Normal speech, Normal affect - Studies Laboratory Data (last 24 hrs) 09/23/22 20:35: PT 12.5, INR 1.14 09/23/22 20:35: Sodium 131 L, Potassium 3.7, BUN 8, Creatinine 0.89, Glucose 106, Magnesium 2.1, Total Bilirubin 0.8, AST 25, ALT 28, Alkaline Phosphatase 58, Lipase 26 Microbiology Data (last 24 hrs): 09/23/22 22:00 Nasopharnyx Influenza Type A Antigen Screen - Final 09/23/22 22:00 Nasopharnyx Influenza Type B Antigen Screen - Final Assessment And Plan - Plan # Acute Chronic Obstructive Pulmonary Disease Exacerbation - Evaluation thus far: - Physical exam = expiratory wheezing throughout - VBG = pending - Chest x-ray = "no acute intrathoracic process suspected." - CT chest angiogram = "no evidence of pulmonary thromboembolism. Ground- glass opacity posteromedial lingula may represent infection." - Management plan: - Consulted Pulmonology - recommendations appreciated - Steroids and bronchodilators per Pulm - Consulted Respiratory Therapy - Supplemental oxygen to maintain SpO2 > 92% - PRN anti-tussives - Assess inhaler technique one improved from COPD exacerbation # Sepsis secondary to Community Acquired Pneumonia - Evaluation thus far: - 2/4 SIRS criteria = tachycardia, tachypnea - Lactate = 1.7 - Blood cultures drawn - 30 mL/kg not given due to lactate < 4, SBP > 90 mmHg - Does not meet sepsis criteria - Procalcitonin = pending - Chest x-ray = "no acute intrathoracic process suspected." - CT chest angiogram = "no evidence of pulmonary thromboembolism. Ground- glass opacity posteromedial lingula may represent infection." - Management plan: - Consulted Pulmonology - recommendations appreciated - Continue ceftriaxone + doxycycline - Encouraged incentive spirometry # Hypertension # Hyperlipidemia - Reconcile home medications once verified Manish Vasquez M.D.
[2022-09-24] MEDS: CEFTRIAXONE 1,000 MG in NA CHLORIDE 0.9% 50 ML IVPB SCH (22:55)
[2022-09-25 00:39] LABS: Arterial Blood Carboxyhemoglob 0.8 % (0-1.5); Blood Gas Oxyhemoglobin 90.7 % (94-97); Blood O2 Saturation 92.6 % (92-98.5)
[2022-09-25] MEDS: predniSONE 20 MG TAB PO SCH (08:12)
[2022-09-25] MEDS: ENOXAPARIN 40 MG/0.4 ML SQ SCH (08:12)
[2022-09-25] MEDS: DOXYCYCLINE 100 MG CAP PO SCH (08:12)
[2022-09-25] MEDS: DULERA 200/5 (MOMETASONE/FORMOTEROL) INHALER IH SCH (08:13)
[2022-09-25] MEDS: CEFTRIAXONE 1,000 MG in NA CHLORIDE 0.9% 50 ML IVPB SCH (08:13)
[2022-09-25 08:26] VITALS: BP 151/86; TEMP 97.4
--- NOTE | 2022-09-25 08:49 | P.DS ---
Admission Date: 09/23/22 Discharge Date: 09/25/22 Disposition: ROUTINE DISCHARGE Discharge Condition: GOOD Reason for Admission: Shortness of breath Consultations: 1. Pulmonology Hospital Course: DIAGNOSES: # Acute Chronic Obstructive Pulmonary Disease Exacerbation # Sepsis secondary to Community Acquired Pneumonia # Hypertension # Hyperlipidemia HOSPITAL COURSE: Mr. Joel Romano is a pleasant 67 year old male with a past medical history significant for chronic obstructive pulmonary disease, hypertension, and hyperlipidemia who was admitted to the [facility] on 09/23/2022 for shortness of breath, cough, and wheezing. He was admitted to the Medicine service. Upon further evaluation, he was found to have an acute COPD exacerbation as well as pneumonia. His chest x-ray revealed, "no acute intrathoracic process suspected." His CT chest revealed, "no evidence of pulmonary thromboembolism. Ground-glass opacity posteromedial lingula may represent infection." Pulmonology was consulted and he was evaluated by Dr. Bradford. He was treated with bronchodilators, antibiotics, and steroids and, over the course of his hospitalization, his symptoms improved significantly. Initially, he was requiring oxygen due to dyspnea. With the mentioned treatment, he was able to be weaned off. Today, he ambulated around the nursing station, maintaining SpO2 readings of 97 %. He stated that he felt well and would like to be discharged home. On 09/25/2022, he was seen on morning rounds and deemed medically stable for discharge. He was discharged with instructions to schedule follow-up appointments with his PCP (Dr. Richter) and with Pulmonology (Dr. Bradford). He was provided prescriptions for cefdinir, doxycycline, prednisone, and b enzonatate. He was given the opportunity to ask questions and reported no further questions. Furthermore, all questions were answered to the best of my ability. A copy of this discharge summary will be sent to the above providers to facilitate continuity of care. Today, I personally spent 25 minutes on his case, of which greater than 50% of the time was spent in patient education, counseling, and coordination of care as described above. - Physical Exam General: Alert, In no apparent distress, Oriented x3 HEENT: Atraumatic, Mucous membr. moist/pink, Sclerae nonicteric Respiratory: Clear to auscultation without wheezes, rhonchi, or rales Cardiovascular: No edema, Regular rate/rhythm, No murmurs Gastrointestinal: Soft, Non-distended, No tenderness Musculoskeletal: No clubbing Integumentary: No rashes Neurological: Normal speech, Normal affect Vital Signs/Physical Exam: Temp Pulse Resp BP Pulse Ox 97.4 F 52 14 151/86 H 99 09/25/22 08:00 09/25/22 08:00 09/25/22 08:00 09/25/22 08:00 09/25/22 08:00 Laboratory Data at Discharge: WBC 9.70 thou/uL (4.3-10.9) 09/24/22 02:49 Hgb 13.0 g/dL (13.6-17.9) L 09/24/22 02:49 Hct 38.5 % (39.6-49.0) L 09/24/22 02:49 Plt Count 317 thou/uL (152-406) 09/24/22 02:49 PT 12.5 SECONDS (9.5-12.5) 09/23/22 20:35 INR 1.14 09/23/22 20:35 Sodium 133 mEq/L (136-145) L 09/25/22 02:27 Potassium 4.0 mEq/L (3.5-5.1) 09/25/22 02:27 BUN 11 mg/dL (7-18) 09/25/22 02:27 Creatinine 0.75 mg/dL (0.70-1.30) 09/25/22 02:27 Glucose 132 mg/dL (74-106) H 09/25/22 02:27 Magnesium 2.1 mg/dL (1.6-2.4) 09/23/22 20:35 Total Bilirubin 0.8 mg/dL (0.2-1.0) 09/23/22 20:35 AST 25 U/L (15-37) 09/23/22 20:35 ALT 28 U/L (16-61) 09/23/22 20:35 Alkaline Phosphatase 58 U/L (45-117) 09/23/22 20:35 Lipase 26 U/L (13-75) 09/23/22 20:35 Home Medications: Ezetimibe [Zetia*] 20 mg PO SEECOM 06/07/18 Losartan Potassium [Cozaar*] 100 mg PO DAILY 06/07/18 Fexofenadine HCl [Mariza Allergy] 180 mg PO DAILY 02/11/20 Albuterol Sulfate [Proair Hfa] 2 puff IH TID PRN #1 hfa.aer.ad 04/21/20 Amlodipine Besylate [Norvasc] 5 mg PO DAILY #30 tablet 04/21/20 Atorvastatin Calcium 20 mg PO SEECOM 04/21/20 Omeprazole [Prilosec] 40 mg PO DAILY 09/24/22 Ubidecarenone [Co Q-10] 100 mg PO DAILY 09/24/22 Vitamin B Complex [B-Complex] 1 each PO SEECOM 09/24/22 Benzonatate [Tessalon Perle*] 100 mg PO TID PRN 7 Days #20 cap 09/25/22 Budesonide/Formoterol Fumarate [Symbicort 160-4.5 Mcg Inhaler] 2 puff IH BID #1 inh 09/25/22 Cefdinir [Cefdinir*] 300 mg PO BID 7 Days #14 cap 09/25/22 Doxycycline Hyclate 100 mg PO BID 7 Days #14 cap 09/25/22 predniSONE [Prednisone*] 20 mg PO BIDWM 5 Days #10 tab 09/25/22 New Medications: Cefdinir [Cefdinir*] 300 mg PO BID 7 Days #14 cap Doxycycline Hyclate 100 mg PO BID 7 Days #14 cap predniSONE [Prednisone*] 20 mg PO BIDWM 5 Days #10 tab Budesonide/Formoterol Fumarate [Symbicort 160-4.5 Mcg Inhaler] 2 puff IH BID #1 inh Benzonatate [Tessalon Perle*] 100 mg PO TID PRN 7 Days #20 cap PRN Reason: Cough Physician Discharge Instructions: 1. Please call and schedule a follow-up appointment with your PCP (Dr. Richter) in 3-5 days 2. Please call and schedule a follow-up appointment with Pulmonology (Dr. Bradford) in 5-7 days - Please have him repeat your chest imaging in 2-3 weeks to make sure the pneumonia has fully healed Diet: [facility] Activity: Ad geraldine Followup: Mika Bradford MD [ACTIVE - CAN ADMIT] - (call for an appointment for 5-7 days) Richter,Rocky M, DO [ACTIVE - CAN ADMIT] - (call for an appointment in 3-5 days ) Time spent managing pt's care (in minutes): 25
[2022-09-25 10:11] VITALS: O2SAT 98
--- NOTE | 2022-09-28 15:09 | EKG ---
Test Date: 2022-09-23 Test Time: 20:37:53 Indian Nanny: IGNACIO MEASUREMENT RESULTS: Intervals: Rate: 101 MA: 184 QRSD: 88 QT: 362 QTc: 469 [place]: P: 75 MA: 184 QRS: 81 T: 81 INTERPRETIVE STATEMENTS: Sinus tachycardia Junctional ST depression, probably normal Borderline ECG Electronically Signed On 09-28-22 15:01:03 CDT by Alfa Muller
--- NOTE | 2022-09-28 15:09 | EKG ---
Test Date: 2022-09-23 Test Time: 20:39:24 Sales Agent: IGNACIO MEASUREMENT RESULTS: Intervals: Rate: 102 [place]: 180 QRSD: 88 QT: 354 QTc: 461 [place]: P: 77 [place]: 180 QRS: 81 T: 78 INTERPRETIVE STATEMENTS: Sinus tachycardia Otherwise normal ECG Compared to ECG 09/23/2022 20:37:53 ST (T wave) deviation no longer present Electronically Signed On 09-28-22 15:01:01 CDT by Alfa Muller
== END 2022-09-25 10:57 | disposition home or self-care (01) | DRG 871 ==
LOC: ER 20:34 → ERHOLD 22:08 → 2ND 23:07
PROVIDERS: ADMIT Internal Medicine; ATTEND Internal Medicine
DX: A41.9 Sepsis, unspecified organism (principal); J18.9 Pneumonia, unspecified organism; J44.1 Chronic obstructive pulmonary disease with (acute) exacerbation; J44.0 Chronic obstructive pulmonary disease with (acute) lower respiratory infection; J45.901 Unspecified asthma with (acute) exacerbation; K21.9 Gastro-esophageal reflux disease without esophagitis; I10 Essential (primary) hypertension; E78.00 Pure hypercholesterolemia, unspecified; Z79.82 Long term (current) use of aspirin; Z79.52 Long term (current) use of systemic steroids; Z91.012 Allergy to eggs; Z91.018 Allergy to other foods; Z79.899 Other long term (current) drug therapy
CPT/HCPCS: 36415; 71045; 71275; 80048; 80076; 82805; 83605; 83690; 83735; 83880; 84145; 84484; 85025; 85610; 87040; 87635; 87804; 93005; 94010; 99285; J0696; J1650; J2405; J2930; J3475; J3535; J7030; J7512; J7614; J7644; Q9967

== ENCOUNTER 2024-07-07 19:42 | Emergency (ER) | payer OTHER ==
--- OUTSIDE RECORDS SUMMARY | 2024-07-07 19:46 | XMS REPORT | Continuity of Care Document ---
Author Name Unknown Address [address] [facility] [place] [address] Organization [facility] [place] Address [address] [facility] [address] [place] [address] Care Team Providers Care Embedded Linux Developer Name Role Phone Rocky Richter Attending Clinician Unavailable Problems Condition Name Condition Details Condition Category Status Onset Date Resolution Date Last Treatment Date Treating Clinician Comments Source [id number] COPD exacerbati on Problem [facility] Nocturia Nocturia Problem [facility] Insomnia Insomnia Problem [facility] Hyperlipid emia Hyperlipid emia Problem [facility] Hypertensi on Hypertensi on Problem [facility] Frequency of urination Frequency of urination Problem [facility] Seasonal allergic rhinitis Allergic rhinitis, seasonal Problem [facility] FH: Diabetes mellitus Family history of diabetes mellitus Problem [facility] Hyponatrem ia Hyponatrem ia Problem [facility] [id number] SOB (shortness of breath) Problem [facility] [id number] Allergic rhinitis, unspecifie d seasonalit y, unspecifie d trigger Problem [facility] Erectile dysfunctio n Erectile dysfunctio n Problem [facility] [id number] Tinnitus, bilateral Problem [facility] Family history of prostate cancer Family hx of prostate cancer Problem [facility] [id number] GERD without esophagiti s Problem [facility] [id number] Chronic obstructiv e pulmonary disease, unspecifie d COPD type Problem [facility] [id number] Subclinica l hypothyroi dism Problem [facility] [id number] Thrombocyt openia Problem [facility] Allergies, Adverse Reactions, Alerts Allergy Name Allergy Type Status Severity Reaction(s) Onset Date Inactive Date Treating Clinician Comments Source rosuvast atin rosuvast atin Active Unknown [facility] sildenaf il sildenaf il Active Unknown [facility] Social History Social Habit Start Date Stop Date Quantity Comments Source History of Tobacco Use [facility] Sex Assigned At [facility] Smoking Status Start Date Stop Date Source Former Smoker 2024-03-16 00:00:00 2024-03-16 00:00:00 [facility] Never Smoker [facility] Medications Ordered Medication Name Filled Medication Name Start Date Stop Date Current Medication? Ordering Clinician Indication Dosage Frequency Signature (SIG) Comments Components Source Mariza Mariza 5-15 00:00: 00 No 1{puff} BID Mariza Kenalog (Triamcinol one) Kenalog (Triamcinol one) 1-13 00:00: 00 No 40mg [facility] amLODIPine Besylate 5 MG amLODIPine Besylate 5 MG No 1{table t} QD amLODIPine Besylate 5 MG Pantoprazol e Sodium 40 MG Pantoprazol e Sodium 40 MG No 1{table t} QD Pantoprazo le Sodium 40 MG Atorvastati n Calcium 20 MG Atorvastati n Calcium 20 MG No 1{table t} QD Atorvastat in Calcium 20 MG Symbicort 160-4.5 MCG/ACT Symbicort 160-4.5 MCG/ACT No 2{puffs } BID Symbicort 160-4.5 MCG/ACT Albuterol Sulfate HFA 108 (90 Base) MCG/ACT Albuterol Sulfate HFA 108 (90 Base) MCG/ACT No 2{puffs _as_nee ded} QID Albuterol Sulfate HFA 108 (90 Base) MCG/ACT CoQ-10 100 MG CoQ-10 100 MG No CoQ-10 100 MG Vitamin C 500 MG Vitamin C 500 MG No 1{table t} Vitamin C 500 MG Vitamin B Complex - Vitamin B Complex - No Vitamin B Complex - Vitamin D3 25 MCG (1000 UT) Vitamin D3 25 MCG (1000 UT) No 1{capsu le} Vitamin D3 25 MCG (1000 UT) Immunizations Ordered Immunization Name Filled Immunization Name Date Status Comments Source Flucelvax - single dose syringe Flucelvax - single dose syringe 2021-11-12 10:33:00 Completed [facility] Flucelvax - single dose syringe Flucelvax - single dose syringe 2021-11-12 10:33:00 Completed [facility] Flucelvax (ccIIV4) - SDS - 0.5mL Flucelvax (ccIIV4) - SDS - 0.5mL 2021-02-10 14:41:00 Completed [facility] Flucelvax - single dose syringe Flucelvax - single dose syringe 2021-02-10 14:41:00 Completed [facility] Flucelvax - single dose syringe Flucelvax - single dose syringe 2021-02-10 14:41:00 Completed [facility] COVID-19 Vaccine (Naveen) COVID-19 Vaccine (Naveen) 2020-05-28 13:44:00 Completed [facility] COVID-19 Vaccine (Naveen) COVID-19 Vaccine (Naveen) 2020-05-28 13:44:00 Completed [facility] COVID-19 Vaccine (Naveen) COVID-19 Vaccine (Naveen) 2020-05-28 13:44:00 Completed [facility] Afluria single dose Afluria single dose 13:32:00 Completed [facility] Afluria single dose Afluria single dose 13:32:00 Completed [facility] Afluria single dose Afluria single dose 13:32:00 Completed [facility] Flucelvax - multidose vial Flucelvax - multidose vial 2018-12-25 09:59:00 Completed [facility] Flucelvax - multidose vial Flucelvax - multidose vial 2018-12-25 09:59:00 Completed [facility] Flucelvax - multidose vial Flucelvax - multidose vial 2018-12-25 09:59:00 Completed [facility] Flucelvax - multidose vial Flucelvax - multidose vial 2018-12-25 00:00:00 Completed [facility] Adacel (Tdap) Adacel (Tdap) 2018-07-12 15:04:00 Completed [facility] Adacel (Tdap) Adacel (Tdap) 2018-07-12 15:04:00 Completed [facility] Adacel (Tdap) Adacel (Tdap) 2018-07-12 15:04:00 Completed [facility] Afluria Afluria 2018-07-12 15:03:00 Completed [facility] Afluria Afluria 2018-07-12 15:03:00 Completed [facility] Afluria Afluria 2018-07-12 15:03:00 Completed [facility] Afluria Afluria 2018-07-12 00:00:00 Completed [facility] TDAP > 7 Years-Adacel TDAP > 7 Years-Adacel 2018-07-12 00:00:00 Completed [facility] COVID-19 Vaccine (Naveen) COVID-19 Vaccine (Naveen) Unknown Completed [facility] Afluria single dose Afluria single dose Unknown Completed [facility] Flucelvax - multidose vial Flucelvax - multidose vial Unknown Completed [facility] Afluria Afluria Unknown Completed [facility] Flucelvax - single dose syringe Flucelvax - single dose syringe Unknown Completed [facility] Adacel (Tdap) Adacel (Tdap) Unknown Completed [facility] COVID-19 Vaccine (Naveen) COVID-19 Vaccine (Naveen) Unknown Completed [facility] Afluria single dose Afluria single dose Unknown Completed [facility] Flucelvax - multidose vial Flucelvax - multidose vial Unknown Completed [facility] Afluria Afluria Unknown Completed [facility] Flucelvax - single dose syringe Flucelvax - single dose syringe Unknown Completed [facility] Adacel (Tdap) Adacel (Tdap) Unknown Completed [facility] COVID-19 Vaccine (Naveen) COVID-19 Vaccine (Naveen) Unknown Completed [facility] Afluria single dose Afluria single dose Unknown Completed [facility] Flucelvax - multidose vial Flucelvax - multidose vial Unknown Completed [facility] Afluria Afluria Unknown Completed [facility] Flucelvax - single dose syringe Flucelvax - single dose syringe Unknown Completed [facility] Adacel (Tdap) Adacel (Tdap) Unknown Completed [facility] COVID-19 Vaccine (Naveen) COVID-19 Vaccine (Naveen) Unknown Completed [facility] Afluria single dose Afluria single dose Unknown Completed [facility] Flucelvax - multidose vial Flucelvax - multidose vial Unknown Completed [facility] Afluria Afluria Unknown Completed [facility] Flucelvax - single dose syringe Flucelvax - single dose syringe Unknown Completed [facility] Adacel (Tdap) Adacel (Tdap) Unknown Completed [facility] COVID-19 Vaccine (Naveen) COVID-19 Vaccine (Naveen) Unknown Completed [facility] Afluria single dose Afluria single dose Unknown Completed [facility] Flucelvax - multidose vial Flucelvax - multidose vial Unknown Completed [facility] Afluria Afluria Unknown Completed [facility] Flucelvax - single dose syringe Flucelvax - single dose syringe Unknown Completed [facility] Adacel (Tdap) Adacel (Tdap) Unknown Completed [facility] COVID-19 Vaccine (Naveen) COVID-19 Vaccine (Naveen) Unknown Completed [facility] Afluria single dose Afluria single dose Unknown Completed [facility] Flucelvax - multidose vial Flucelvax - multidose vial Unknown Completed [facility] Afluria Afluria Unknown Completed [facility] Flucelvax - single dose syringe Flucelvax - single dose syringe Unknown Completed [facility] Adacel (Tdap) Adacel (Tdap) Unknown Completed [facility] COVID-19 Vaccine (Naveen) COVID-19 Vaccine (Naveen) Unknown Completed [facility] Afluria (IIV4) - 3 years and older - SDS - 0.5mL Afluria (IIV4) - 3 years and older - SDS - 0.5mL Unknown Completed [facility] Flucelvax (ccIIV4) - MDV - 0.5mL Flucelvax (ccIIV4) - MDV - 0.5mL Unknown Completed [facility] Afluria Afluria Unknown Completed [facility] Flucelvax (ccIIV4) - SDS - 0.5mL Flucelvax (ccIIV4) - SDS - 0.5mL Unknown Completed [facility] Adacel (Tdap) Adacel (Tdap) Unknown Completed [facility] Prevnar 20 (PCV20) Prevnar 20 (PCV20) Unknown Completed [facility] Fluad (aIIV4) - SDS - 0.5mL Fluad (aIIV4) - SDS - 0.5mL Unknown Completed [facility] COVID-19 Vaccine (Naveen) COVID-19 Vaccine (Naveen) Unknown Completed [facility] Afluria (IIV4) - 3 years and older - SDS - 0.5mL Afluria (IIV4) - 3 years and older - SDS - 0.5mL Unknown Completed [facility] Flucelvax (ccIIV4) - MDV - 0.5mL Flucelvax (ccIIV4) - MDV - 0.5mL Unknown Completed [facility] Afluria Afluria Unknown Completed [facility] Flucelvax (ccIIV4) - SDS - 0.5mL Flucelvax (ccIIV4) - SDS - 0.5mL Unknown Completed [facility] Adacel (Tdap) Adacel (Tdap) Unknown Completed [facility] Prevnar 20 (PCV20) Prevnar 20 (PCV20) Unknown Completed [facility] Fluad (aIIV4) - SDS - 0.5mL Fluad (aIIV4) - SDS - 0.5mL Unknown Completed [facility] COVID-19 Vaccine (Naveen) COVID-19 Vaccine (Naveen) Unknown Completed [facility] Afluria (IIV4) - 3 years and older - SDS - 0.5mL Afluria (IIV4) - 3 years and older - SDS - 0.5mL Unknown Completed [facility] Flucelvax (ccIIV4) - MDV - 0.5mL Flucelvax (ccIIV4) - MDV - 0.5mL Unknown Completed [facility] Afluria Afluria Unknown Completed [facility] Flucelvax (ccIIV4) - SDS - 0.5mL Flucelvax (ccIIV4) - SDS - 0.5mL Unknown Completed [facility] Adacel (Tdap) Adacel (Tdap) Unknown Completed [facility] Prevnar 20 (PCV20) Prevnar 20 (PCV20) Unknown Completed [facility] Fluad (aIIV4) - SDS - 0.5mL Fluad (aIIV4) - SDS - 0.5mL Unknown Completed [facility] COVID-19 Vaccine (Naveen) COVID-19 Vaccine (Naveen) Unknown Completed [facility] Afluria (IIV4) - 3 years and older - SDS - 0.5mL Afluria (IIV4) - 3 years and older - SDS - 0.5mL Unknown Completed [facility] Flucelvax (ccIIV4) - MDV - 0.5mL Flucelvax (ccIIV4) - MDV - 0.5mL Unknown Completed [facility] Afluria Afluria Unknown Completed [facility] Flucelvax (ccIIV4) - SDS - 0.5mL Flucelvax (ccIIV4) - SDS - 0.5mL Unknown Completed [facility] Adacel (Tdap) Adacel (Tdap) Unknown Completed [facility] Prevnar 20 (PCV20) Prevnar 20 (PCV20) Unknown Completed [facility] Fluad (aIIV4) - SDS - 0.5mL Fluad (aIIV4) - SDS - 0.5mL Unknown Completed [facility] COVID-19 Vaccine (Naveen) COVID-19 Vaccine (Naveen) Unknown Completed [facility] Afluria (IIV4) - 3 years and older - SDS - 0.5mL Afluria (IIV4) - 3 years and older - SDS - 0.5mL Unknown Completed [facility] Flucelvax (ccIIV4) - MDV - 0.5mL Flucelvax (ccIIV4) - MDV - 0.5mL Unknown Completed [facility] Afluria Afluria Unknown Completed [facility] Flucelvax (ccIIV4) - SDS - 0.5mL Flucelvax (ccIIV4) - SDS - 0.5mL Unknown Completed [facility] Adacel (Tdap) Adacel (Tdap) Unknown Completed [facility] Prevnar 20 (PCV20) Prevnar 20 (PCV20) Unknown Completed [facility] Fluad (aIIV4) - SDS - 0.5mL Fluad (aIIV4) - SDS - 0.5mL Unknown Completed [facility] COVID-19 Vaccine (Naveen) COVID-19 Vaccine (Naveen) Unknown Completed [facility] Afluria (IIV4) - 3 years and older - SDS - 0.5mL Afluria (IIV4) - 3 years and older - SDS - 0.5mL Unknown Completed [facility] Flucelvax (ccIIV4) - MDV - 0.5mL Flucelvax (ccIIV4) - MDV - 0.5mL Unknown Completed [facility] Afluria Afluria Unknown Completed [facility] Flucelvax (ccIIV4) - SDS - 0.5mL Flucelvax (ccIIV4) - SDS - 0.5mL Unknown Completed [facility] Adacel (Tdap) Adacel (Tdap) Unknown Completed [facility] Prevnar 20 (PCV20) Prevnar 20 (PCV20) Unknown Completed [facility] Fluad (aIIV4) - SDS - 0.5mL Fluad (aIIV4) - SDS - 0.5mL Unknown Completed [facility] COVID-19 Vaccine (Naveen) COVID-19 Vaccine (Naveen) Unknown Completed [facility] Afluria (IIV4) - 3 years and older - SDS - 0.5mL Afluria (IIV4) - 3 years and older - SDS - 0.5mL Unknown Completed [facility] Flucelvax (ccIIV4) - MDV - 0.5mL Flucelvax (ccIIV4) - MDV - 0.5mL Unknown Completed [facility] Afluria Afluria Unknown Completed [facility] Flucelvax (ccIIV4) - SDS - 0.5mL Flucelvax (ccIIV4) - SDS - 0.5mL Unknown Completed [facility] Adacel (Tdap) Adacel (Tdap) Unknown Completed [facility] Prevnar 20 (PCV20) Prevnar 20 (PCV20) Unknown Completed [facility] Fluad (aIIV4) - SDS - 0.5mL Fluad (aIIV4) - SDS - 0.5mL Unknown Completed [facility] COVID-19 Vaccine (Naveen) COVID-19 Vaccine (Naveen) Unknown Completed [facility] Afluria (IIV4) - 3 years and older - SDS - 0.5mL Afluria (IIV4) - 3 years and older - SDS - 0.5mL Unknown Completed [facility] Flucelvax (ccIIV4) - MDV - 0.5mL Flucelvax (ccIIV4) - MDV - 0.5mL Unknown Completed [facility] Afluria Afluria Unknown Completed [facility] Flucelvax (ccIIV4) - SDS - 0.5mL Flucelvax (ccIIV4) - SDS - 0.5mL Unknown Completed [facility] Adacel (Tdap) Adacel (Tdap) Unknown Completed [facility] Fluad (IIV) - SDS - 0.5mL Fluad (IIV) - SDS - 0.5mL Unknown Completed [facility] Vital Signs Vital Name Observation Time Observation Value Comments S mance height 2024-03-16 09:30:00 71 [in_i] Commo n [facility] weight 2024-03-16 09:30:00 171 [lb_av] Comm on [facility] temperature 2024-03-16 09:30:00 97.6 [degF] Com mon [facility] bmi 2024-03-16 09:30:00 23.85 kg/m2 Comm on [facility] oximetry 2024-03-16 09:30:00 98 % Commo n [facility] respiratory rate 2024-03-16 09:30:00 18 /min Common [facility] blood pressure systolic 2024-03-16 09:30:00 134 mm[Hg] Common [facility] blood pressure diastolic 2024-03-16 09:30:00 77 mm[Hg] [facility] height 2024-03-16 09:45:00 71 [in_i] Commo n [facility] weight 2024-03-16 09:45:00 171 [lb_av] Comm on [facility] temperature 2024-03-16 09:45:00 97.6 [degF] Com [facility] bmi 2024-03-16 09:45:00 23.85 kg/m2 Comm on [facility] oximetry 2024-03-16 09:45:00 98 % Commo n [facility] blood pressure systolic 2024-03-16 09:45:00 134 mm[Hg] [facility] blood pressure diastolic 2024-03-16 09:45:00 77 mm[Hg] Common [facility] height 2023-10-10 08:30:00 71 [in_i] Commo n [facility] weight 2023-10-10 08:30:00 166 [lb_av] Comm on [facility] temperature 2023-10-10 08:30:00 97.7 [degF] Com [facility] bmi 2023-10-10 08:30:00 23.15 kg/m2 Comm on [facility] oximetry 2023-10-10 08:30:00 99 % Commo n [facility] blood pressure systolic 2023-10-10 08:30:00 139 mm[Hg] [facility] blood pressure diastolic 2023-10-10 08:30:00 72 mm[Hg] Common [facility] height 2023-10-10 08:30:00 71 [in_i] Commo n [facility] weight 2023-10-10 08:30:00 166 [lb_av] Comm on [facility] temperature 2023-10-10 08:30:00 97.7 [degF] Com [facility] bmi 2023-10-10 08:30:00 23.15 kg/m2 Comm on [facility] oximetry 2023-10-10 08:30:00 99 % Commo n [facility] blood pressure systolic 2023-10-10 08:30:00 139 mm[Hg] [facility] blood pressure diastolic 2023-10-10 08:30:00 72 mm[Hg] Common [facility] height 2023-06-06 15:20:00 71 [in_i] Commo n [facility] weight 2023-06-06 15:20:00 168.8 [lb_av] Co mmon [facility] temperature 2023-06-06 15:20:00 98.0 [degF] Com [facility] bmi 2023-06-06 15:20:00 23.54 kg/m2 Comm on [facility] oximetry 2023-06-06 15:20:00 98 % Commo n [facility] respiratory rate 2023-06-06 15:20:00 18 /min [facility] blood pressure systolic 2023-06-06 15:20:00 132 mm[Hg] Common [facility] blood pressure diastolic 2023-06-06 15:20:00 70 mm[Hg] Common [facility] height 2023-03-15 15:10:00 71 [in_i] Commo n [facility] weight 2023-03-15 15:10:00 172.6 [lb_av] Co mmon [facility] temperature 2023-03-15 15:10:00 98.2 [degF] Com [facility] bmi 2023-03-15 15:10:00 24.07 kg/m2 Comm on [facility] oximetry 2023-03-15 15:10:00 95 % Commo n [facility] blood pressure systolic 2023-03-15 15:10:00 138 mm[Hg] Common [facility] blood pressure diastolic 2023-03-15 15:10:00 70 mm[Hg] Common [facility] height 2023-03-15 15:20:00 71 [in_i] Commo n [facility] weight 2023-03-15 15:20:00 172.6 [lb_av] Co [facility] temperature 2023-03-15 15:20:00 98.2 [degF] Com [facility] bmi 2023-03-15 15:20:00 24.07 kg/m2 Comm on [facility] oximetry 2023-03-15 15:20:00 95 % Commo n [facility] blood pressure systolic 2023-03-15 15:20:00 138 mm[Hg] Common [facility] blood pressure diastolic 2023-03-15 15:20:00 70 mm[Hg] Common [facility] height 2022-09-27 14:20:00 71 [in_i] Commo n [facility] weight 2022-09-27 14:20:00 167.0 [lb_av] Co [facility] temperature 2022-09-27 14:20:00 98.0 [degF] Com [facility] bmi 2022-09-27 14:20:00 23.29 kg/m2 Comm on [facility] oximetry 2022-09-27 14:20:00 96 % Commo n [facility] respiratory rate 2022-09-27 14:20:00 17 /min Common [facility] blood pressure systolic 2022-09-27 14:20:00 138 mm[Hg] Common [facility] blood pressure diastolic 2022-09-27 14:20:00 70 mm[Hg] Common [facility] height 2022-04-27 13:20:00 71 [in_i] Commo n [facility] weight 2022-04-27 13:20:00 173.2 [lb_av] Co mmon [facility] temperature 2022-04-27 13:20:00 97.3 [degF] Com [facility] bmi 2022-04-27 13:20:00 24.15 kg/m2 Comm on [facility] oximetry 2022-04-27 13:20:00 99 % Commo n [facility] respiratory rate 2022-04-27 13:20:00 18 /min [facility] blood pressure systolic 2022-04-27 13:20:00 128 mm[Hg] [facility] blood pressure diastolic 2022-04-27 13:20:00 72 mm[Hg] Common [facility] height 2021-11-12 10:50:00 71 [in_i] Commo n [facility] weight 2021-11-12 10:50:00 179 [lb_av] Comm on [facility] temperature 2021-11-12 10:50:00 97.6 [degF] Com [facility] bmi 2021-11-12 10:50:00 24.96 kg/m2 Comm on [facility] oximetry 2021-11-12 10:50:00 99 % Commo n [facility] respiratory rate 2021-11-12 10:50:00 16 /min [facility] blood pressure systolic 2021-11-12 10:50:00 136 mm[Hg] Common [facility] blood pressure diastolic 2021-11-12 10:50:00 69 mm[Hg] Common [facility] height 2021-08-14 09:50:00 71 [in_i] Commo n [facility] weight 2021-08-14 09:50:00 181.2 [lb_av] Co mmon [facility] temperature 2021-08-14 09:50:00 97.5 [degF] Com mon [facility] bmi 2021-08-14 09:50:00 25.27 kg/m2 Comm on [facility] oximetry 2021-08-14 09:50:00 100 % Commo n [facility] respiratory rate 2021-08-14 09:50:00 18 /min Common [facility] blood pressure systolic 2021-08-14 09:50:00 135 mm[Hg] Common [facility] blood pressure diastolic 2021-08-14 09:50:00 72 mm[Hg] Common [facility] height 2021-02-10 14:30:00 71 [in_i] Commo n [facility] weight 2021-02-10 14:30:00 178.9 [lb_av] Co mmon [facility] temperature 2021-02-10 14:30:00 97.3 [degF] Com mon [facility] bmi 2021-02-10 14:30:00 24.95 kg/m2 Comm on [facility] oximetry 2021-02-10 14:30:00 99 % Commo n [facility] respiratory rate 2021-02-10 14:30:00 17 /min Common [facility] blood pressure systolic 2021-02-10 14:30:00 128 mm[Hg] Common [facility] blood pressure diastolic 2021-02-10 14:30:00 85 mm[Hg] Common [facility] Encounters Start Date/Time End Date/Time Encounter Type Admission Type Attending Clinicians Care Facility Care Department Encounter ID Source 2024-03-14 13:41:00 Outpatient Richter, Rocky [facility] [id number] [facility] 2023-10-10 08:22:00 Outpatient Richter, Rocky [facility] [id number] [facility] 2023-03-14 13:56:00 Outpatient Richter, Rocky [facility] [id number] [facility] 2022-09-27 14:15:00 Outpatient Richter, Rocky [facility] [id number] [facility] 2022-09-23 13:58:00 Outpatient Richter, Rocky [facility] [id number] [facility] 2022-08-19 09:00:00 Outpatient Richter, Rocky STLC ST[facility] [id number] [facility] 2022-02-10 09:20:01 Outpatient Richter, Rocky [facility] [id number] [facility] 2021-09-17 14:25:00 Outpatient Richter, Rocky [facility] [id number] [facility] 2021-04-01 13:27:44 Outpatient Richter, Rocky [facility] [id number] [facility] 2021-04-01 12:43:53 Outpatient Richter, Rocky [facility] [id number] [facility] 2021-04-01 12:33:03 Outpatient Richter, Rocky [facility] [id number] [facility] 2021-04-01 12:13:11 Outpatient Richter, Rocky STLMLC STLMLC [id number] [facility] 2021-04-01 12:12:20 Outpatient Richter, Rocky STLMLC STLMLC [id number] [facility] 2021-04-01 12:08:00 Outpatient Richter, Rocky STLC STLC [id number] [facility] 2021-04-01 11:19:27 Outpatient Richter, Rocky STLC STLC [id number] [facility] 2021-04-01 11:18:34 Outpatient Richter, Rocky STLC STLC [id number] [facility] 2021-04-01 11:18:09 Outpatient Richter, Rocky STLC STLC [id number] [facility] 2021-04-01 11:03:20 Outpatient Richter, Rocky STLC STLC [id number] [facility] 2021-04-01 11:01:56 Outpatient Richter, Rocky STLC STLC [id number] [facility] 2021-04-01 10:59:52 Outpatient Richter, Rocky STLC STLC [id number] [facility] 2024-03-16 00:00:00 2024-03-16 00:00:00 OFFICE VISIT ESTAB PT LEVEL 4 STLMLC STLMLC [id number] [facility] 2024-03-16 00:00:00 2024-03-16 00:00:00 [facility]IT [facility]AL [facility] VIS[facility] STLMLC STLMLC [id number] [facility] 2023-10-10 00:00:00 2023-10-10 00:00:00 OFFICE VISIT ESTAB PT LEVEL 4 STLMLC STLMLC [id number] [facility] 2023-10-07 00:00:00 2023-10-07 00:00:00 (TEL) STLMLC STLMLC [id number] [facility] 2023-06-10 00:00:00 2023-06-10 00:00:00 (TEL) STLMLC STLMLC [id number] [facility] 2023-06-06 00:00:00 2023-06-06 00:00:00 OFFICE VISIT ESTAB PT LEVEL 4 STLMLC STLMLC [id number] [facility] 2023-03-15 00:00:00 2023-03-15 00:00:00 OFFICE VISIT ESTAB PT LEVEL 4 STLMLC STLMLC [id number] [facility] 2023-03-15 00:00:00 2023-03-15 00:00:00 WELCOME TO MEDICARE PREV PHY EXAM STLMLC STLMLC [id number] [facility] 2023-02-09 00:00:00 2023-02-09 00:00:00 (TEL) STLMLC STLMLC [id number] [facility] 2023-02-07 00:00:00 2023-02-07 00:00:00 (TEL) STLMLC STLMLC [id number] [facility] 2022-10-11 00:00:00 2022-10-11 00:00:00 (TEL) STLMLC STLMLC [id number] [facility] 2022-09-27 00:00:00 2022-09-27 00:00:00 (TEL) STLMLC STLMLC [id number] [facility] 2022-09-27 00:00:00 2022-09-27 00:00:00 (HOSP F/U) Hospital Follow Up STLMLC STLMLC [id number] [facility] 2022-08-12 00:00:00 2022-08-12 00:00:00 (TEL) STLMLC STLMLC [id number] [facility] 2022-05-12 00:00:00 2022-05-12 00:00:00 (TEL) STLMLC STLMLC [id number] [facility] 2022-05-05 00:00:00 2022-05-05 00:00:00 (TEL) STLMLC STLMLC [id number] [facility] 2022-04-27 00:00:00 2022-04-27 00:00:00 OFFICE VISIT ESTAB PT LEVEL 4 STLMLC STLMLC [id number] [facility] 2022-02-11 00:00:00 2022-02-11 00:00:00 (TEL) STLMLC STLMLC [id number] [facility] 2021-11-12 00:00:00 2021-11-12 00:00:00 PREV VISIT EST AGE 40-64 STLMLC STLMLC [id number] [facility] 2021-08-14 00:00:00 2021-08-14 00:00:00 OFFICE VISIT ESTAB PT LEVEL 4 STLMLC STLMLC [id number] [facility] 2021-08-06 00:00:00 2021-08-06 00:00:00 (TEL) STLMLC STLMLC [id number] [facility] 2021-02-10 00:00:00 2021-02-10 00:00:00 OFFICE VISIT ESTAB PT LEVEL 4 STLMLC STLMLC [id number] [facility] 2020-09-23 00:00:00 2020-09-23 00:00:00 Outpatient STLMLC STLMLC [id number] [facility] 2020-05-28 00:00:00 2020-05-28 00:00:00 Outpatient STLMLC STLMLC [id number] [facility] 2020-05-27 00:00:00 2020-05-27 00:00:00 Outpatient STLMLC STLMLC [id number] [facility] 2020-04-30 00:00:00 2020-04-30 00:00:00 Outpatient STLMLC STLMLC [id number] [facility] 2020-02-18 00:00:00 2020-02-18 00:00:00 Outpatient STLMLC STLMLC [id number] [facility] 2020-02-15 00:00:2020-02-15 00:00:00 Outpatient STLMLC STLMLC [id number] [facility] 2019-10-25 11:00:00 2019-10-25 11:00:[address] [facility] [id number] [facility] 2019-09-12 13:02:00 2019-09-12 13:02:00 [facility] [id number] [facility] 2019-08-17 10:00:00 2019-08-17 10:00:00 [facility] [id number] [facility] 2019-07-24 15:08:00 2019-07-24 15:08:[address] [facility] [id number] [facility] 2019-07-13 10:33:00 2019-07-13 10:33:00 [facility] [id number] [facility] 2019-07-09 08:00:00 2019-07-09 08:00:00 [facility] [id number] [facility] 2019-04-02 16:24:00 2019-04-02 16:24:00 [facility] [id number] [facility] 2019-04-02 09:45:00 2019-04-02 09:45:00 [facility] [id number] [facility] 2019-03-19 09:00:00 2019-03-19 09:00:00 [facility] [id number] [facility] 2018-12-25 10:00:00 2018-12-25 10:00:00 [facility] [id number] [facility] 2018-09-26 14:45:00 2018-09-26 14:45:00 [facility] [id number] [facility] 2018-07-12 14:45:00 2018-07-12 14:45:00 [facility] [id number] [facility] 2018-06-12 14:45:00 2018-06-12 14:45:00 [facility] [id number] [facility] 2018-05-08 09:00:00 2018-05-08 09:00:00 [facility] [id number] [facility] 2017-08-15 08:30:00 2017-08-15 08:30:00 [facility] [id number] [facility] 2017-06-14 11:00:00 2017-06-14 11:00:00 [facility] [id number] [facility] Results Test Description Test Time Test Comments Results Result Co mments Source CBC W/AUTO [id number] 00:00:00* Test Item Value Reference Range Interpretation Comme nts NUCLEATED RBCS (test code = 97793-4) 0.0 /100 WBC'S See_Comment [Automated messa ge] The system which generated this result transmitted reference range: 0.0 /100 WBC'S. The reference range was not used to interpret this result as normal/abnormal. ABSOLUTE EOSINOPHILS (test code = 54823-8) 0.57 K/UL See_Comment H [Automated messa ge] The system which generated this result transmitted reference range: 0.00-0.50 K/UL. The reference range was not used to interpret this result as normal/abnormal. ABSOLUTE LYMPHOCYTES (test code = 80016-8) 3.43 K/UL See_Comment [Automated messa ge] The system which generated this result transmitted reference range: 1.00-4.00 K/UL. The reference range was not used to interpret this result as normal/abnormal. ABSOLUTE MONOCYTES (test code = 71250-3) 0.61 K/UL See_Comment [Automated messa ge] The system which generated this result transmitted reference range: 0.20-1.00 K/UL. The reference range was not used to interpret this result as normal/abnormal. ABSOLUTE NEUTROPHILS (test code = 00265-1) 4.00 K/UL See_Comment [Automated messa ge] The system which generated this result transmitted reference range: 1.50-7.50 K/UL. The reference range was not used to interpret this result as normal/abnormal. BASOPHILS (test code = 35340-5) 0.7 % COMMENTS (test code = 41632-5) (NOTE) EOSINOPHILS (test code = 08602-3) 6.6 % HEMATOCRIT (test code = 81284-5) 47.5 % See_Comment [Automated messa ge] The system which generated this result transmitted reference range: 40.0-51.0 %. The reference range was not used to interpret this result as normal/abnormal. HEMOGLOBIN (test code = 718-7) 16.4 G/DL See_Comment [Automated messa ge] The system which generated this result transmitted reference range: 13.5-17.0 G/DL. The reference range was not used to interpret this result as normal/abnormal. LYMPHOCYTES (test code = 28532-7) 39.5 % MCH (test code = 75407-5) 32.0 PG See_Comment [Automated messa ge] The system which generated this result transmitted reference range: 25.0-33.0 PG. The reference range was not used to interpret this result as normal/abnormal. MCHC (test code = 54315-3) 34.5 G/DL See_Comment [Automated messa ge] The system which generated this result transmitted reference range: 31.0-36.0 G/DL. The reference range was not used to interpret this result as normal/abnormal. MCV (test code = 72596-1) 92.8 fL See_Comment [Automated messa ge] The system which generated this result transmitted reference range: 80.0-99.0 fL. The reference range was not used to interpret this result as normal/abnormal. MONOCYTES (test code = 98332-6) 7.0 % NEUTROPHILS (test code = 71897-5) 46.0 % PLATELET COUNT (test code = 70516-5) 76 K/UL See_Comment L [Automated messa ge] The system which generated this result transmitted reference range: 130-400 K/UL. The reference range was not used to interpret this result as normal/abnormal. RBC (test code = 86638-3) 5.12 M/UL See_Comment [Automated messa ge] The system which generated this result transmitted reference range: 4.50-6.10 M/UL. The reference range was not used to interpret this result as normal/abnormal. RDW (test code = 70571-1) 13.4 % See_Comment [Automated messa ge] The system which generated this result transmitted reference range: 11.5-15.0 %. The reference range was not used to interpret this result as normal/abnormal. WBC (test code = 92179-7) 8.7 K/UL See_Comment [Automated messa ge] The system which generated this result transmitted reference range: 3.5-11.0 K/UL. The reference range was not used to interpret this result as normal/abnormal. HEMOGLOBIN [id number] 00:00:00* Test Item Value Reference Range Interpretation Comme nts HEMOGLOBIN A1c (test code = 4548-4) 5.8 % See_Comment H [Automated messa ge] The system which generated this result transmitted reference range: 4.2-5.6 %. The reference range was not used to interpret this result as normal/abnormal.
[2024-07-07 20:34] LABS: Absolute Basophils 0.1 K/uL (0-0.5); Absolute Eosinophils 0.5 K/uL (0-0.5); Absolute Lymphocytes (CBC) 3.2 K/uL (0.7-4.9); Absolute Monocytes 0.9 K/uL (0.1-1.3); Absolute Neutrophil 6.1 K/uL (1.8-8.0); Basophils % 0.9 % (0-1.3); Eosinophils % 4.5 % (0-4.4); Hematocrit 37.7 % (39.6-49.0); Hemoglobin 13.2 g/dL (13.6-17.9); Lymphocytes % 29.7 % (15.3-44.8); MCH 32.1 pg (27.0-35.0); MCHC 35.1 g/dL (32.0-36.0); MCV 91.4 fL (80-100); MPV 7.1 fL (7.6-11.3); Monocytes % 8.2 % (3.3-12.3); Neutrophils % 56.7 % (41.7-73.7); Nucleated Red Blood Cells % 0.1 % (0-0); Platelets 303 thou/uL (152-406); RBC Red Blood Cell Count 4.12 M/uL (4.33-5.43); Red Cell Distribution Width 14.9 % (12.1-15.2)
[2024-07-07 20:46] LABS: Specific Gravity 1.006 (1.005-1.030); Sqamous Epithelial <5 /HPF (None Seen); Urine Bacteria None Seen /HPF (<20); Urine Bilirubin NEGATIVE (Negative); Urine Blood Negative (Negative); Urine Clarity Clear (Clear); Urine Color Colorless (Yellow); Urine Glucose NEGATIVE (Negative); Urine Ketones NEGATIVE (Negative); Urine Micro Reflex YN NO BILL MICROSCOPIC; Urine Nitrite NEGATIVE (Negative); Urine Protein NEGATIVE (Negative); Urine RBC <5 /HPF (None Seen); Urine Urobilinogen Normal (Normal); Urine WBC <5 /HPF (<5); Urine pH 6.5 (5.0-7.0)
[2024-07-07 20:49] LABS: Anion Gap 10.5 mEq/L (5.0-15.0); Potassium 3.5 mEq/L (3.5-5.1)
[2024-07-07] MEDS ORDERED: SULFAMETH/TRIMETHOPRIM 200 MG/5 ML UDBOT ONE (21:06)
[2024-07-07] MEDS ORDERED: FENTANYL CITR 100 MCG/2 ML ONE (21:15)
--- NOTE | 2024-07-07 21:32 | RAD REPORT ---
EXAM: CT CHEST, ABDOMEN AND PELVIS WITHOUT CONTRAST CLINICAL INDICATION: Male, 69 years old. [facility] MAIN fall Bed Name: 17 TECHNIQUE: CT chest, abdomen and pelvis was performed, without IV contrast, as per department protoco l. Axial, sagittal and coronal reconstructions were obtained. One or more of the following dose reduction techniques were used: Automated exposure control, adjustment of the mA and/or kV according to the patient size, and/or iterative reconstruction. Unless otherwise specified, incidental findings do not require dedicated imaging follow-up. COMPARISON: No prior exam. FINDINGS: The lack of intravenous contrast limits the sensitivity of this exam for evaluation of solid visceral organs, vascular structures, and retroperitoneum. Chest: LOWER NECK/CHEST WALL: Visualized thyroid gland and soft tissues are normal. LUNGS AND AIRWAYS: Airways are clear. No evidence of airspace or interstitial process. No nodules. PLEURA: No pleural effusion. No pneumothorax. Hemidiaphragms are normally positioned. MEDIASTINUM AND LYMPH NODES: No mediastinal mass or fluid collection. Normal size mediastinal, hilar, and axillary lymph nodes. THORACIC AORTA: Normal caliber and configuration. PULMONARY ARTERIES: Normal caliber. HEART: Unremarkable. Abdomen/Pelvis LIVER: Normal in size and contour. No focal lesion. GALLBLADDER/BILE DUCTS: No biliary ductal dilatation. PANCREAS: No mass, ductal dilation, or aleah-pancreatic fluid. SPLEEN: Normal size. No focal lesion. ADRENALS: Normal; no mass. KIDNEYS AND URETERS: Normal size and contour. No hydronephrosis. GASTROINTESTINAL TRACT: Stomach is non-dilated. Small bowel has normal course and caliber. No colonic wall thickening or pericolonic inflammatory changes. PERITONEUM: No free fluid. LYMPH NODES: No lymphadenopathy. ABDOMINAL AORTA AND OTHER VESSELS: Normal caliber aorta and IVC. URINARY BLADDER: Normal contour. REPRODUCTIVE ORGANS: No pathologic process. MUSCULOSKELETAL: No acute or suspicious osseous abnormality. ADDITIONAL FINDINGS: None IMPRESSION: No acute or traumatic abnormalities in the chest, abdomen, or pelvis.
--- NOTE | 2024-07-07 21:36 | RAD REPORT ---
EXAM: CT brain without contrast HISTORY: FALL COMPARISON: None TECHNIQUE: Multiple contiguous axial images were obtained and a CT of the brain without contrast. Sag ittal and coronal reformats were performed. FINDINGS: No evidence of hydrocephalus, intracranial hemorrhage, or extra-axial fluid collection. The brain is normal in morphology. The calvarium is intact. Extensive opacification throughout the paranasal sinuses, with some air-flui d levels. Polypoidal mucosal thickening and opacification throughout the paranasal temperatures. IMPRESSION: No evidence of acute intracranial abnormality. Extensive opacification throughout the nasal cavity and paranasal sinuses with some paranasal sinus a ir-fluid levels. Findings may relate to acute on top of chronic sinusitis. Please correlate clinically. EXAM: CT of the cervical spine without contrast HISTORY: FALL COMPARISON: None TECHNIQUE: Multiple contiguous axial images were obtained in a CT of the cervical spine without contr ast. Sagittal and coronal reformats were performed. FINDINGS: The vertebral bodies demonstrate normal height and alignment. No evidence of acute fracture or subluxation.. No degenerative changes are present. No prevertebral soft tissue swelling is seen. The posterior facets are well aligned. Normal alignment of the skull base with the cervical spine is seen. The lung apices are unremarkable. IMPRESSION: No evidence of acute osseous abnormality of the cervical spine.
--- NOTE | 2024-07-07 22:27 | EDPHYS ---
Physician Documentation [facility] Name: Joel Romano Age: 69 yrs Sex: Male : 1955 Arrival Date: 07/07/2024 Time: 19:42 Bed 17 Private MD: ED Physician Cristóbal Ortega HPI: 07/07 20:10 This 69 yrs old Male presents to ER via Ambulatory with complaints of Fall cp Injury, Back Injury. 20:10 Patient is a 69-year-old male who presents to the emergency department complaints of cp back pain. Patient reports he was working in an attic 2 days ago when he lost his footing and his right foot fell through the ceiling causing him to fall back and hit his head. Patient reports he did not fall completely through the ceiling and onto the lower floor but now complains of back pain. Patient denies any loss of consciousness but notes swelling behind his right ear. Historical: - Allergies: 19:57 Eggs; cm10 19:57 preservitives; cm10 19:57 Wheat/glutens; cm10 - PMHx: 19:57 COPD; GERD; Hyperlipidemia; Hypertension; cm10 - Immunization history:: Adult Immunizations up to date. - Infectious Disease History:: Denies. - Immunization history: Last tetanus immunization: unknown. - Social history:: Smoking status: Patient denies any tobacco usage or history of. ROS: 20:15 Constitutional: Negative for body aches, chills, fever, poor PO intake, cp 20:15 Eyes: Negative for injury, pain, redness, and discharge, cp 20:15 Neck: Negative for pain with movement, pain at rest, stiffness, 20:15 Cardiovascular: Negative for chest pain, 20:15 Respiratory: Negative for cough, shortness of breath, wheezing, 20:15 Abdomen/GI: Negative for vomiting, diarrhea, constipation, 20:15 Back: Positive for pain at rest, pain with movement, 20:15 Neuro: Negative for altered mental status, loss of consciousness, weakness, 20:15 All other systems are negative, cp Exam: 20:20 Constitutional: The patient appears in no acute distress, alert, awake, cp non-diaphoretic, non-toxic, well developed, well nourished, uncomfortable, 20:20 Head/face: Noted is contusion, that is superficial, of the right occipital area and cp right base of the skull, swelling, that is mild, of the right occipital area and right base of the skull, 20:20 Eyes: Periorbital structures: appear normal, Pupils: equal, round, and reactive to light and accomodation, Extraocular movements: intact throughout, Conjunctiva: normal, no exudate, no injection, Lids and lashes: appear normal, bilaterally, 20:20 ENT: External ear(s): are unremarkable, Ear canal(s): are normal, clear, TM's: dullness, bilaterally, Nose: is normal, Mouth: Lips: moist, Oral mucosa: moist, Posterior pharynx: Airway: no evidence of obstruction, patent, 20:20 Neck: C-spine: vertebral tenderness, is not appreciated, crepitus, is not appreciated, ROM/movement: pain, is not appreciated, limited range of motion, is not appreciated, 20:20 Chest/axilla: Inspection: normal, Palpation: crepitus, is not appreciated, tenderness, is not appreciated, 20:20 Cardiovascular: Rate: normal, Rhythm: regular, 20:20 Respiratory: the patient does not display signs of respiratory distress, Respirations: normal, no use of accessory muscles, no retractions, labored breathing, is not present, Breath sounds: are clear throughout, no decreased breath sounds, 20:20 Abdomen/GI: Inspection: abdomen appears normal, Palpation: abdomen is soft and non-tender, in all quadrants, 20:20 Back: pain, that is moderate, of the right subscapular area and right mid back, ROM is painful, with all movement, 20:20 Musculoskeletal/extremity: Extremities: all appear grossly normal, with no appreciated pain with palpation, 20:20 Neuro: Orientation: to person, place \T\ time. Mentation: is normal, Motor: moves all fours, strength is normal, Vital Signs: 19:56 BP 158 / 94; Pulse 74; Resp 15; Temp 97.6; Pulse Ox 100% on R/A; Weight 78.02 kg; cm10 Height 5 ft. 10 in. ; Pain 7/10; 21:19 BP 131 / 81; Pulse 63; Resp 20; Pulse Ox 99% ; kj2 22:40 BP 130 / 78; Pulse 68; Resp 18; Temp 97.9; Pulse Ox 100% on R/A; kj2 19:56 Body Mass Index 24.68 (78.02 kg, 177.8 cm) cm10 19:56 Pain Scale: Adult cm10 Whitefield Coma Score: 20:24 Eye Response: spontaneous(4). Motor Response: obeys commands(6). Verbal Response: kj2 oriented(5). Total: 15. Trauma Score (Adult): 20:24 Eye Response: spontaneous(1); Verbal Response: oriented(1); Motor Response: obeys kj2 commands(2); Systolic BP: > 89 mm Hg(4); Respiratory Rate: 10 to 29 per min(4); Whitefield Score: 15; Trauma Score: 12 MDM: 19:54 Medical Screening Exam initiated cp 21:00 Differential diagnosis: closed head injury, contusion, fracture, multiple trauma. 22:25 Data reviewed: vital signs, nurses notes, radiologic studies, CT scan, and as a result, I will discharge patient. 22:25 I considered the following discharge prescriptions or medication management in the emergency department Medications were administered in the Emergency Department. See MAR. 22:25 Counseling: I had a detailed discussion with the patient and/or guardian regarding the historical points, exam findings, and any diagnostic results supporting the discharge/admit diagnosis, radiology results, to return to the emergency department if symptoms worsen or persist or if there are any questions or concerns that arise at home. Response to treatment: the patient's symptoms have mildly improved after treatment, and as a result, I will discharge patient. 07/07 20:04 Order name: Basic Metabolic Panel; Complete Time: 22:22 07/07 22:22 Interpretation: Normal except: NA 131; CL 97; GFR 83. 07/07 20:04 Order name: CBC with Diff; Complete Time: 22:22 07/07 22:22 Interpretation: Normal except: RBC 4.12; HGB 13.2; HCT 37.7; MPV 7.1; EOSINOPHIL % 4.5. 07/07 20:04 Order name: Type And Screen; Complete Time: 22:22 cp 07/07 20:04 Order name: UA W/ Microscopic; Complete Time: 22:22 cp 07/07 20:34 Order name: Chest Abd Pelvis Wo Con; Complete Time: 22:22 EDMS 07/07 20:35 Order name: Head C Spine Mpr Wo Con; Complete Time: 22:22 EDMS 07/07 22:24 Interpretation: Report reviewed. cp 07/07 20:04 Order name: Labs collected and sent; Complete Time: 20:24 cp Administered Medications: 21:18 Drug: fentaNYL (PF) IVP 25 mcg IVP once Route: IVP; Site: right antecubital; kj2 22:44 Follow up: Response: No adverse reaction kj2 Disposition: 23:27 Co-signature as Attending Physician, Cristóbal Ortega MD I reviewed the patient's care rt provided by the Advanced Practice Provider and agree with the diagnosis and treatment plan. 07/08 22:04 Chart complete. cp Disposition Summary: 07/07/24 22:26 Discharge Ordered Notes: Location: Home cp Problem: new cp Symptoms: have improved cp Condition: Stable cp Diagnosis - Contusion of unspecified part of head, initial encounter cp - Contusion of right back wall of thorax cp - Fall on same level from slipping, tripping and stumbling with subsequent striking cp against object Followup: cp - With: Private Physician - When: 2 - 3 days - Reason: Worsening of condition Discharge Instructions: - Discharge Summary Sheet cp - Acute Back Pain, Adult cp - Facial or Scalp Contusion cp - Head Injury, Adult cp - Hematoma cp Forms: - Medication Reconciliation Form cp - Antibiotic Education cp - Prescription Opioid Use cp - Patient Portal Instructions cp - Leadership Thank You Letter cp Prescriptions: - Diclofenac Sodium 75 mg Oral Tablet Sustained Release - take 1 tablet ORAL route 2 times per day; 30 tablet; Refills: 0, Product cp Selection Permitted - methocarbamol 750 mg Oral tablet - take 1 tablet ORAL route 3 times per day; 30 tablet; Refills: 0, Product cp Selection Permitted Signatures: Dispatcher [employer] EDMS Rainer Gan PA PA cp Cristóbal Ortega MD MD rt Christa Cuello, RN RN cm10 Elis Gilliam, RN RN kj2 Corrections: (The following items were deleted from the chart) 07/07 20:04 20:04 BASIC METABOLIC PANEL+C.LAB.BRZ ordered. EDMS EDMS 20:04 20:04 CBC+H.LAB.BRZ ordered. EDMS EDMS 20:04 20:04 TYPE AND SCREEN+BB.LAB.BRZ ordered. EDMS EDMS 20:04 20:04 UA W/ Microscopic+U.LAB.BRZ ordered. EDMS EDMS 20:34 20:04 Head C Spine Cap Wo Con+CT.RAD.BRZ ordered. EDMS EDMS 07/08 22:03 05 20:15 All other systems are negative, cp cp
--- NOTE | 2024-07-07 22:27 | ER ---
Nurse's Notes [facility] Name: Joel Romano Age: 69 yrs Sex: Male : 1955 Arrival Date: 07/07/2024 Time: 19:42 Bed 17 Private MD: Diagnosis: Contusion of unspecified part of head, initial encounter;Contusion of right back wall of thorax;Fall on same level from slipping, tripping and stumbling with subsequent striking against object Presentation: 07/07 19:56 Chief complaint: Patient states: Was working in [employer] on and foot fell cm10 through. Pt states that he did not fall through but hit his head and hurt his back. No loc. Coronavirus screen: Client denies travel out of the [place] in the last 14 days. Ebola Screen: Patient denies travel to an Ebola-affected area in the 21 days before illness onset. Initial Sepsis Screen: Does the patient meet any 2 criteria? No. Patient's initial sepsis screen is negative. Does the patient have a suspected source of infection? No. Patient's initial sepsis screen is negative. Risk Assessment: Do you want to hurt yourself or someone else? Patient reports no desire to harm self or others. Onset of symptoms was July 05, 2024. 19:56 Method Of Arrival: Ambulatory cm10 19:56 Acuity: LEV 3 cm10 20:25 Mechanism of Injury: foot went through the attic while working. Trauma event details: kj2 Injury occurred: July 07, 2024. 22:42 Care prior to arrival: None. [facility] Triage Assessment: 19:58 General: Appears in no apparent distress. uncomfortable, Behavior is calm, cooperative. cm10 Pain: Complains of pain in back Pain currently is 7 out of 10 on a pain scale. Neuro: No deficits noted. Level of Consciousness is awake, alert, obeys commands, Oriented to person, place, time, situation, Appropriate for age. Respiratory: No deficits noted. Airway is patent Respiratory effort is even, unlabored, Respiratory pattern is regular, symmetrical. Musculoskeletal: Range of motion: intact in all extremities, Reports pain in back. Historical: - Allergies: 19:57 Eggs; cm10 19:57 preservitives; cm10 19:57 Wheat/glutens; cm10 - PMHx: 19:57 COPD; GERD; Hyperlipidemia; Hypertension; cm10 - Immunization history:: Adult Immunizations up to date. - Infectious Disease History:: Denies. - Immunization history: Last tetanus immunization: unknown. - Social history:: Smoking status: Patient denies any tobacco usage or history of. Screenin:23 [facility] ED Fall Risk Assessment (Adult) History of falling in the last 3 months, kj2 including since admission No falls in past 3 months (0 pts) Confusion or Disorientation No (0 pts) Intoxicated or Sedated No (0 pts) Impaired Gait No (0 pts) Mobility Assist Device Used No (0 pt) Altered Elimination No (0 pt) Score/Fall Risk Level 0 - 2 = Low Risk Maintained a safe environment, Hourly rounding (assess needs \T\ fall precautionary measures) done. Abuse screen: Denies threats or abuse. Denies injuries from another. Nutritional screening: No deficits noted. Tuberculosis screening: No symptoms or risk factors identified. Primary Survey: 20:24 NO uncontrolled hemorrhage observed. Breathing/Chest: Spontaneous respiratory effort, kj2 equal unlabored respirations, breath sounds clear bilaterally, regular pattern, symmetrical chest rise and fall. Circulation: No external hemorrhage present. Regular and strong central pulse, skin warm/dry/normal color. Disability Pupils are equal, round, reactive to light and accommodation. Exposure/Environment: All clothing and personal items were removed. Forensic evidence collection is not deemed to be indicated at this time. Items placed in patient belonging bag. 20:25 Reassessment Breathing: Spontaneous respiratory effort, equal unlabored respirations, kj2 breath sounds clear bilaterally, regular pattern with symmetrical chest rise and fall. Respiratory effort Spontaneous Breath sounds Clear Respiratory pattern Regular Chest inspection Symmetrical. Assessment: 20:22 General: Appears in no apparent distress. distressed, comfortable, Behavior is kj2 cooperative. Pain: Complains of pain in back Pain currently is 5 out of 10 on a pain scale. Neuro: Level of Consciousness is awake, alert, obeys commands, Oriented to person, place, time, situation. Cardiovascular: Patient's skin is warm and dry. Respiratory: Airway is patent Respiratory effort is unlabored. GI: No signs and/or symptoms were reported involving the gastrointestinal system. : No signs and/or symptoms were reported regarding the genitourinary system. 21:19 Reassessment: Patient appears in no apparent distress at this time. Patient and/or kj2 family updated on plan of care and expected duration. Pain level reassessed. Patient is alert, oriented x 3, equal unlabored respirations, skin warm/dry/pink. 22:40 Reassessment: Patient appears in no apparent distress at this time. Patient and/or kj2 family updated on plan of care and expected duration. Pain level reassessed. Patient is alert, oriented x 3, equal unlabored respirations, skin warm/dry/pink. Vital Signs: 19:56 BP 158 / 94; Pulse 74; Resp 15; Temp 97.6; Pulse Ox 100% on R/A; Weight 78.02 kg; cm10 Height 5 ft. 10 in. ; Pain 7/10; 21:19 BP 131 / 81; Pulse 63; Resp 20; Pulse Ox 99% ; kj2 22:40 BP 130 / 78; Pulse 68; Resp 18; Temp 97.9; Pulse Ox 100% on R/A; kj2 19:56 Body Mass Index 24.68 (78.02 kg, 177.8 cm) cm10 19:56 Pain Scale: Adult cm10 [place] Coma Score: 20:24 Eye Response: spontaneous(4). Motor Response: obeys commands(6). Verbal Response: kj2 oriented(5). Total: 15. Trauma Score (Adult): 20:24 Eye Response: spontaneous(1); Verbal Response: oriented(1); Motor Response: obeys kj2 commands(2); Systolic BP: > 89 mm Hg(4); Respiratory Rate: 10 to 29 per min(4); [place] Score: 15; Trauma Score: 12 ED Course: 19:45 Patient arrived in ED. jj6 19:45 Rainer Gan PA is PHCP. cp 19:45 Cristóbal Ortega MD is Attending Physician. cp 19:57 Triage completed. cm10 19:58 Arm band placed on right wrist. Patient placed in an exam room, on a stretcher. cm10 20:18 Elis Gilliam, ARUNA is Primary Nurse. kj2 20:24 Inserted saline lock: 20 gauge in right forearm, using aseptic technique. Blood mm11 collected. Flushed with 10 mL NS. 20:24 Basic Metabolic Panel Sent. mm11 20:24 CBC with Diff Sent. mm11 20:24 Type And Screen Sent. mm11 20:24 UA W/ Microscopic Sent. mm11 20:25 Patient maintains SpO2 saturation greater than 95% on room air. Thermoregulation: none kj2 needed. 20:26 Patient has correct armband on for positive identification. Provided Education on: call kj2 light. 20:54 Chest Abd Pelvis Wo Con In Process Unspecified. EDMS 20:54 Head C Spine Mpr Wo Con In Process Unspecified. EDMS 22:40 No provider procedures requiring assistance completed. IV discontinued, intact, kj2 bleeding controlled, No redness/swelling at site. Pressure dressing applied. Administered Medications: 21:18 Drug: fentaNYL (PF) IVP 25 mcg IVP once Route: IVP; Site: right antecubital; kj2 22:44 Follow up: Response: No adverse reaction kj2 Medication: 20:26 VIS not applicable for this client. kj2 Output: 20:24 Urine: 200ml (Voided); Total: 200ml. kj2 Outcome: 22:26 Discharge ordered by MD. cp 22:42 Discharged to home ambulatory, kj2 22:42 Condition: stable 22:42 Discharge instructions given to patient, family, 22:43 Patient's length of stay was not longer than 2 hours. kj2 23:13 Patient left the ED. kj2 Signatures: Dispatcher [employer] EDMS Rainer Gan PA PA cp Jeffries, Jennifer jj6 Christa Cuello, RN RN cm10 Elis Gilliam RN RN kj2 frank spencer mm11
[2024-07-08 01:35] VITALS: O2SAT 100
[2024-07-08 01:37] VITALS: BP 130/78; TEMP 97.9
== END 2024-07-07 23:13 | disposition home or self-care (01) ==
LOC: ER 19:42
DX: S00.83XA Contusion of other part of head, initial encounter (principal); S20.221A Contusion of right back wall of thorax, initial encounter; W01.198A Fall on same level from slipping, tripping and stumbling with subsequent striking against other object, initial encounter
CPT/HCPCS: 85025; 81001; 80048; 36415; 86900; 86850; 86901; 70450; 71250; 72125; 74176; 96374; 99285; J3010

== ENCOUNTER 2024-10-30 16:03 | Emergency (ER) | payer OTHER ==
--- OUTSIDE RECORDS SUMMARY | 2024-10-30 16:15 | XMS REPORT | Continuity of Care Document ---
Author Name Unknown Address [address] [facility] [address] [place] [address] [facility] [place] Address [address] [facility] [place] [address] Care Team Providers Care Stockkeeper Name Role Phone Rocky Richter Attending Clinician Unavailable Problems Condition Name Condition Details Condition Category Status Onset Date Resolution Date Last Treatment Date Treating Clinician Comments Source [id number] COPD exacerbati on Problem [facility] Nocturia Nocturia Problem [facility] Insomnia Insomnia Problem [facility] Hyperlipid emia Hyperlipid emia Problem [facility] Hypertensi on Hypertensi on Problem [facility] Frequency of urination Frequency of urination Problem [facility] Seasonal allergic rhinitis Allergic rhinitis, seasonal Problem [facility] FH: Diabetes mellitus Family history of diabetes mellitus Problem [facility] Hyponatrem ia Hyponatrem ia Problem [facility] [id number] SOB (shortness of breath) Problem [facility] [id number] Allergic rhinitis, unspecifie d seasonalit y, unspecifie d trigger Problem [facility] Erectile dysfunctio n Erectile dysfunctio n Problem [facility] [id number] Tinnitus, bilateral Problem [facility] Family history of prostate cancer Family hx of prostate cancer Problem [facility] [id number] GERD without esophagiti s Problem [facility] [id number] Chronic obstructiv e pulmonary disease, unspecifie d COPD type Problem [facility] [id number] Subclinica l hypothyroi dism Problem [facility] [id number] Thrombocyt openia Problem [facility] Allergies, Adverse Reactions, Alerts Allergy Name Allergy Type Status Severity Reaction(s) Onset Date Inactive Date Treating Clinician Comments Source rosuvast atin rosuvast atin Active Unknown [facility] sildenaf il sildenaf il Active Unknown [facility] Social History Social Habit Start Date Stop Date Quantity Comments Source History of Tobacco Use [facility] Sex Assigned At [facility] Smoking Status Start Date Stop Date Source Former Smoker 2024-08-14 00:00:00 2024-08-14 00:00:00 [facility] Never Smoker [facility] Medications Ordered Medication Name Filled Medication Name Start Date Stop Date Current Medication? Ordering Clinician Indication Dosage Frequency Signature (SIG) Comments Components Source Kenalog (Triamcinol one) Kenalog (Triamcinol one) 1-13 00:00: 00 No 40mg [facility] amLODIPine Besylate 5 MG amLODIPine Besylate 5 [...] le} Vitamin D3 25 MCG (1000 UT) Flonase 50 MCG/ACT Flonase 50 MCG/ACT No 1{spray _in_eac h_nostr il} QD Flonase 50 MCG/ACT Cozaar 100 MG Cozaar 100 MG No QD Cozaar 100 MG Immunizations Ordered Immunization Name Filled Immunization Name Date Status Comments Source Flucelvax - single dose syringe Flucelvax - single dose syringe 2021-11-12 10:33:00 Completed [facility] Flucelvax - single dose syringe Flucelvax - single dose syringe 2021-11-12 10:33:00 Completed [facility] Flucelvax (ccIIV4) - SDS - 0.5mL Flucelvax (ccIIV4) - SDS - 0.5mL 2021-02-10 14:41:00 Completed [facility] Flucelvax - single dose syringe Flucelvax - single dose syringe 2021-02-10 14:41:00 Completed [facility] Flucelvax - single dose syringe Flucelvax - single dose syringe 2021-02-10 14:41:00 Completed [facility] COVID-19 Vaccine (Naveen) COVID-19 Vaccine (Naveen) 2020-05-28 13:44:00 Completed [facility] COVID-19 Vaccine (Naveen) COVID-19 Vaccine (Naveen) 2020-05-28 13:44:00 Completed [facility] COVID-19 Vaccine (Naveen) COVID-19 Vaccine (Naveen) 2020-05-28 13:44:00 Completed [facility] Afluria single dose Afluria single dose 13:32:00 Completed [facility] Afluria single dose Afluria single dose 13:32:00 Completed [facility] Afluria single dose Afluria single dose 13:32:00 Completed [facility] Flucelvax - multidose vial Flucelvax - multidose vial 2018-12-25 09:59:00 Completed [facility] Flucelvax - multidose vial Flucelvax - multidose vial 2018-12-25 09:59:00 Completed [facility] Flucelvax - multidose vial Flucelvax - multidose vial 2018-12-25 09:59:00 Completed [facility] Flucelvax - multidose vial Flucelvax - multidose vial 2018-12-25 00:00:00 Completed [facility] Adacel (Tdap) Adacel (Tdap) 2018-07-12 15:04:00 Completed [facility] Adacel (Tdap) Adacel (Tdap) 2018-07-12 15:04:00 Completed [facility] Adacel (Tdap) Adacel (Tdap) 2018-07-12 15:04:00 Completed [facility] Afluria Afluria 2018-07-12 15:03:00 Completed [facility] Afluria Afluria 2018-07-12 15:03:00 Completed [facility] Afluria Afluria 2018-07-12 15:03:00 Completed [facility] Afluria Afluria 2018-07-12 00:00:00 Completed [facility] TDAP > 7 Years-Adacel TDAP > 7 Years-Adacel 2018-07-12 00:00:00 Completed [facility] COVID-19 Vaccine (Naveen) COVID-19 Vaccine (Naveen) Unknown Completed [facility] Afluria single dose Afluria single dose Unknown Completed [facility] Flucelvax - multidose vial Flucelvax - multidose vial Unknown Completed [facility] Afluria Afluria Unknown Completed [facility] Flucelvax - single dose syringe Flucelvax - single dose syringe Unknown Completed [facility] Adacel (Tdap) Adacel (Tdap) Unknown Completed [facility] COVID-19 Vaccine (Naveen) COVID-19 Vaccine (Naveen) Unknown Completed [facility] Afluria single dose Afluria single dose Unknown Completed [facility] Flucelvax - multidose vial Flucelvax - multidose vial Unknown Completed [facility] Afluria Afluria Unknown Completed [facility] Flucelvax - single dose syringe Flucelvax - single dose syringe Unknown Completed [facility] Adacel (Tdap) Adacel (Tdap) Unknown Completed [facility] COVID-19 Vaccine (Naveen) COVID-19 Vaccine (Naveen) Unknown Completed [facility] Afluria single dose Afluria single dose Unknown Completed [facility] Flucelvax - multidose vial Flucelvax - multidose vial Unknown Completed [facility] Afluria Afluria Unknown Completed [facility] Flucelvax - single dose syringe Flucelvax - single dose syringe Unknown Completed [facility] Adacel (Tdap) Adacel (Tdap) Unknown Completed [facility] COVID-19 Vaccine (Naveen) COVID-19 Vaccine (Naveen) Unknown Completed [facility] Afluria single dose Afluria single dose Unknown Completed [facility] Flucelvax - multidose vial Flucelvax - multidose vial Unknown Completed [facility] Afluria Afluria Unknown Completed [facility] Flucelvax - single dose syringe Flucelvax - single dose syringe Unknown Completed [facility] Adacel (Tdap) Adacel (Tdap) Unknown Completed [facility] COVID-19 Vaccine (Naveen) COVID-19 Vaccine (Naveen) Unknown Completed [facility] Afluria single dose Afluria single dose Unknown Completed [facility] Flucelvax - multidose vial Flucelvax - multidose vial Unknown Completed [facility] Afluria Afluria Unknown Completed [facility] Flucelvax - single dose syringe Flucelvax - single dose syringe Unknown Completed [facility] Adacel (Tdap) Adacel (Tdap) Unknown Completed [facility] COVID-19 Vaccine (Naveen) COVID-19 Vaccine (Naveen) Unknown Completed [facility] Afluria single dose Afluria single dose Unknown Completed [facility] Flucelvax - multidose vial Flucelvax - multidose vial Unknown Completed [facility] Afluria Afluria Unknown Completed [facility] Flucelvax - single dose syringe Flucelvax - single dose syringe Unknown Completed [facility] Adacel (Tdap) Adacel (Tdap) Unknown Completed [facility] COVID-19 Vaccine (Naveen) COVID-19 Vaccine (Naveen) Unknown Completed [facility] Afluria (IIV4) - 3 years and older - SDS - 0.5mL Afluria (IIV4) - 3 years and older - SDS - 0.5mL Unknown Completed [facility] Flucelvax (ccIIV4) - MDV - 0.5mL Flucelvax (ccIIV4) - MDV - 0.5mL Unknown Completed [facility] Afluria Afluria Unknown Completed [facility] Flucelvax (ccIIV4) - SDS - 0.5mL Flucelvax (ccIIV4) - SDS - 0.5mL Unknown Completed [facility] Adacel (Tdap) Adacel (Tdap) Unknown Completed [facility] Prevnar 20 (PCV20) Prevnar 20 (PCV20) Unknown Completed [facility] Fluad (aIIV4) - SDS - 0.5mL Fluad (aIIV4) - SDS - 0.5mL Unknown Completed [facility] COVID-19 Vaccine (Naveen) COVID-19 Vaccine (Naveen) Unknown Completed [facility] Afluria (IIV4) - 3 years and older - SDS - 0.5mL Afluria (IIV4) - 3 years and older - SDS - 0.5mL Unknown Completed [facility] Flucelvax (ccIIV4) - MDV - 0.5mL Flucelvax (ccIIV4) - MDV - 0.5mL Unknown Completed [facility] Afluria Afluria Unknown Completed [facility] Flucelvax (ccIIV4) - SDS - 0.5mL Flucelvax (ccIIV4) - SDS - 0.5mL Unknown Completed [facility] Adacel (Tdap) Adacel (Tdap) Unknown Completed [facility] Prevnar 20 (PCV20) Prevnar 20 (PCV20) Unknown Completed [facility] Fluad (aIIV4) - SDS - 0.5mL Fluad (aIIV4) - SDS - 0.5mL Unknown Completed [facility] COVID-19 Vaccine (Naveen) COVID-19 Vaccine (Naveen) Unknown Completed [facility] Afluria (IIV4) - 3 years and older - SDS - 0.5mL Afluria (IIV4) - 3 years and older - SDS - 0.5mL Unknown Completed [facility] Flucelvax (ccIIV4) - MDV - 0.5mL Flucelvax (ccIIV4) - MDV - 0.5mL Unknown Completed [facility] Afluria Afluria Unknown Completed [facility] Flucelvax (ccIIV4) - SDS - 0.5mL Flucelvax (ccIIV4) - SDS - 0.5mL Unknown Completed [facility] Adacel (Tdap) Adacel (Tdap) Unknown Completed [facility] Prevnar 20 (PCV20) Prevnar 20 (PCV20) Unknown Completed [facility] Fluad (aIIV4) - SDS - 0.5mL Fluad (aIIV4) - SDS - 0.5mL Unknown Completed [facility] COVID-19 Vaccine (Naveen) COVID-19 Vaccine (Naveen) Unknown Completed [facility] Afluria (IIV4) - 3 years and older - SDS - 0.5mL Afluria (IIV4) - 3 years and older - SDS - 0.5mL Unknown Completed [facility] Flucelvax (ccIIV4) - MDV - 0.5mL Flucelvax (ccIIV4) - MDV - 0.5mL Unknown Completed [facility] Afluria Afluria Unknown Completed [facility] Flucelvax (ccIIV4) - SDS - 0.5mL Flucelvax (ccIIV4) - SDS - 0.5mL Unknown Completed [facility] Adacel (Tdap) Adacel (Tdap) Unknown Completed [facility] Prevnar 20 (PCV20) Prevnar 20 (PCV20) Unknown Completed [facility] Fluad (aIIV4) - SDS - 0.5mL Fluad (aIIV4) - SDS - 0.5mL Unknown Completed [facility] COVID-19 Vaccine (Naveen) COVID-19 Vaccine (Naveen) Unknown Completed [facility] Afluria (IIV4) - 3 years and older - SDS - 0.5mL Afluria (IIV4) - 3 years and older - SDS - 0.5mL Unknown Completed [facility] Flucelvax (ccIIV4) - MDV - 0.5mL Flucelvax (ccIIV4) - MDV - 0.5mL Unknown Completed [facility] Afluria Afluria Unknown Completed [facility] Flucelvax (ccIIV4) - SDS - 0.5mL Flucelvax (ccIIV4) - SDS - 0.5mL Unknown Completed [facility] Adacel (Tdap) Adacel (Tdap) Unknown Completed [facility] Prevnar 20 (PCV20) Prevnar 20 (PCV20) Unknown Completed [facility] Fluad (aIIV4) - SDS - 0.5mL Fluad (aIIV4) - SDS - 0.5mL Unknown Completed [facility] COVID-19 Vaccine (Naveen) COVID-19 Vaccine (Naveen) Unknown Completed [facility] Afluria (IIV4) - 3 years and older - SDS - 0.5mL Afluria (IIV4) - 3 years and older - SDS - 0.5mL Unknown Completed [facility] Flucelvax (ccIIV4) - MDV - 0.5mL Flucelvax (ccIIV4) - MDV - 0.5mL Unknown Completed [facility] Afluria Afluria Unknown Completed [facility] Flucelvax (ccIIV4) - SDS - 0.5mL Flucelvax (ccIIV4) - SDS - 0.5mL Unknown Completed [facility] Adacel (Tdap) Adacel (Tdap) Unknown Completed [facility] Prevnar 20 (PCV20) Prevnar 20 (PCV20) Unknown Completed [facility] Fluad (aIIV4) - SDS - 0.5mL Fluad (aIIV4) - SDS - 0.5mL Unknown Completed [facility] COVID-19 Vaccine (Naveen) COVID-19 Vaccine (Naveen) Unknown Completed [facility] Afluria (IIV4) - 3 years and older - SDS - 0.5mL Afluria (IIV4) - 3 years and older - SDS - 0.5mL Unknown Completed [facility] Flucelvax (ccIIV4) - MDV - 0.5mL Flucelvax (ccIIV4) - MDV - 0.5mL Unknown Completed [facility] Afluria Afluria Unknown Completed [facility] Flucelvax (ccIIV4) - SDS - 0.5mL Flucelvax (ccIIV4) - SDS - 0.5mL Unknown Completed [facility] Adacel (Tdap) Adacel (Tdap) Unknown Completed [facility] Prevnar 20 (PCV20) Prevnar 20 (PCV20) Unknown Completed [facility] Fluad (aIIV4) - SDS - 0.5mL Fluad (aIIV4) - SDS - 0.5mL Unknown Completed [facility] COVID-19 Vaccine (Naveen) COVID-19 Vaccine (Naveen) Unknown Completed [facility] Afluria (IIV4) - 3 years and older - SDS - 0.5mL Afluria (IIV4) - 3 years and older - SDS - 0.5mL Unknown Completed [facility] Flucelvax (ccIIV4) - MDV - 0.5mL Flucelvax (ccIIV4) - MDV - 0.5mL Unknown Completed [facility] Afluria Afluria Unknown Completed [facility] Flucelvax (ccIIV4) - SDS - 0.5mL Flucelvax (ccIIV4) - SDS - 0.5mL Unknown Completed [facility] Adacel (Tdap) Adacel (Tdap) Unknown Completed [facility] Fluad (IIV) - SDS - 0.5mL Fluad (IIV) - SDS - 0.5mL Unknown Completed [facility] Vital Signs Vital Name Observation Time Observation Value Comments S ource height 2024-08-14 09:45:00 71 [in_i] Commo n [facility] weight 2024-08-14 09:45:00 177.4 [lb_av] Co mmon [facility] temperature 2024-08-14 09:45:00 98 [degF] Comm on [facility] bmi 2024-08-14 09:45:00 24.74 kg/m2 Comm on [facility] oximetry 2024-08-14 09:45:00 99 % Commo n [facility] respiratory rate 2024-08-14 09:45:00 16 /min Common [facility] blood pressure systolic 2024-08-14 09:45:00 138 mm[Hg[facility] pressure diastolic 2024-08-14 09:45:00 88 mm[Hg] [facility] height 2024-03-16 09:30:00 71 [in_i] Commo n [facility] weight 2024-03-16 09:30:00 171 [lb_av] Comm on [facility] temperature 2024-03-16 09:30:00 97.6 [degF] Com [facility] bmi 2024-03-16 09:30:00 23.85 kg/m2 Comm on [facility] oximetry 2024-03-16 09:30:00 98 % Commo n [facility] respiratory rate 2024-03-16 09:30:00 18 /min Common [facility] blood pressure systolic 2024-03-16 09:30:00 134 mm[Hg] [facility] blood pressure diastolic 2024-03-16 09:30:00 77 mm[Hg] [facility] height 2024-03-16 09:45:00 71 [in_i] Commo n [facility] weight 2024-03-16 09:45:00 171 [lb_av] Comm on [facility] temperature 2024-03-16 09:45:00 97.6 [degF] Com [facility] bmi 2024-03-16 09:45:00 23.85 kg/m2 Comm on [facility] oximetry 2024-03-16 09:45:00 98 % Commo n [facility] blood pressure systolic 2024-03-16 09:45:00 134 mm[Hg] Common [facility] blood pressure diastolic 2024-03-16 09:45:00 77 mm[Hg] [facility] height 2023-10-10 08:30:00 71 [in_i] Commo n [facility] weight 2023-10-10 08:30:00 166 [lb_av] Comm on [facility] temperature 2023-10-10 08:30:00 97.7 [degF] Com mon [facility] bmi 2023-10-10 08:30:00 23.15 kg/m2 Comm on [facility] oximetry 2023-10-10 08:30:00 99 % Commo n [facility] blood pressure systolic 2023-10-10 08:30:00 139 mm[Hg] [facility] blood pressure diastolic 2023-10-10 08:30:00 72 mm[Hg] [facility] height 2023-10-10 08:30:00 71 [in_i] Commo n [facility] weight 2023-10-10 08:30:00 166 [lb_av] Comm on [facility] temperature 2023-10-10 08:30:00 97.7 [degF] Com mon [facility] bmi 2023-10-10 08:30:00 23.15 kg/m2 Comm on [facility] oximetry 2023-10-10 08:30:00 99 % Commo n [facility] blood pressure systolic 2023-10-10 08:30:00 139 mm[Hg] Common [facility] blood pressure diastolic 2023-10-10 08:30:00 72 mm[Hg] [facility] height 2023-06-06 15:20:00 71 [in_i] Commo n [facility] weight 2023-06-06 15:20:00 168.8 [lb_av] Co mmon [facility] temperature 2023-06-06 15:20:00 98.0 [degF] Com [facility] bmi 2023-06-06 15:20:00 23.54 kg/m2 Comm on [facility] oximetry 2023-06-06 15:20:00 98 % Commo n [facility] respiratory rate 2023-06-06 15:20:00 18 /min Common [facility] blood pressure systolic 2023-06-06 15:20:00 132 mm[Hg] [facility] blood pressure diastolic 2023-06-06 15:20:00 70 mm[Hg] [facility] height 2023-03-15 15:10:00 71 [in_i] Commo n [facility] weight 2023-03-15 15:10:00 172.6 [lb_av] Co [facility] temperature 2023-03-15 15:10:00 98.2 [degF] Com [facility] bmi 2023-03-15 15:10:00 24.07 kg/m2 Comm on [facility] oximetry 2023-03-15 15:10:00 95 % Commo n [facility] blood pressure systolic 2023-03-15 15:10:00 138 mm[Hg] [facility] blood pressure diastolic 2023-03-15 15:10:00 70 mm[Hg] Common [facility] height 2023-03-15 15:20:00 71 [in_i] Commo n [facility] weight 2023-03-15 15:20:00 172.6 [lb_av] Co [facility] temperature 2023-03-15 15:20:00 98.2 [degF] Com [facility] bmi 2023-03-15 15:20:00 24.07 kg/m2 Comm on [facility] oximetry 2023-03-15 15:20:00 95 % Commo n [facility] blood pressure systolic 2023-03-15 15:20:00 138 mm[Hg] Common [facility] blood pressure diastolic 2023-03-15 15:20:00 70 mm[Hg] [facility] height 2022-09-27 14:20:00 71 [in_i] Commo n [facility] weight 2022-09-27 14:20:00 167.0 [lb_av] Co mmon [facility] temperature 2022-09-27 14:20:00 98.0 [degF] Com mon [facility] bmi 2022-09-27 14:20:00 23.29 kg/m2 Comm on [facility] oximetry 2022-09-27 14:20:00 96 % Commo n [facility] respiratory rate 2022-09-27 14:20:00 17 /min [facility] blood pressure systolic 2022-09-27 14:20:00 138 mm[Hg] [facility] blood pressure diastolic 2022-09-27 14:20:00 70 mm[Hg] Common [facility] height 2022-04-27 13:20:00 71 [in_i] Commo n [facility] weight 2022-04-27 13:20:00 173.2 [lb_av] Co mmon [facility] temperature 2022-04-27 13:20:00 97.3 [degF] Com mon [facility] bmi 2022-04-27 13:20:00 24.15 kg/m2 Comm on [facility] oximetry 2022-04-27 13:20:00 99 % Commo n [facility] respiratory rate 2022-04-27 13:20:00 18 /min [facility] blood pressure systolic 2022-04-27 13:20:00 128 mm[Hg] [facility] blood pressure diastolic 2022-04-27 13:20:00 72 mm[Hg] [facility] height 2021-11-12 10:50:00 71 [in_i] Commo n [facility] weight 2021-11-12 10:50:00 179 [lb_av] Comm on [facility] temperature 2021-11-12 10:50:00 97.6 [degF] Com mon [facility] bmi 2021-11-12 10:50:00 24.96 kg/m2 Comm on [facility] oximetry 2021-11-12 10:50:00 99 % Commo n [facility] respiratory rate 2021-11-12 10:50:00 16 /min [facility] blood pressure systolic 2021-11-12 10:50:00 136 mm[Hg] [facility] blood pressure diastolic 2021-11-12 10:50:00 69 mm[Hg] [facility] height 2021-08-14 09:50:00 71 [in_i] Commo n [facility] weight 2021-08-14 09:50:00 181.2 [lb_av] Co mmon [facility] temperature 2021-08-14 09:50:00 97.5 [degF] Com mon [facility] bmi 2021-08-14 09:50:00 25.27 kg/m2 Comm on [facility] oximetry 2021-08-14 09:50:00 100 % Commo n [facility] respiratory rate 2021-08-14 09:50:00 18 /min Common [facility] blood pressure systolic 2021-08-14 09:50:00 135 mm[Hg] [facility] blood pressure diastolic 2021-08-14 09:50:00 72 mm[Hg] [facility] height 2021-02-10 14:30:00 71 [in_i] Commo n [facility] weight 2021-02-10 14:30:00 178.9 [lb_av] Co mmon [facility] temperature 2021-02-10 14:30:00 97.3 [degF] Com mon [facility] bmi 2021-02-10 14:30:00 24.95 kg/m2 Comm on [facility] oximetry 2021-02-10 14:30:00 99 % Commo n [facility] respiratory rate 2021-02-10 14:30:00 17 /min [facility] blood pressure systolic 2021-02-10 14:30:00 128 mm[Hg] [facility] blood pressure diastolic 2021-02-10 14:30:00 85 mm[Hg] [facility] Encounters Start Date/Time End Date/Time Encounter Type Admission Type Attending [facility] Care Department Encounter ID Source 2024-03-14 13:41:00 Outpatient Richter, [facility] [id number] [facility] 2023-10-10 08:22:00 Outpatient Richter, [facility] [id number] [facility] 2023-03-14 13:56:00 Outpatient Richter, [facility] [id number] [facility] 2022-09-27 14:15:00 Outpatient Richter, [place] [facility] [id number] [facility] 2022-09-23 13:58:00 [facility] [id number] [facility] 2022-08-19 09:00:00 Outpatient Richter, Rocky [facility] [id number] [facility] 2022-02-10 09:20:01 Outpatient Richter, [place] [facility] STL[facility] [id number] [facility] 2021-09-17 14:25:00 Outpatient Richter, Rocky [facility] STL[facility]C [id number] [facility] 2021-04-01 13:27:44 Outpatient Richter, [place] [facility] STL[facility] [id number] [facility] 2021-04-01 12:43:53 Outpatient Richter, Rocky [facility] STL[facility] [id number] [facility] 2021-04-01 12:33:03 Outpatient Richter, Rocky [facility] STL[facility]C [id number] [facility] 2021-04-01 12:13:11 Outpatient Richtre, Rocky [facility] ST[facility] [id number] [facility] 2021-04-01 12:12:20 Outpatient Richter, Rocky [facility] [id number] [facility] 2021-04-01 12:08:00 Outpatient Richter, [place] [facility] [id number] [facility] 2021-04-01 11:19:27 Outpatient Richter, [place] [facility] [id number] [facility] 2021-04-01 11:18:34 Outpatient Richter, Rocky [facility] STL[facility] [id number] [facility] 2021-04-01 11:18:09 Outpatient Richter, Rocky [facility] STL[facility] [id number] [facility] 2021-04-01 11:03:20 Outpatient Richter, [place] [facility] [id number] [facility] 2021-04-01 11:01:56 Outpatient Richter, [place] [facility] STL[facility]C [id number] [facility] 2021-04-01 10:59:52 Outpatient Richter, [place] [facility] STL[facility]C [id number] [facility] 2024-08-14 00:00:00 2024-08-14 00:00:00 OFFICE VISIT ESTAB PT LEVEL 4 STLMLC STLMLC [id number] [facility] 2024-03-16 00:00:00 2024-03-16 00:00:00 OFFICE VISIT ESTAB PT LEVEL 4 STLMLC STLMLC [id number] [facility] 2024-03-16 00:00:00 2024-03-16 00:00:00 INIT ANNUAL [facility] WELLNESS VISIT STLMLC STLMLC [id number] [facility] 2023-10-10 00:00:00 2023-10-10 00:00:00 OFFICE VISIT ESTAB PT LEVEL 4 STLMLC STLMLC [id number] [facility] 2023-10-07 00:00:00 2023-10-07 00:00:00 (TEL) STLMLC STLMLC [id number] [facility] 2023-06-10 00:00:00 2023-06-10 00:00:00 (TEL) STLMLC STLMLC [id number] [facility] 2023-06-06 00:00:00 2023-06-06 00:00:00 OFFICE VISIT ESTAB PT LEVEL 4 STLMLC STLMLC [id number] [facility] 2023-03-15 00:00:00 2023-03-15 00:00:00 OFFICE VISIT ESTAB PT LEVEL 4 STLMLC STLMLC [id number] [facility] 2023-03-15 00:00:00 2023-03-15 00:00:00 WELCOME TO MEDICARE PREV PHY EXAM STLMLC STLMLC [id number] [facility] 2023-02-09 00:00:00 2023-02-09 00:00:00 (TEL) STLMLC STLMLC [id number] [facility] 2023-02-07 00:00:00 2023-02-07 00:00:00 (TEL) STLMLC STLMLC [id number] [facility] 2022-10-11 00:00:00 2022-10-11 00:00:00 (TEL) STLMLC STLMLC [id number] [facility] 2022-09-27 00:00:00 2022-09-27 00:00:00 (TEL) STLMLC STLMLC [id number] [facility] 2022-09-27 00:00:00 2022-09-27 00:00:00 (HOSP F/U) Hospital Follow Up STLMLC STLMLC [id number] [facility] 2022-08-12 00:00:00 2022-08-12 00:00:00 (TEL) STLMLC STLMLC [id number] [facility] 2022-05-12 00:00:00 2022-05-12 00:00:00 (TEL) STLMLC STLMLC [id number] [facility] 2022-05-05 00:00:00 2022-05-05 00:00:00 (TEL) STLMLC STLMLC [id number] [facility] 2022-04-27 00:00:00 2022-04-27 00:00:00 OFFICE VISIT ESTAB PT LEVEL 4 STLMLC STLMLC [id number] [facility] 2022-02-11 00:00:00 2022-02-11 00:00:00 (TEL) STLMLC STLMLC [id number] [facility] 2021-11-12 00:00:00 2021-11-12 00:00:00 PREV VISIT EST AGE 40-64 STLMLC STLMLC [id number] [facility] 2021-08-14 00:00:00 2021-08-14 00:00:00 OFFICE VISIT ESTAB PT LEVEL 4 STLMLC STLMLC [id number] [facility] 2021-08-06 00:00:00 2021-08-06 00:00:00 (TEL) STLMLC STLMLC [id number] [facility] 2021-02-10 00:00:00 2021-02-10 00:00:00 OFFICE VISIT ESTAB PT LEVEL 4 STLMLC STLMLC [id number] [facility] 2020-09-23 00:00:00 2020-09-23 00:00:00 Outpatient STLMLC STLMLC [id number] [facility] 2020-05-28 00:00:00 2020-05-28 00:00:00 Outpatient STLMLC STLMLC [id number] [facility] 2020-05-27 00:00:00 2020-05-27 00:00:00 Outpatient STLMLC STLMLC [id number] [facility] 2020-04-30 00:00:00 2020-04-30 00:00:00 Outpatient STLMLC STLMLC [id number] [facility] 2020-02-18 00:00:00 2020-02-18 00:00:00 Outpatient STLMLC STLMLC [id number] [facility] 2020-02-15 00:00:00 2020-02-15 00:00:00 Outpatient STLMLC STLMLC [id number] [facility] 2019-10-25 11:00:00 2019-10-25 11:00:[address] [facility] [facility] [id number] [facility] 2019-09-12 13:02:00 2019-09-12 13:02:00 [facility] [id number] [facility] 2019-08-17 10:00:00 2019-08-17 10:00:00 [facility] [id number] [facility] 2019-07-24 15:08:00 2019-07-24 15:08:00 [facility] [id number] [facility] 2019-07-13 10:33:00 2019-07-13 10:33:[address] [facility] [facility] [id number] [facility] 2019-07-09 08:00:00 2019-07-09 08:00:[address] [facility] [id number] [facility] 2019-04-02 16:24:00 2019-04-02 16:24:[address] [facility] [facility] [id number] [facility] 2019-04-02 09:45:00 2019-04-02 09:45:[address] [facility] [id number] [facility] 2019-03-19 09:00:00 2019-03-19 09:00:00 [facility] [id number] [facility] 2018-12-25 10:00:00 2018-12-25 10:00:00 [facility] [id number] [facility] 2018-09-26 14:45:00 2018-09-26 14:45:[address] [facility] [id number] [facility] 2018-07-12 14:45:00 2018-07-12 14:45:00 [facility] [id number] [facility] 2018-06-12 14:45:00 2018-06-12 14:45:[address] [facility] [facility] [id number] [facility] 2018-05-08 09:00:00 2018-05-08 09:00:00 [facility] [id number] [facility] 2017-08-15 08:30:00 2017-08-15 08:30:00 [facility] [id number] [facility] 2017-06-14 11:00:00 2017-06-14 11:00:00 Outpatient [facility] [id number] [facility] Results Test Description Test Time Test Comments Results Result Co mments Source CBC W/AUTO [id number] 00:00:00* Test Item Value Reference Range Interpretation Comme nts NUCLEATED RBCS (test code = 44649-6) 0.0 /100 WBC'S See_Comment [Automated messa ge] The system which generated this result transmitted reference range: 0.0 /100 WBC'S. The reference range was not used to interpret this result as normal/abnormal. ABSOLUTE EOSINOPHILS (test code = 76804-2) 0.57 K/UL See_Comment H [Automated messa ge] The system which generated this result transmitted reference range: 0.00-0.50 K/UL. The reference range was not used to interpret this result as normal/abnormal. ABSOLUTE LYMPHOCYTES (test code = 11632-8) 3.43 K/UL See_Comment [Automated messa ge] The system which generated this result transmitted reference range: 1.00-4.00 K/UL. The reference range was not used to interpret this result as normal/abnormal. ABSOLUTE MONOCYTES (test code = 04988-9) 0.61 K/UL See_Comment [Automated messa ge] The system which generated this result transmitted reference range: 0.20-1.00 K/UL. The reference range was not used to interpret this result as normal/abnormal. ABSOLUTE NEUTROPHILS (test code = 78640-1) 4.00 K/UL See_Comment [Automated messa ge] The system which generated this result transmitted reference range: 1.50-7.50 K/UL. The reference range was not used to interpret this result as normal/abnormal. BASOPHILS (test code = 70650-2) 0.7 % COMMENTS (test code = 85159-6) (NOTE) EOSINOPHILS (test code = 38674-4) 6.6 % HEMATOCRIT (test code = 50723-2) 47.5 % See_Comment [Automated messa ge] The [...] result as normal/abnormal. LYMPHOCYTES (test code = 44667-3) 39.5 % MCH (test code = 72035-8) 32.0 PG See_Comment [Automated messa ge] The system which generated this result transmitted reference range: 25.0-33.0 PG. The reference range was not used to interpret this result as normal/abnormal. MCHC (test code = 00574-7) 34.5 G/DL See_Comment [Automated messa ge] The system which generated this result transmitted reference range: 31.0-36.0 G/DL. The reference range was not used to interpret this result as normal/abnormal. MCV (test code = 53153-8) 92.8 fL See_Comment [Automated messa ge] The system which generated this result transmitted reference range: 80.0-99.0 fL. The reference range was not used to interpret this result as normal/abnormal. MONOCYTES (test code = 49797-5) 7.0 % NEUTROPHILS (test code = 26813-6) 46.0 % PLATELET COUNT (test code = 31557-7) 76 K/UL See_Comment L [Automated messa ge] The system which generated this result transmitted reference range: 130-400 K/UL. The reference range was not used to interpret this result as normal/abnormal. RBC (test code = 65259-6) 5.12 M/UL See_Comment [Automated messa ge] The system which generated this result transmitted reference range: 4.50-6.10 M/UL. The reference range was not used to interpret this result as normal/abnormal. RDW (test code = 67235-7) 13.4 % See_Comment [Automated messa ge] The system which generated this result transmitted reference range: 11.5-15.0 %. The reference range was not used to interpret this result as normal/abnormal. WBC (test code = 73388-7) 8.7 K/UL See_Comment [Automated messa ge] The system which generated this result transmitted reference range: 3.5-11.0 K/UL. The reference range was not used to interpret this result as normal/abnormal. HEMOGLOBIN [id number] 00:00:00* Test Item Value Reference Range Interpretation Comme nts HEMOGLOBIN A1c (test code = 4548-4) 5.8 % See_Comment H [Automated [employer] ge] The system which generated this result transmitted reference range: 4.2-5.6 %. The reference range was not used to interpret this result as normal/abnormal.
[2024-10-30 16:18] LABS: Absolute Lymphocytes (CBC) 2.7 K/uL (0.7-4.9); Hematocrit 40.5 % (39.6-49.0); Hemoglobin 14.0 g/dL (13.6-17.9); MCH 31.8 pg (27.0-35.0); MCHC 34.6 g/dL (32.0-36.0); MCV 91.9 fL (80-100); MPV 6.4 fL (7.6-11.3); Nucleated RBC Absolute Count 0.0 (0-0); Nucleated Red Blood Cells % 0.0 % (0-0); RBC Red Blood Cell Count 4.41 M/uL (4.33-5.43); White Blood Count 10.10 thou/uL (4.3-10.9)
[2024-10-30 16:33] LABS: Influenza A Ag Negative; Influenza B Ag Negative; SARS-CoV-2 Antigen Rapid Res Negative (Negative)
[2024-10-30] MEDS ORDERED: METHYLPREDNISOLONE 125 MG INJ ONE (16:38)
[2024-10-30] MEDS ORDERED: LEVALBUTEROL 1.25 MG/3 ML NEB ONE (16:38)
[2024-10-30] MEDS ORDERED: ONDANSETRON 4 MG/2 ML VIAL ONE (16:38)
[2024-10-30 16:43] LABS: ALT/SGPT 50.0 U/L (16-61); AST/SGOT 26.0 U/L (15-37); Albumin 4.0 g/dL (3.4-5.0); Albumin/Globulin Ratio 1.3 (1.1-1.8); Alkaline Phosphatase 51.0 U/L (45-117); Anion Gap 8.9 mEq/L (5.0-15.0); BUN Blood Urea Nitrogen 7.0 mg/dL (7-18); Bilirubin Indirect, Calculated 0.9 mg/dL (0.2-0.8); Globulin 3.2 g/dL (2.3-3.5); Glucose Level 129.0 mg/dL (74-106); NT PRO-BNP 39.0 pg/mL (<125); Potassium 3.9 mEq/L (3.5-5.1); Troponin High Sensitivity 4.4 pg/mL (<58.9)
--- NOTE | 2024-10-30 16:46 | RAD REPORT ---
EXAMINATION: CT ABDOMEN AND PELVIS WITHOUT CONTRAST CLINICAL INDICATION: Abdominal pain. Nausea TECHNIQUE: CT abdomen and pelvis was performed, as per department protocol. IV contrast and oral was not administered.Axial, sagittal and coronal reconstructions were obtained. One or more of the following dose reduction techniques were used: Automated exposure control, adjustment of the mA and/o r kV according to the patient size, and/or iterative reconstruction. Unless otherwise specified, incidental findings do not require dedicated imaging follow-up. [id number].. Oral contrast given COMPARISON: No prior exam. FINDINGS: The lack of intravenous contrast limits evaluation of solid organs and vessels. Oral contrast was giv en The liver, spleen, pancreas, adrenals and kidneys appear grossly normal No evidence of diverticulitis Prostate gland mildly to moderately enlarged The appendix is not clearly seen. IMPRESSION: No acute abnormality displayed
--- NOTE | 2024-10-30 16:51 | RAD REPORT ---
Procedure: Chest Single View HISTORY: Shortness of breath COMPARISON: 2022 FINDINGS: The lungs appear clear of acute infiltrate. No significant pleural effusion noted. The heart is normal size. IMPRESSION: No acute abnormality is displayed.
--- NOTE | 2024-10-30 18:04 | RAD REPORT ---
EXAM: Abdominal exam Limited ultrasound CLINICAL HISTORY: Abdominal pain COMPARISON: None FINDINGS: A gallstone is not seen. Gallbladder wall not thickened. Biliary tree normal caliber IMPRESSION: No significant abnormalities displayed
--- NOTE | 2024-10-30 18:10 | EDPHYS ---
Physician Documentation [facility] Name: Joel Romano Age: 69 yrs Sex: Male : 1955 Arrival Date: 10/30/2024 Time: 16:03 Bed 19 Private MD: ED Physician Escobar Aguirre HPI: 10/30 17:11 This 69 yrs old Male presents to ER via EMS with complaints of Shortness Of rn Breath. 17:11 The patient has shortness of breath with light activity. Onset: The symptoms/episode rn began/occurred just prior to arrival. Duration: The symptoms are intermittent. The patient's shortness of breath is aggravated by coughing, is alleviated by nothing. Severity of symptoms: At their worst the symptoms were mild in the emergency department the symptoms have improved. The patient has experienced similar episodes in the past. Patient reports was having nausea earlier today, improved with Pepto-Bismol. Later in the day began with nonproductive cough associated with shortness of breath. Patient has COPD. Denies any fever or chills. No blood in stool. No vomiting. No hematemesis. No chest pain. Patient states overall feeling much better without intervention by EMS.. Historical: - Allergies: 16:06 Eggs; jb4 16:06 preservitives; jb4 16:06 Wheat/glutens; jb4 - PMHx: 16:06 GERD; Hyperlipidemia; Hypertension; COPD; jb4 - Family history:: not pertinent. - Hospitalizations: : No recent hospitalization is reported. ROS: 17:11 Constitutional: Negative for fever, chills, and weight loss, Cardiovascular: Negative rn for chest pain, palpitations, and edema, Respiratory: Positive for shortness of breath and cough Abdomen/GI: Negative for abdominal pain, positive for nausea MS/Extremity: Negative for injury and deformity, Skin: Negative for injury, rash, and discoloration, Neuro: Negative for headache, weakness, numbness, tingling, and seizure, Exam: 17:11 Constitutional: This is a well developed, well nourished patient who is awake, alert, rn mild tachypnea Cardiovascular: Regular rate and rhythm. No pulse deficits. Respiratory: Mild tachypnea, faint wheezing bilaterally, no retractions Abdomen/GI: Soft, nontender, no masses 18:21 ECG was reviewed by the Attending Physician. rn Vital Signs: 16:10 BP 161 / 84; Pulse 72; Resp 16; Temp 97.5(O); Pulse Ox 97% on 2 lpm NC; Weight 78.02 jb4 kg; Height 5 ft. 10 in. ; 17:12 BP 149 / 80; Pulse 67; Resp 20; Pulse Ox 96% on R/A; jb4 18:30 Pulse 72; Resp 18; Pulse Ox 98% on R/A; jb4 16:10 Body Mass Index 24.68 (78.02 kg, 177.8 cm) jb4 MDM: 16:05 Medical Screening Exam initiated rn 18:08 Differential diagnosis: Anemia Anxiety Reaction Chronic Obstructive Pulmonary Disease rn pneumonia, Pneumothorax Viral illness. Data reviewed: vital signs, nurses notes, lab test result(s), radiologic studies, CT scan, plain films, and as a result, I will discharge patient. Independent interpretation of the following test(s) in the Emergency Department X-Ray: My interpretation is Chest x-ray images negative for pneumonia or pneumothorax per my interpretation. CT Scan: My interpretation is CT abdomen pelvis images negative for pneumoperitoneum or acute process per my interpretation. Counseling: I had a detailed discussion with the patient and/or guardian regarding the historical points, exam findings, and any diagnostic results supporting the discharge/admit diagnosis, lab results, radiology results, the need for outpatient follow up, to return to the emergency department if symptoms worsen or persist or if there are any questions or concerns that arise at home. Response to treatment: the patient's symptoms have markedly improved after treatment, and as a result, I will discharge patient. Special discussion: I discussed with the patient/guardian in detail that at this point there is no indication for admission to the hospital. It is understood, however, that if the symptoms persist or worsen the patient needs to return immediately for re-evaluation. ED course: No acute findings and workup. Patient at minimum has COPD exacerbation. Will discharge home with steroids, already has inhaler. Will discharge home with antibiotics and as needed nausea medication. CT abdomen pelvis negative for acute findings. I have personally reviewed all of the results, including but not limited to blood tests and imaging deemed necessary to safely discharge this patient at this time. All results given to and printed out for patient. I personally went over all the results with the patient and answered all questions. Patient will follow-up with PCP and or specialist as discussed. Return precautions given and understood.. 10/30 16:06 Order name: Basic Metabolic Panel; Complete Time: 16:57 rn 10/30 16:06 Order name: CBC with Diff; Complete Time: 16:57 rn 10/30 16:06 Order name: NT PRO-BNP; Complete Time: 16:57 rn 10/30 16:06 Order name: Troponin HS; Complete Time: 16:57 rn 10/30 16:06 Order name: COVID-19 Ag + Flu A+B Ag; Complete Time: 16:57 rn 10/30 16:06 Order name: LFT's; Complete Time: 16:57 rn 10/30 16:06 Order name: XRAY Chest (1 view); Complete Time: 16:57 rn 10/30 16:06 Order name: CT Abd/Pelvis - Without Contrast; Complete Time: 16:57 rn 10/30 16:58 Order name: US Abdomen Limited; Complete Time: 18:07 rn 10/30 16:06 Order name: EKG; Complete Time: 16:06 rn 10/30 16:06 Order name: Cardiac monitoring; Complete Time: 16:13 rn 10/30 16:06 Order name: EKG - Nurse/Tech; Complete Time: 16:45 rn 10/30 16:06 Order name: IV Saline Lock; Complete Time: 16:13 rn 10/30 16:06 Order name: Labs collected and sent; Complete Time: 16:13 rn 10/30 16:06 Order name: O2 Per Protocol; Complete Time: 16:13 rn 10/30 16:06 Order name: O2 Sat Monitoring; Complete Time: 16:13 rn EC:21 Rate is 70 beats/min. Rhythm is regular. QRS [place] is Normal. CO interval is normal. QRS rn interval is normal. QT interval is normal. No Q waves. T waves are Normal. No ST changes noted. Clinical impression: Normal ECG. Interpreted by me. Reviewed by me. Administered Medications: 16:56 Drug: Ondansetron IVP 4 mg IVP once; over 2 minutes Route: IVP; Site: right antecubital;jb4 17:13 Follow up: Response: No adverse reaction jb4 16:56 Drug: Levalbuterol Inhalation 1.25 mg Inhalation once Route: Inhalation; jb4 17:12 Follow up: Response: No adverse reaction; Marked relief of symptoms; Wheezing diminishedjb4 16:56 Drug: MethylPrednisoLONE IVP 125 mg IVP once Route: IVP; Site: right antecubital; jb4 17:13 Follow up: Response: No adverse reaction jb4 18:55 Drug: Amoxicillin-Clavulanate PO 875 mg PO once Route: PO; jb4 18:55 Follow up: Response: No adverse reaction; Marked relief of symptoms jb4 Disposition Summary: 10/30/24 18:09 Discharge Ordered Notes: Location: Home rn Problem: new rn Symptoms: have improved rn Condition: Stable rn Diagnosis - COPD/ Chronic obstructive pulmonary disease with (acute) exacerbation rn - Nausea rn Followup: rn - With: Private Physician - When: As needed - Reason: Recheck today's complaints, Re-evaluation by your physician Discharge Instructions: - Discharge Summary Sheet rn - Nausea, Adult rn - Chronic Obstructive Pulmonary Disease Exacerbation rn Forms: - Medication Reconciliation Form rn - Antibiotic international broadcast music librarian - Prescription Opioid Use rn - Patient Portal Instructions rn - Leadership Thank You Letter rn Prescriptions: - ondansetron 4 mg Oral Tablet,disintegrating - take 1 tablet ORAL route every 8 hours As needed as needed for nausea and rn vomiting; 12 tablet; Refills: 0, Product Selection Permitted - Augmentin 875-125 mg Oral Tablet - take 1 tablet ORAL route every 12 hours for 10 days; 20 tablet; Refills: 0, rn Product Selection Permitted - Prednisone 20 mg Oral Tablet - take 3 tablets ORAL route once daily for 5 days; 15 tablet; Refills: 0, Product rn Selection Permitted Signatures: Dispatcher [employer] EDMS Escobar Aguirre MD MD rn Bryson, James, RN RN jb4 Corrections: (The following items were deleted from the chart) 16:06 16:06 BASIC METABOLIC PANEL+C.LAB.BRZ ordered. EDMS EDMS 16:06 16:06 CBC+H.LAB.BRZ ordered. EDMS EDMS 16:06 16:06 PROBNP+C.LAB.BRZ ordered. EDMS EDMS 16:06 16:06 Troponin High Sensitivity+C.LAB.BRZ ordered. EDMS EDMS 16:07 16:07 Abdomen Pelvis Wo Con+CT.RAD.BRZ ordered. EDMS EDMS
--- NOTE | 2024-10-30 18:10 | ER ---
Nurse's Notes [facility] Name: Joel Romano Age: 69 yrs Sex: Male : 1955 Arrival Date: 10/30/2024 Time: 16:03 Bed 19 Private MD: Diagnosis: COPD/ Chronic obstructive pulmonary disease with (acute) exacerbation;Nausea Presentation: 10/30 16:05 Chief complaint: EMS states: Pt reports SOB that started 20 minutes ago. [place] nauseous jb4 since last night, took Pepto-Bismol and now feels better. Reports lower rib pain. 16:06 Coronavirus screen: At this time, the client does not indicate any symptoms associated jb4 with coronavirus-19. Ebola Screen: No symptoms or risks identified at this time. Initial Sepsis Screen: Does the patient meet any 2 criteria? No. Patient's initial sepsis screen is negative. Does the patient have a suspected source of infection? No. Patient's initial sepsis screen is negative. Risk Assessment: Do you want to hurt yourself or someone else? Patient reports no desire to harm self or others. Onset of symptoms was October 30, 2024. Transition of care: patient was not received from another setting of care. 16:06 Method Of Arrival: EMS: [facility] jb4 16:06 Acuity: LEV 3 jb4 Historical: - Allergies: 16:06 Eggs; jb4 16:06 preservitives; jb4 16:06 Wheat/glutens; jb4 - PMHx: 16:06 GERD; Hyperlipidemia; Hypertension; COPD; jb4 - Family history:: not pertinent. - Hospitalizations: : No recent hospitalization is reported. Screenin:11 [facility] ED Fall Risk Assessment (Adult) History of falling in the last 3 months, jb4 including since admission No falls in past 3 months (0 pts) Confusion or Disorientation No (0 pts) Intoxicated or Sedated No (0 pts) Impaired Gait No (0 pts) Mobility Assist Device Used No (0 pt) Altered Elimination No (0 pt) Score/Fall Risk Level 0 - 2 = Low Risk Oriented to surroundings, Maintained a safe environment. Abuse screen: Denies threats or abuse. Nutritional screening: No deficits noted. Tuberculosis screening: No symptoms or risk factors identified. Assessment: 16:06 General: Appears in no apparent distress. uncomfortable, Behavior is calm, cooperative, jb4 appropriate for age. Pain: Denies pain. Neuro: Level of Consciousness is awake, alert, obeys commands, Oriented to person, place, time, situation. Cardiovascular: Patient's skin is warm and dry. Respiratory: Airway is patent Respiratory effort is even, labored, Respiratory pattern is regular, symmetrical, Breath sounds with wheezes. Derm: Skin is intact, Skin is pink, warm \T\ dry. Musculoskeletal: Circulation, motion, and sensation intact. Range of motion: intact in all extremities. 16:06 Reassessment: Patient appears in no apparent distress at this time. Patient and/or jb4 family updated on plan of care and expected duration. Pain level reassessed. Patient is alert, oriented x 3, equal unlabored respirations, skin warm/dry/pink. Patient states feeling better. Patient states symptoms have improved. Respiratory: Airway is patent Respiratory effort is even, unlabored, Respiratory pattern is regular, symmetrical, Breath sounds are clear bilaterally. 17:00 Reassessment: Patient appears in no apparent distress at this time. Patient and/or jb4 family updated on plan of care and expected duration. Pain level reassessed. Patient is alert, oriented x 3, equal unlabored respirations, skin warm/dry/pink. 18:00 Reassessment: Patient appears in no apparent distress at this time. Patient and/or jb4 family updated on plan of care and expected duration. Pain level reassessed. Patient is alert, oriented x 3, equal unlabored respirations, skin warm/dry/pink. 18:58 Reassessment: Patient appears in no apparent distress at this time. Patient and/or jb4 family updated on plan of care and expected duration. Pain level reassessed. Patient is alert, oriented x 3, equal unlabored respirations, skin warm/dry/pink. Vital Signs: 16:10 BP 161 / 84; Pulse 72; Resp 16; Temp 97.5(O); Pulse Ox 97% on 2 lpm NC; Weight 78.02 jb4 kg; Height 5 ft. 10 in. ; 17:12 BP 149 / 80; Pulse 67; Resp 20; Pulse Ox 96% on R/A; jb4 18:30 Pulse 72; Resp 18; Pulse Ox 98% on R/A; jb4 16:10 Body Mass Index 24.68 (78.02 kg, 177.8 cm) jb4 ED Course: 16:05 Patient arrived in ED. rn 16:05 Clay Serrano, RN is Primary Nurse. jb4 16:05 Escobar Aguirre MD is Attending Physician. rn 16:06 Arm band placed on right wrist. jb4 16:07 Triage completed. jb4 16:10 Initial lab(s) drawn, by laborer [employer], sent to lab. Inserted saline lock: 18 gauge in right ts3 antecubital area, using aseptic technique. Blood collected. Flushed with 10 mL NS. 16:11 Patient has correct armband on for positive identification. Bed in low position. Call jb4 light in reach. Side rails up X 1. Provided Education on: plan of care. 16:11 No provider procedures requiring assistance completed. jb4 16:13 Troponin HS Sent. jb4 16:13 NT PRO-BNP Sent. jb4 16:14 CBC with Diff Sent. jb4 16:14 Basic Metabolic Panel Sent. jb4 16:14 COVID-19 Ag + Flu A+B Ag Sent. jb4 16:14 LFT's Sent. jb4 16:19 CT Abd/Pelvis - Without Contrast In Process Unspecified. EDMS 16:29 COVID-19 Ag + Flu A+B Ag Sent. ts3 16:45 EKG done, by automotive technician instructor. ts3 16:49 XRAY Chest (1 view) In Process Unspecified. EDMS 17:47 US Abdomen Limited In Process Unspecified. EDMS 18:59 IV discontinued, intact, bleeding controlled, No redness/swelling at site. Pressure jb4 dressing applied. Administered Medications: 16:56 Drug: Ondansetron IVP 4 mg IVP once; over 2 minutes Route: IVP; Site: right antecubital;jb4 17:13 Follow up: Response: No adverse reaction jb4 16:56 Drug: Levalbuterol Inhalation 1.25 mg Inhalation once Route: Inhalation; jb4 17:12 Follow up: Response: No adverse reaction; Marked relief of symptoms; Wheezing diminishedjb4 16:56 Drug: MethylPrednisoLONE IVP 125 mg IVP once Route: IVP; Site: right antecubital; jb4 17:13 Follow up: Response: No adverse reaction jb4 18:55 Drug: Amoxicillin-Clavulanate PO 875 mg PO once Route: PO; jb4 18:55 Follow up: Response: No adverse reaction; Marked relief of symptoms jb4 Medication: 16:11 VIS not applicable for this client. jb4 Outcome: 18:09 Discharge ordered by . rn 18:59 Discharged to home ambulatory, jb4 18:59 Condition: stable 18:59 Discharge instructions given to patient, Instructed on discharge instructions, follow up and referral plans. medication usage, Demonstrated understanding of instructions, follow-up care, medications, Prescriptions given X 3, 19:01 Patient left the ED. jb4 Signatures: Dispatcher [employer] EDMS Escobar Aguirre MD MD rn Bryson, James, RN RN jb4 Serrano, Taisha ts3 Corrections: (The following items were deleted from the chart) 16:45 16:11 Inserted saline lock: 20 gauge in right antecubital area, using aseptic ts3 technique. ,using aseptic technique. started by document image technician. Blood collected. jb4
[2024-10-30] MEDS ORDERED: AMOX/K CLAV 875 MG TAB ONE (18:47)
[2024-10-30 21:54] VITALS: TEMP 97.5
[2024-10-30 21:56] VITALS: BP 149/80
[2024-10-30 21:57] VITALS: O2SAT 98
== END 2024-10-30 19:01 | disposition home or self-care (01) ==
LOC: ER 16:03
DX: J44.1 Chronic obstructive pulmonary disease with (acute) exacerbation (principal); R11.0 Nausea; Z11.52 Encounter for screening for COVID-19
CPT/HCPCS: 85025; 80048; 36415; 80076; 84484; 83880; 74176; 71045; 76705; 87428; J7614; J2919; J2405; 93005